=== PATIENT | male | born 1965 | race African-American/Black ===

== ENCOUNTER 2016-04-19 18:23 | Emergency (ER) | payer OTHER ==
[2016-04-19 18:28] VITALS: BP 173/88
--- NOTE | 2016-04-19 18:34 | PROVIDER DOCUMENTATION ---
HPI-Male Problem - General Chief Complaint: UTI Symptoms Stated Complaint: BACK PAIN, PAINFUL URINATION Time Seen by Provider: 04/19/16 18:32 Source: patient Allergies/Adverse Reactions: Patient Allergies Allergy/AdvReac Type Severity Reaction Status Date / Time aspirin AdvReac NAUSEA/VOMI Verified 04/19/16 18:31 TING Home Medications: Home Medication List Medication Instructions Recorded Confirmed Last Taken Type Citalopram [Celexa] 40 mg PO QHS 10/25/15 04/19/16 04/18/16 History Fexofenadine HCl 180 mg PO QAM 10/25/15 04/19/16 04/19/16 09:00 History Multivitamin [Multivitamins] 1 each PO DAILY 11/08/15 04/19/16 04/19/16 09:00 History Carbidopa/Levodopa [Carbidopa-Levo 1 tab PO BID 02/29/16 04/19/16 04/19/16 09: 00 History ER 25-100 Tab] Metoprolol Succinate E.r. [Toprol 50 mg PO BID #0 tablet 03/03/16 04/19/1604/19 09:00 Rx Xl] Bupropion S.r. [Wellbutrin Sr] 150 mg PO QAM 04/19/16 04/19/16 04/19/16 09:00 History Cyclobenzaprine [Flexeril] 10 mg PO TID #20 tablet 04/19/16 Unknown Rx Gabapentin 100 mg PO TID 04/19/16 04/19/16 04/19/16 09:00 History Ibuprofen [Motrin] 800 mg PO Q8H PRN PRN #20 tablet 04/19/16 Unknown Rx Insulin Aspart Prot/Insuln Asp 55 unit SQ BID 04/19/16 04/19/16 04/19/16 09:00 History [Novolog Mix 70-30 Flexpen Syrn] Multivit-Min/FA/Lycopen/Lutein 1 each PO DAILY 04/19/16 04/19/16 04/19/16 09:00 History [Complete Multi 50+ Tablet] Omeprazole 40 mg PO DAILY 04/19/16 04/19/16 04/19/16 09:00 History Omeprazole [Prilosec] 20 mg PO DAILY@0700 #20 capsule 04/19/16 Unknown Rx - History of Present Illness-Male Nature of Presenting Problem: Pt is a 51 y/o M c chief complaint of R lower lumbar back pain radiating to his R buttocks x 2 hours. Pt has a h/o chronic lower lumbar back pain. Pt denies any dysuria, denies any loss of sensation to lower extremities or groin, denies any incontinence to bowel or bladder. On arrival, pt is ambulatory and in no distress. Review of Systems - Adult - REVIEW OF SYSTEMS - ADULT Constitutional: reports: no symptoms reported. denies: chills, fatique Eyes: reports: no symptoms reported. denies: blurred vision, double vision Ears, Nose, Mouth & Throat: reports: no symptoms reported. denies: ear pain, nose pain, throat pain Cardiovascular: reports: no symptoms reported. denies: chest pain, irregular heart rate Respiratory: reports: no symptoms reported. denies: cough, shortness of breath Gastrointestinal: reports: no symptoms reported. denies: abdominal pain, nausea Genitourinary: reports: no symptoms reported. denies: dysuria, frequent UTI's Musculoskeletal: reports: no symptoms reported. denies: joint pain, joint swelling Integumentary: reports: no symptoms reported. denies: hives, itching, rash Neurological: reports: no symptoms reported. denies: numbness, paresthesia Psychiatric: reports: no symptoms reported. denies: anxiety, emotional problems Endocrine: reports: no symptoms reported. denies: cold intolerance, heat intolerance Hematologic/Lymphatic: reports: no symptoms reported. denies: blood clots, low blood count Allergic/Immunologic: reports: no symptoms reported. denies: allergic reactions , food allergy All Other Systems: Reviewed and Negative Past History - Adult - PAST MEDICAL HISTORY-ADULT Review of Records: reports: Old Records Reviewed, Nursing Assessment Review, Medications Reviewed, Social history reviewed & non-contributory. Major Childhood Illnesses: reports: denies history Cardiovascular: reports: CHF, HTN Respiratory: reports: denies history Gastrointestinal: reports: denies history Obstetrical/Gynecological: reports: denies history Genitourinary: reports: denies history Musculoskeletal: reports: chronic pain (BACK) Neurological: reports: denies history Endocrine/Immune: reports: Diabetes Other Conditions: reports: other Additional History: mental deficits - PRIOR SURGERIES/PROCEDURES Surgical/Procedure History: reports: reviewed, not pertinent - PRIOR HOSPITALIZATIONS Prior Hospitalizations: reports: none - IMMUNIZATION STATUS Childhood Immunizations: See Nurse Assessment Flu Vaccine: See Nurse Assessment - FAMILY HISTORY Family History: reviewed, not pertinent - SOCIAL HISTORY Smoking: denies Substance Use: none/never Alcohol Use Frequency: never Living Situation: family Physical Exam-General - PHYSICAL EXAM-ADULT Initial Vital Signs Reviewed: Yes - CONSTITUTIONAL General Appearance: appears well, alert, no apparent distress - EYES Eyes: PERRL/EOMI, pink conjunctivae - HEAD, EARS, NOSE, MOUTH & THROAT HENMT: normocephalic/atraumatic, moist mucous membranes, normal ENT inspection - NECK Neck: non-tender - RESPIRATORY Respiratory: chest non-tender, lungs clear, normal breath sounds - CARDIOVASCULAR Cardiovascular: normal peripheral pulses, regular rate, rhythm, no edema - GASTROINTESTINAL (ABDOMEN) Abdominal Exam: normal bowel sounds, non tender, soft - MUSCULOSKELETAL Back Exam: normal inspection, no vertebral tenderness, CVA tenderness (RIGHT) Extremity: normal range of motion, non-tender, normal gait - SKIN Integumentary: normal color, normal turgor, warm/dry - NEUROLOGIC Neurologic: grossly normal, no motor/sensory deficits - PSYCHIATRIC Psych/Mental Status: normal mood/affect, normal thought content, normal thought process, oriented x 3 Progress - PLAN OF CARE/RESULTS Progress/Plan/Lab Results: Orders Category Date Time Status CHLAMYDIA AND GC BY PCR URINE [NAZARETH] Stat Lab 04/19/16 18:53 Received URINALYSIS W/POSS RFLX CULT [URINALYSIS] Stat Lab 04/19/16 18:53 Completed Laboratory Tests 04/19/16 18:53 Urine Source CLEAN CATCH Urine Color YELLOW Urine Turbidity CLEAR Urine pH 5.5 Ur Specific Marcell 1.017 Urine Protein NEGATIVE Ur Glucose (Stick) NEGATIVE Ur Ketones (Stick) NEGATIVE Urine Blood NEGATIVE Urine Nitrite NEGATIVE Urine Bilirubin NEGATIVE Urobilinogen Dipstick 2 A Urine Leukocytes NEGATIVE Urine WBC (Auto) <10 Urine RBC (Auto) <10 U Epithel Cells (Auto) <10 Urine Bacteria (Auto) NEGATIVE Vital Signs - 24 hr 04/19/16 18:26 Temperature 98.2 F Pulse Rate 79 Respiratory 18 Rate Blood Pressure 173/88 O2 Sat by Pulse 95 Oximetry - REASSESSMENT Reassessment #1 Time Reassessed: 19:30 (PT IS IN NO DISTRESS AND SLEEPING IN THE EXAM ROOM) Departure - Departure Time of Disposition Order: 19:24 DIAGNOSIS: Lumbar back pain Qualifiers: Chronicity: acute Back pain laterality: right Sciatica presence: with sciatica Sciatica laterality: sciatica of right side Qualified Code(s): M54.41 - Lumbago with sciatica, right side Disposition: HOME 01 Certified Medical Emergency: Emergent Condition: Stable Additional Instructions: ED Follow Up Instructions: You have been treated by a care provider in the Emergency Department. These instructions are being provided to you so you can have an understanding of how to care for yourself upon discharge. Upon discharge from the Emergency Department, you are responsible for making arrangements for follow-up care by a physician of your choice. Take all prescribed medications as directed. Return to the Emergency Department immediately for any new or worsening symptoms. You may call the Physician Referral phone number at [phone] to obtain a list of Physicians who are taking new patients. Prescriptions: Cyclobenzaprine [Flexeril] 10 mg PO TID #20 tablet Ibuprofen [Motrin] 800 mg PO Q8H PRN PRN #20 tablet PRN Reason: inflammation Omeprazole [Prilosec] 20 mg PO DAILY@0700 #20 capsule Referrals: Feliciano Rossi MD [Primary Care Provider] - Call for Appoint. -1 week (Call Office to Schedule follow-up visit in week(s)) Instructions: Back Pain, Adult, [id number] Attestation - Physician/ FRANCO Attestation Patient care was provided by Advanced Practice Provider:: Yes Advanced Practice Provider:: Carlos Lara Advanced Practice Provider documentation review:: The Mid-level provider documentation, treatment plan and medical decision making was reviewed by the physician who agrees with all treatment and medical decision making by the MLP.
[2016-04-19 18:56] LABS: URINE CULTURE NEEDED? NO; URINE MICRO REVIEW NEEDED? NO; URINE SOURCE CLEAN CATCH
[2016-04-19 19:09] LABS: BILIRUBIN URINE NEGATIVE (NEGATIVE); BLOOD URINE NEGATIVE (NEGATIVE); COLOR YELLOW; GLUCOSE URINE NEGATIVE (NEGATIVE); LEUKOCYTES URINE NEGATIVE (NEGATIVE); NITRITE URINE NEGATIVE (NEGATIVE); PH URINE 5.5; PROTEIN URINE NEGATIVE (NEGATIVE); SP GRAVITY URINE 1.017; TURBIDITY URINE CLEAR (CLEAR); UROBILINOGEN URINE 2 mg/dL (NORMAL)
[2016-04-19 19:11] LABS: UR EPITHELIAL CELLS <10 /HPF (<10); URINE BACTERIA NEGATIVE /HPF; URINE RBC <10 /HPF (<10); URINE WBC <10 /HPF (<10)
== END 2016-04-19 19:32 | disposition home or self-care (01) ==
LOC: ED 18:23
DX: M54.41 Lumbago with sciatica, right side (principal); M79.1 Myalgia; G89.29 Other chronic pain; I10 Essential (primary) hypertension; E11.9 Type 2 diabetes mellitus without complications; Z79.4 Long term (current) use of insulin; Z79.899 Other long term (current) drug therapy
CPT/HCPCS: 81001; 87491; 87591

== ENCOUNTER 2018-04-08 09:25 | Inpatient (IN) ==
--- NOTE | 2018-04-08 09:42 | PROVIDER DOCUMENTATION ---
HPI-General Adult - General Stated Complaint: L-KNEE SWOLLEN/FALL-HOME Time Seen by Provider: 04/08/18 09:40 Source: patient Allergies/Adverse Reactions: Patient Allergies Allergy/AdvReac Type Severity Reaction Status Date / Time aspirin AdvReac NAUSEA/VOMI Verified 01/25/17 06:29 TING Home Medications: Home Medication List Medication Instructions Recorded Confirmed Last Taken Type Citalopram [Celexa] 40 mg PO QHS 10/25/15 01/25/17 01/24/17 09:00 History Fexofenadine HCl 180 mg PO QAM 10/25/15 01/25/17 01/24/17 09:00 History Multivitamin [Multivitamins] 1 each PO DAILY 11/08/15 01/25/17 01/24/17 09:00 History Carbidopa/Levodopa [Carbidopa-Levo 1 tab PO BID 02/29/16 01/25/17 01/24/17 09: 00 History ER 25-100 Tab] Metoprolol Succinate E.r. [Toprol 50 mg PO BID #0 tablet 03/03/16 01/25/1701/24 21:00 Rx Xl] Bupropion S.r. [Wellbutrin Sr] 150 mg PO QAM 04/19/16 01/25/17 1 Week Ago History ~01/18/17 Gabapentin 100 mg PO TID 04/19/16 01/25/17 01/24/17 21:00 History Omeprazole 40 mg PO DAILY 04/19/16 01/25/17 01/24/17 09:00 History Amlodipine [Norvasc] 10 mg PO DAILY 12/08/16 01/25/17 01/24/17 09:00 History Brimonidine/Timolol Ophth Soln 1 drop BID 12/08/16 01/25/17 01/24/17 09:00 History [Combigan Ophth Soln] Furosemide 40 mg PO DAILY 12/08/16 01/25/17 01/24/17 09:00 History Insulin Humalog 75/25 [Humalog Mix 55 unit SUBQ BID 12/08/16 01/25/17 01/23/17 History 75/25] Losartan/Hydrochlorothiazide 1 each PO QHS 12/08/16 01/25/17 01/24/17 21:00 History [Losartan-Hctz 100-12.5 mg Tab] Meloxicam 15 mg PO DAILY 12/08/16 01/25/17 1 Week Ago History ~01/18/17 Olopatadine 0.2% Oph Solution 1 drop OP QHS 12/08/16 01/25/17 01/24/17 21:00 History [Pataday 0.2% Oph Solution] Polyethylene Glycol 3350 [Miralax] 17 gm PO DAILY PRN PRN 12/08/16 01/25/1712/01 21:00 History Tetrahydrozoline Oph Drops [Visine 1 - 2 drop OP 4XDAY PRN PRN 12/08/1612/13/16 08:00 History Oph Drops] Acetaminophen [Tylenol] 1,000 mg PO Q6H tablet 12/17/16 01/25/17 01/24/17 09: 00 Rx Docusate Sodium [Colace] 100 mg PO BID capsule 12/17/16 01/25/17 01/24/17 09: 00 Rx Rivaroxaban [Xarelto] 10 mg PO Q24H #14 tab 12/17/16 01/25/17 1 Week Ago Rx ~01/18/17 Olanzapine 1 each PO BID 01/25/17 01/25/17 01/24/17 21:00 History Famotidine [Pepcid] 20 mg PO DAILY tablet 01/28/17 Unknown Rx Tramadol [Ultram] 100 mg PO Q6H #120 tab 01/28/17 Unknown Rx Oxycodone I.r. [Oxy Ir] 5 - 10 mg PO Q3H PRN PRN #60 tab 02/16/17 Unknown Rx - History of Present Illness -Gen Adult Nature of Presenting Problems: 53 yo male pt who presents to the ED with complaint of left knee pain, swelling , and possible infection. Hx of total knee replacement with infection in the past. He reports that he fell approximately 1 weeks ago causing the pain and swelling. Denies taking any pain medication [employer]. Review of Systems - Adult - REVIEW OF SYSTEMS - ADULT Constitutional: reports: see geo MORAN Eyes: reports: no symptoms reported Ears, Nose, Mouth & Throat: reports: no symptoms reported Cardiovascular: reports: no symptoms reported Respiratory: reports: no symptoms reported Gastrointestinal: reports: no symptoms reported Genitourinary: reports: no symptoms reported Musculoskeletal: reports: see HPI, joint pain, joint swelling Integumentary: reports: see HPI, skin sores/ulcer Neurological: reports: no symptoms reported Psychiatric: reports: no symptoms reported Endocrine: reports: no symptoms reported Hematologic/Lymphatic: reports: no symptoms reported Allergic/Immunologic: reports: no symptoms reported Past History - Adult - PAST MEDICAL HISTORY-ADULT Review of Records: reports: Old Records Reviewed, Nursing Assessment Review, Medications Reviewed, Social history reviewed & non-contributory. Major Childhood Illnesses: reports: denies history Cardiovascular: reports: HTN Respiratory: reports: denies history Gastrointestinal: reports: denies history Obstetrical/Gynecological: reports: denies history Genitourinary: reports: incontinence Musculoskeletal: reports: arthritis, chronic pain (BACK) Neurological: reports: Seizures/Epilepsy, other (MR) Psychiatric: reports: anxiety, depression Endocrine/Immune: reports: Diabetes Other Conditions: reports: denies history Additional History: mental deficits - PRIOR SURGERIES/PROCEDURES Surgical/Procedure History: reports: joint replacement (left knee), other ( hemorrhoids) - PRIOR HOSPITALIZATIONS Prior Hospitalizations: reports: none - IMMUNIZATION STATUS Childhood Immunizations: See Nurse Assessment Flu Vaccine: See Nurse Assessment - FAMILY HISTORY Family History: reviewed, not pertinent - SOCIAL HISTORY Smoking: denies Physical Exam-General - PHYSICAL EXAM-ADULT Initial Vital Signs Reviewed: Yes - CONSTITUTIONAL General Appearance: alert, no apparent distress - EYES Eyes: PERRL/EOMI, pink conjunctivae - HEAD, EARS, NOSE, MOUTH & THROAT HENMT: normocephalic/atraumatic, moist mucous membranes, normal ENT inspection - NECK Neck: non-tender, full range of motion, supple, normal inspection - RESPIRATORY Respiratory: chest non-tender, lungs clear, normal breath sounds, no pleuratic chest pain, no respiratory distress, no accessory muscle use - CARDIOVASCULAR Cardiovascular: normal peripheral pulses, regular rate, rhythm, no edema, no gallop, no JVD, no murmur - GASTROINTESTINAL (ABDOMEN) Abdominal Exam: normal bowel sounds, non tender, soft - MUSCULOSKELETAL Back Exam: normal inspection, no CVA tenderness, no vertebral tenderness Extremity: normal range of motion, other (left knee with significant swelling, redness, and draining ulcerations) Peripheral Pulses: radial (R): 2+, radial (L): 2+, dorsalis-pedis (R): 2+, dorsalis-pedis (L): 2+ - SKIN Integumentary: normal color, normal turgor, warm/dry, other (with exception to the left knee which has moderate swelling, and redness) - NEUROLOGIC Neurologic: grossly normal, no motor/sensory deficits - PSYCHIATRIC Psych/Mental Status: oriented x 3, depressed affect, other (flat affect) Progress - PLAN OF CARE/RESULTS Progress/Plan/Lab Results: Vital Signs - 8 hr 04/08/18 09:35 Temperature 97.8 F Pulse Rate 115 H Respiratory Rate 18 Blood Pressure 150/79 O2 Sat by Pulse Oximetry 99 Orders Category Date Time Status KNEE 3 VIEWS LEFT [RAD] Stat Exams 04/08/18 09:[address] Rossi was contacted, and he came to the ED and saw and admitted the pt. Result Diagrams: 04/08/18 10:25 04/08/18 10:25 Departure - Departure Date of Disposition Decision: 04/08/18 Time of Disposition Decision: 15:06 DIAGNOSIS: DKA (diabetic ketoacidoses), Septic joint of left knee joint Disposition: ADMITTED INPATIENT 09 Certified Medical Emergency: Emergent Condition: Serious - Critical Care Note This patient required my direct & personal management of CC.: Yes Total Time (mins): 35 Critical Care Statement: This patient required my direct personal management to treat or rule out processes, the absence of which, could potentiallly result in sudden, clinically significant life or limb threatening deterioration. Attestation - Physician/ FRANCO Attestation Patient care was provided by Advanced Practice Provider:: Yes Advanced Practice Provider:: Pedro Sanford Advanced Practice Provider documentation review:: The Mid-level provider documentation, treatment plan and medical decision making was reviewed by the physician who agrees with all treatment and medical decision making by the P. The physician spent face to face time with patient:: No Advanced Practice Provider documentation review:: Supervising physician onsite and consulted in the evaluation and care of this patient. The physician did not have a face to face encounter with the patient.
[2018-04-08] MEDS ORDERED: NS 2,600 ML IV ONE (09:47)
--- NOTE | 2018-04-08 10:03 | Diag Imaging Result Doc PS360 ---
EXAM: KNEE 3 VIEWS LEFT HISTORY: trauma, with swelling TECHNIQUE: Left knee, three views COMPARISON: None. FINDINGS: There has been prior orthopedic replacement about the knee. There is a large amount of soft tissue swelling anteriorly and laterally about the knee. There is air within the soft tissues. No foreign body identified. No fracture. No dislocation. IMPRESSION: There is a large amount of anterior and lateral soft tissue swelling at the knee, but no acute fracture. Electronically signed by Hugo Juares 04/08/2018 10:00 AM
--- NOTE | 2018-04-08 10:10 | Diag Imaging Result Doc PS360 ---
EXAM: CHEST-1 VIEW HISTORY: tachycardia TECHNIQUE: Chest single view COMPARISON: 02/11/2017 FINDINGS: The lungs are well expanded. The heart is not enlarged. The vessels are not distended. There are no infiltrates. There may be a tiny left pleural effusion. Mild scoliosis IMPRESSION: Questionable tiny left pleural effusion. Electronically signed by Hugo Juares 04/08/2018 10:08 AM
[2018-04-08 10:59] LABS: BASO# 0.03 X1000 (0.0-0.2); BASO% 0.2 % (0.0-0.8); EOS# 0.01 X1000 (0.0-0.7); EOS% 0.1 % (0.0-10.0); HEMATOCRIT 41.9 % (42.0-52.0); HEMOGLOBIN 14.4 g/dL (14.0-18.0); IMM GRAN# 0.36 X1000 (0.0-0.04); LYMPH# 0.74 X1000 (1.2-3.4); LYMPH% 4.2 % (20.5-51.1); MCH 31.2 PG (27-31); MCHC 34.4 g/dL (33-37); MCV 90.9 FL (81-99); MONO# 1.19 X1000 (0.11-0.59); MONO% 6.7 % (1.7-9.3); MPV 10.7 FL (7.4-10.4); NEUT# 15.42 X1000 (1.4-6.5); NEUT% 86.8 % (42.2-75.2); PLT 778 X1000 (130-400); RBC 4.61 XMIL (4.7-6.1); WBC 17.75 X1000 (4.8-10.8)
[2018-04-08 11:15] LABS: INR 1.1
[2018-04-08] MEDS ORDERED: VANCOMYCIN 1 GM/NS 1 GM/250 ML IVPB IV ONE (11:22)
[2018-04-08] MEDS ORDERED: ZOFRAN IV ONE (11:22)
[2018-04-08] MEDS ORDERED: HUMULIN R IV ONE ×3 (11:22→16:29)
[2018-04-08 11:27] LABS: ALB/GLOB RATIO 0.8; CALCIUM 9.9 mg/dL (8.8-10.2); CREATININE 1.7 mg/dL (0.7-1.2); POTASSIUM 5.5 mmol/L (3.5-5.1); TOTAL BILIRUBIN 0.4 mg/dL (0.20-1.00); TOTAL PROTEIN 8.9 g/dL (6.3-8.3)
[2018-04-08 11:45] LABS: BANDS 14 % (0-1); CK INDEX 4.1 (0.0-2.5); CK-MB 22.56 ng/mL (0.0-5.0); LYMPHS 4 % (21-51); MONO 2 % (1-9); SEGS 74 % (42-75)
[2018-04-08 12:42] LABS: URINE SOURCE CLEAN CATCH
[2018-04-08 13:13] LABS: BILIRUBIN URINE NEGATIVE (NEGATIVE); BLOOD URINE MODERATE (NEGATIVE); COLOR YELLOW; GLUCOSE URINE >1000 mg/dL (NEGATIVE); KETONE URINE >150 mg/dL (NEGATIVE); LEUKOCYTES URINE MODERATE (NEGATIVE); NITRITE URINE NEGATIVE (NEGATIVE); PROTEIN URINE 30 mg/dL (NEGATIVE); SP GRAVITY URINE 1.021; TURBIDITY URINE CLEAR (CLEAR); UROBILINOGEN URINE NORMAL (NORMAL)
[2018-04-08 13:25] LABS: UR EPITHELIAL CELLS <10 /HPF (<10); URINE BACTERIA 2+ /HPF; URINE YEAST PRESENT
[2018-04-08] MEDS ORDERED: HUMULIN R 100 UNIT in NS 100 ML IV SCH (14:00)
[2018-04-08] MEDS ORDERED: NS 1,000 ML IV ONE ×2 (14:19→19:43)
[2018-04-08] MEDS ORDERED: HUMALOG SUBQ SCH (16:00)
[2018-04-08] MEDS ORDERED: HUMULIN R 100 UNIT in NS 99 ML IV SCH (16:29)
[2018-04-08] MEDS: NS 1,000 ML IV SCH ×6 (17:15→22:32)
[2018-04-08] MEDS ORDERED: POTASSIUM CHLORIDE 40 MEQ/SWI 40 MEQ/100 ML IVPB IV PRN (17:57)
[2018-04-08] MEDS ORDERED: MAGNESIUM SULFATE 2 GM/S.W.I. 2 GM/50 ML IVPB IV PRN (17:57)
[2018-04-08] MEDS ORDERED: SODIUM PHOSPHATE 30 MMOL in D5W 250 ML IV PRN (17:57)
[2018-04-08] MEDS ORDERED: LEVAQUIN 250 MG/D5W 250 MG/50 ML IVPB IV SCH (19:43)
[2018-04-08] MEDS ORDERED: TYLENOL PO PRN (19:43)
[2018-04-08] MEDS ORDERED: SODIUM CHLORIDE 0.9% INJ PRN (19:43)
[2018-04-08] MEDS ORDERED: PHENERGAN IV PRN (19:43)
[2018-04-08 19:44] LABS: AGAP 23; BUN 24 mg/dL (8-22); CHLORIDE 98 mmol/L (98-107); COSMO 283; CREATININE 1.4 mg/dL (0.7-1.2); ESTIMATED GFR > 60; GLUCOSE 326 mg/dL (70-104); PHOSPHORUS 1.1 mg/dL (2.7-4.5); POTASSIUM 4.2 mmol/L (3.5-5.1); SODIUM 133 mmol/L (136-145); TCO2 12 mmol/L (25-35)
[2018-04-08 19:57] LABS: URINE SOURCE CATH
[2018-04-08 19:59] LABS: BILIRUBIN URINE NEGATIVE (NEGATIVE); BLOOD URINE SMALL (NEGATIVE); COLOR STRAW; GLUCOSE URINE >1000 mg/dL (NEGATIVE); KETONE URINE >150 mg/dL (NEGATIVE); LEUKOCYTES URINE NEGATIVE (NEGATIVE); NITRITE URINE NEGATIVE (NEGATIVE); PROTEIN URINE TRACE mg/dL (NEGATIVE); SP GRAVITY URINE 1.021; TURBIDITY URINE HAZY (CLEAR); UROBILINOGEN URINE NORMAL (NORMAL)
[2018-04-08 20:00] LABS: UR EPITHELIAL CELLS <10 /HPF (<10); URINE BACTERIA NEGATIVE /HPF; URINE RBC <10 /HPF (<10); URINE WBC <10 /HPF (<10)
--- NOTE | 2018-04-08 20:06 | HISTORY AND PHYSICAL ---
HISTORY OF PRESENT ILLNESS: Mr. Galen Vega is a 53-year-old gentleman who is well known to me. He has a history of multiple medical problems including essential hypertension, gastroesophageal reflux disease, mixed hyperlipidemia, type 2 insulin-dependent diabetes mellitus complicated by polyneuropathy, and major depression. He has had a previous left knee periprosthetic patella fracture, status post left knee patellectomy in 01/2017. He presented to the ER today, complaining of a 3-day history of increasing swelling, pain and decreased range of motion in the left knee. In the ER they tapped the fluid in the left knee and noted that they were able to withdraw gross pus. The x-ray of the left knee demonstrated a large amount of anterior and lateral soft tissue swelling of the knee. No acute fracture was noted. His family reported that over the past several days he has been more confused, lethargic and difficult to arouse. He kept telling me over and over that it happened 2-3 days ago when I asked him to identify himself or whether or not he could tell me where he was located. As stated earlier, he does have a longstanding history of type 2 insulin-dependent diabetes mellitus complicated by polyneuropathy. Apparently he has not been taking his insulin regularly. He has had polyuria and polydipsia. His blood sugar was 672 on arrival. He has had polyuria and polydipsia. PAST MEDICAL HISTORY: Essential hypertension, type 2 insulin-dependent diabetes mellitus complicated by polyneuropathy, major depression, gastroesophageal reflux disease. PAST SURGICAL HISTORY: Hemorrhoidectomy, left total knee, left patellectomy. ALLERGIES: LOWELL inhibitors. FAMILY HISTORY: His father had known ischemic heart disease, status post [place], hypertension and rheumatoid arthritis. His mother has hypertension, COPD and insulin-dependent diabetes. One brother has hypertension and diabetes. One brother has gastroesophageal reflux disease. SOCIAL HISTORY: He denies the use of tobacco, alcohol or illicit drugs. MEDICATIONS: 1. Amlodipine 10 mg daily. 2. Combigan ophthalmic drops 1 drop to each eye b.i.d. 3. Wellbutrin SR 150 mg daily. 4. Sinemet 25/100 b.i.d. 5. Celexa 40 mg daily. 6. Colace 100 mg b.i.d. 7. Pepcid 20 mg daily. 8. Fexofenadine 180 mg daily. 9. Gabapentin 100 mg t.i.d. 10. Humalog 75/25, 55 units subcutaneously b.i.d. 11. Losartan/hydrochlorothiazide 100/12.5 mg daily. 12. Mobic 15 mg daily. 13. Metoprolol 50 mg b.i.d. 14. Zyprexa 2.5 mg b.i.d. REVIEW OF SYSTEMS: He denies any recent weight gain or weight loss. HEENT: No loss of visual or auditory acuity. CV: No chest pain, palpitations, or anginal equivalents. Pulmonary: No shortness of breath, PND or orthopnea. GI: No reflux, dysphagia, melena, hematochezia, change in bowel habits or rectal bleeding. Endocrine: He has polyuria and polydipsia. Skin: No easy bruisability. : No leakage of urine with coughing or laughing. Neurologic: No migraines or seizures. Psychiatric: He has a history of depression. PHYSICAL EXAMINATION: GENERAL: This is an acutely ill-appearing 53-year-old gentleman in no apparent distress. He is drowsy, sedated and does not answer questions appropriately. VITAL SIGNS: Temperature 97.8 degrees, pulse 115, respirations 18, BP 150/79. HEENT: Fundi with arteriolar wall thickening. Pupils equal, round, reactive to light. Extraocular eye movements intact. TMs without bullae. NECK: Supple. No masses, JVD or bruits. CARDIOVASCULAR: Regular rate and rhythm. LUNGS: Clear. ABDOMEN: Soft, nontender, with active bowel sounds. EXTREMITIES: He has significant soft tissue swelling and erythema of the left knee. GENITOURINARY/RECTAL: Exam is deferred. NEUROLOGIC: He moves all extremities grossly. He is sleepy and drowsy. He is oriented to name only. Cranial nerves 2-12 intact grossly. He has decreased light touch in the distal extremities bilaterally. LABORATORY DATA: Various laboratory studies were obtained. A CBC demonstrated a white count of 17.7, hemoglobin 14.4, hematocrit 41.9, platelet count 778,000. Electrolytes demonstrate the following: Sodium 122, potassium 5.5, chloride 79, BUN 30, creatinine 1.7, glucose 672. Urine demonstrated greater than 1000 mg of protein. He had a large acetone level. ASSESSMENT AND PLAN: 1. Metabolic encephalopathy. I suspect that he has a septic left knee associated with severe sepsis. He has a leukocytosis, greater than 12,000. Percent of bands is greater than 10%. He is tachycardic, tachypneic. We will begin broad-spectrum antibiotics including vancomycin, Zosyn and Levaquin pending blood and wound cultures. I have spoken to Dr. Ervin Yan about him. Once his sugars have been stabilized, I believe that he will need surgical incision, drainage and irrigation of the aforementioned knee. 2. Diabetic ketoacidosis. I am going to aggressively rehydrate him with normal saline. We gave him Humulin R 15 units in the emergency room. We will initiate the diabetic ketoacidosis protocol. Once his sugars are consistently below 200 and he is able to eat, we will transition him back to his regular home dosage of Novolin 75/25, 55 units subcutaneously b.i.d. 3. Hypertension. His blood pressure is stable. We will continue his current regimen of medications. cc: Capri Rossi MD
[2018-04-08] MEDS: LOVENOX SUBQ SCH (20:38)
[2018-04-08] MEDS ORDERED: CELEXA PO SCH (21:00)
[2018-04-08] MEDS ORDERED: HYZAAR 100/12.5 MG TAB PO SCH (21:00)
[2018-04-08] MEDS: D5 NS 1,000 ML IV SCH (21:53)
[2018-04-08] MEDS: POTASSIUM CHLORIDE 20 MEQ/SWI 20 MEQ/100 ML IVPB IV PRN (21:53)
[2018-04-08] MEDS: SINEMET CR 25/100 PO SCH (22:30)
[2018-04-08] MEDS: COLACE PO SCH (22:30)
[2018-04-08] MEDS: COMBIGAN OPHTH SOLN BOTH EYES SCH (22:31)
[2018-04-08] MEDS: ZYPREXA PO SCH (22:33)
[2018-04-08] MEDS: ZOSYN 2.25 GM in NS 50 ML IV SCH (22:33)
[2018-04-08] MEDS: NEURONTIN PO SCH (22:33)
[2018-04-08] MEDS: PATADAY 0.2% OPH SOLUTION BOTH EYES SCH (22:34)
--- NOTE | 2018-04-09 01:04 | CONSULTATION ---
DATE OF CONSULTATION: 04/08/2018 CHIEF COMPLAINT: Left knee swelling. HISTORY OF PRESENT ILLNESS: Galen Vega is a 53-year-old male who has uncontrolled diabetes as well as history of a left knee infection and poor compliance with medical care, partially due to his impaired cognitive function. He presented to the ER in diabetic ketoacidosis and Dr. Rossi asked me to see me in orthopedic consultation for his infected knee after they aspirated his knee. His index surgery was performed in November 2016. He fell thereafter , had a patellar fracture that was irreparable, had a patellectomy. Ultimately developed an infection in his knee and had an irrigation and debridement of his knee and has been on long-term antibiotics since that time. Past medical history, past surgical history, medicines, allergies, see admission history and physical. ROS: Unable to be obtained due to patient's mental status while in DKA. PHYSICAL EXAMINATION: Reveals he is cooperative with exam. His leg is markedly swollen. His knee is markedly swollen as well. His foot is otherwise neurovascularly intact. LABS: His white count is almost 18,000. His blood sugar is now down to 276 from initially about 491. He had cloudy fluid aspirated from his knee. ASSESSMENT: Infected left total knee arthroplasty. PLAN: We will plan due to his noncompliance to remove his total knee, performing irrigation and debridement of his knee, place an antibiotic spacer, and place a spanning Ex- Fix. Once the infection is cleared, we will likely do a fusion nail. cc: MD Capri Sarmiento MD [facility] HOSPITALAbdirashid
[2018-04-09] MEDS: D5 NS 1,000 ML IV SCH ×2 (03:39→06:11)
[2018-04-09 03:55] LABS: AGAP 11; BUN 16 mg/dL (8-22); CALCIUM 9.2 mg/dL (8.8-10.2); CHLORIDE 102 mmol/L (98-107); COSMO 277; ESTIMATED GFR > 60; GLUCOSE 203 mg/dL (70-104); MAGNESIUM 1.9 mg/dL (1.5-2.7); PHOSPHORUS 1.2 mg/dL (2.7-4.5); POTASSIUM 3.3 mmol/L (3.5-5.1); SODIUM 135 mmol/L (136-145); TCO2 22 mmol/L (25-35)
[2018-04-09] MEDS: POTASSIUM CHLORIDE 20 MEQ/SWI 20 MEQ/100 ML IVPB IV PRN ×2 (04:20→16:51)
[2018-04-09] MEDS: ZOSYN 2.25 GM in NS 50 ML IV SCH ×2 (04:20→10:15)
[2018-04-09] MEDS: POTASSIUM CHLORIDE 20 MEQ/SWI 20 MEQ/100 ML IVPB IV SCH ×3 (05:28→16:43)
[2018-04-09] MEDS ORDERED: PRILOSEC PO SCH (07:00)
[2018-04-09] MEDS ORDERED: THERA M PLUS PO SCH (09:00)
[2018-04-09] MEDS ORDERED: WELLBUTRIN SR PO SCH (09:00)
[2018-04-09] MEDS ORDERED: PEPCID PO SCH (09:00)
[2018-04-09] MEDS ORDERED: ALLEGRA PO SCH (09:00)
[2018-04-09] MEDS ORDERED: NORVASC PO SCH (09:00)
[2018-04-09] MEDS ORDERED: LR 1,000 ML IV SCH (10:00)
[2018-04-09] MEDS ORDERED: VANCOMYCIN ONE (10:12)
[2018-04-09] MEDS ORDERED: DIPRIVAN 1% ONE (10:13)
[2018-04-09] MEDS ORDERED: XYLOCAINE-MPF 2% ONE (10:13)
[2018-04-09] MEDS ORDERED: TOBRAMYCIN IV PER PHARMACY MISC SCH (10:15)
[2018-04-09] MEDS ORDERED: VANCOMYCIN IV PER PHARMACY MISC SCH (10:15)
[2018-04-09 10:27] LABS: URINE SOURCE CATH
[2018-04-09] MEDS ORDERED: TOBRAMYCIN POWDER MISC ONE (10:30)
[2018-04-09 10:31] LABS: BILIRUBIN URINE SMALL (NEGATIVE); BLOOD URINE MODERATE (NEGATIVE); CLARITY SLIGHTLY CLOUDY (CLEAR); COLOR YELLOW; GLUCOSE URINE 250 mg/dL (NEGATIVE); KETONE URINE TRACE mg/dL (NEGATIVE); LEUKOCYTES URINE NEGATIVE (NEGATIVE); NITRITE URINE NEGATIVE (NEGATIVE); PROTEIN URINE 30 mg/dL (NEGATIVE); UROBILINOGEN URINE 0.2 EU/dL (0.2-1.0)
[2018-04-09] MEDS ORDERED: VANCOMYCIN 2,500 MG in NS 500 ML IV ONE ×2 (11:00→14:30)
[2018-04-09] MEDS ORDERED: FENTANYL ONE (11:18)
[2018-04-09] MEDS ORDERED: SODIUM CHLORIDE 0.9% 10 ML ONE (11:45)
[2018-04-09] MEDS ORDERED: NEO-SYNEPHRINE ONE (11:49)
[2018-04-09] MEDS ORDERED: DILAUDID ONE (11:52)
[2018-04-09] MEDS ORDERED: ZOFRAN ONE (12:09)
[2018-04-09] MEDS ORDERED: NEOSPORIN G.U. IRRIGANT ONE (13:20)
[2018-04-09] MEDS ORDERED: QUELICIN (DOSE) ONE (14:50)
[2018-04-09] MEDS ORDERED: NARCAN ONE (15:00)
[2018-04-09 15:17] LABS: ALLEN TEST YES; BE -4.3 mmoll (-3.0-3.0); BLOOD TYPE ARTERIAL; HCO3-(ACT) 21.2 mmoll (20.0-26.0); METHB 1.3 % (0.0-1.5); O2(CT) 14.2 mL/dL (15.0-23.0); SAMPLE BLOOD; SAO2 87.1 % (95.0-100.0); THB 12.2 g/dL (11.5-17.4); pH(98.6) 7.24 (7.35-7.45)
[2018-04-09 15:19] LABS: MODALITY COOL AEROSOL; O2HB 82.7 % (95.0-99.0); PCO2(98.6) 55 mmHg (35-45); PO2(98.6) 45 mmHg (60-100)
[2018-04-09 15:47] LABS: BASO# 0.06 X1000 (0.0-0.2); BASO% 0.3 % (0.0-0.8); EOS# 0.01 X1000 (0.0-0.7); HEMOGLOBIN 12.5 g/dL (14.0-18.0); IMM GRAN# 0.36 X1000 (0.0-0.04); IMM GRAN% 1.5 % (0.0-0.5); LYMPH# 1.21 X1000 (1.2-3.4); LYMPH% 5.2 % (20.5-51.1); MCH 32.1 PG (27-31); MCHC 35.7 g/dL (33-37); MONO# 2.32 X1000 (0.11-0.59); MONO% 9.9 % (1.7-9.3); MPV 9.9 FL (7.4-10.4); NEUT# 19.43 X1000 (1.4-6.5); NEUT% 83.1 % (42.2-75.2); PLT 756 X1000 (130-400); RBC 3.89 XMIL (4.7-6.1); RDW 12.8 % (11.5-14.5); WBC 23.39 X1000 (4.8-10.8)
[2018-04-09 16:07] LABS: BANDS 6 % (0-1); LYMPHS 10 % (21-51); MONO 3 % (1-9); SEGS 79 % (42-75)
--- NOTE | 2018-04-09 16:07 | Diag Imaging Result Doc PS360 ---
EXAM: CHEST-1 VIEW HISTORY: O2 sat drop TECHNIQUE: Chest single view COMPARISON: 04/08/2018 FINDINGS: The right hemidiaphragm is elevated. The heart is not enlarged. There are central vascular prominence. Questionable trace left pleural fluid. No consolidation. IMPRESSION: Mild central vascular prominence. Electronically signed by Hugo Juares 04/09/2018 4:05 PM
[2018-04-09 16:09] LABS: LARGE PLATELETS OCCASIONAL
[2018-04-09 16:18] LABS: AGAP 12; ALB/GLOB RATIO 0.7; ALBUMIN 2.5 g/dL (3.5-5.0); ALKALINE PHOSPHATASE 132 U/L (32-122); BUN 15 mg/dL (8-22); CALCIUM 8.5 mg/dL (8.8-10.2); CHLORIDE 107 mmol/L (98-107); COSMO 283; CREATININE 1.2 mg/dL (0.7-1.2); ESTIMATED GFR > 60; GLUCOSE 146 mg/dL (70-104); GOT 29 U/L (10-34); GPT 16 U/L (10-44); MAGNESIUM 1.8 mg/dL (1.5-2.7); PHOSPHORUS 2.9 mg/dL (2.7-4.5); SODIUM 140 mmol/L (136-145); TCO2 21 mmol/L (25-35); TOTAL PROTEIN 6.2 g/dL (6.3-8.3)
[2018-04-09 16:19] LABS: BODY FLUID SOURCE MISCELLANEOUS; WBC BF 52 /cumm
[2018-04-09] MEDS: NEURONTIN PO SCH ×3 (16:29→17:14)
[2018-04-09] MEDS: COLACE PO SCH (16:29)
[2018-04-09] MEDS: ZYPREXA PO SCH (16:30)
[2018-04-09] MEDS: SINEMET CR 25/100 PO SCH (16:30)
[2018-04-09] MEDS: COMBIGAN OPHTH SOLN BOTH EYES SCH ×2 (16:43→22:00)
[2018-04-09 16:53] LABS: POLYS 6 %
[2018-04-09 16:54] LABS: MONOS 94 %
[2018-04-09 17:52] LABS: ALLEN TEST YES; BE -5.9 mmoll (-3.0-3.0); BLOOD TYPE ARTERIAL; HCO3-(ACT) 20.3 mmoll (20.0-26.0); METHB 1.5 % (0.0-1.5); O2(CT) 16.4 mL/dL (15.0-23.0); O2HB 95.6 % (95.0-99.0); PO2(98.6) 183 mmHg (60-100); SAMPLE BLOOD; SAO2 100.2 % (95.0-100.0); THB 11.9 g/dL (11.5-17.4)
[2018-04-09 17:56] LABS: MODALITY BI PAP; PCO2(98.6) 71 mmHg (35-45); pH(98.6) 7.14 (7.35-7.45)
[2018-04-09] MEDS: D5 LR 1,000 ML IV SCH (18:08)
--- NOTE | 2018-04-09 18:13 | Diag Imaging Result Doc PS360 ---
EXAM: CHEST-PORTABLE HISTORY: apnea, labored breathing TECHNIQUE: Verbal chest single view COMPARISON: 3:39 PM FINDINGS: Worsening pulmonary edema since the prior exam. Atelectasis versus infiltrates have developed in the right lung base. No other interval change. Electronically signed by Hugo Juares 04/09/2018 6:10 PM
[2018-04-09] MEDS ORDERED: DOPAMINE 800 MG/D5W 800 MG/500 ML IV.SOLN IV SCH ×2 (18:15→20:00)
[2018-04-09] MEDS ORDERED: VERSED IV ONE (18:35)
[2018-04-09] MEDS ORDERED: VERSED ONE (18:38)
[2018-04-09] MEDS ORDERED: AMIDATE ONE (18:38)
[2018-04-09] MEDS ORDERED: NORCURON ONE (18:38)
[2018-04-09] MEDS ORDERED: QUELICIN ONE (18:38)
[2018-04-09] MEDS ORDERED: QUELICIN IV ONE (18:40)
--- NOTE | 2018-04-09 19:25 | Diag Imaging Result Doc PS360 ---
EXAM: CHEST-PORTABLE HISTORY: intubation confirmation TECHNIQUE: Chest single view COMPARISON: 6:01 PM FINDINGS: An endotracheal tube has been placed. The tip is located approximately 3 to 4 cm above the jorge a and is in good position. There is a wire coiled over the thoracic inlet. This may be on the skin surface. However if a nasogastric tube has been placed, it is an an incorrect position and does not pass through the distal esophagus and into the stomach. Electronically signed by Hugo Juares 04/09/2018 7:22 PM
--- NOTE | 2018-04-09 20:11 | OPERATIVE NOTE ---
PROCEDURE DATE: 04/09/2018 PREOPERATIVE DIAGNOSIS: Left infected total knee arthroplasty. POSTOPERATIVE DIAGNOSIS: Left infected total knee arthroplasty. PROCEDURE: Removal of left total knee arthroplasty, irrigation, debridement of left knee, antibiotic bead placement, and spanning compressing external fixator. ANESTHESIA: General. SURGEON: Jasson Yan MD. TURNTABLE ENGINEER: EUGENE Gordillo. COMPLICATIONS: None. BLOOD LOSS: 300 mL. DRAINS: Hemovac x1. DESCRIPTION OF PROCEDURE: Patient brought to the operative suite and placed in supine position. After successful administration of general anesthesia, the left lower extremity was prepped and draped in usual sterile fashion. A sterile tourniquet was placed. The leg was exsanguinated. Tourniquet insufflated to 350 torr. A longitudinal incision was made using the previous incision. Cultures were obtained. It was copiously irrigated. The knee was then entered and cultures were again obtained. Necrotic tissue and the capsule of the infection both superficial and deep was excised including the synovium. The capsule was elevated medially and laterally using an oscillating saw. The femur and tibia were loosened and then osteotomes were used to completely remove the implants. Excess cement was removed with the osteotome and rongeurs. The necrotic tissue was removed as well. The knee was copiously irrigated with normal saline containing irrigant and then Bactisure, then normal saline containing irrigant and Vashe. Antibiotic beads with Tobramycin and vancomycin were placed in the tibial canal around the femur and around the anterior femur as well. The wound was then closed with Prolene sutures and a sterile dressing was applied after placing a drain that exited superior laterally, the next 2 pins were placed in the tibia and 2 Schanz pins were placed in the femur and then an external fixator was constructed. An x-ray showed excellent alignment of the tibia and the femur. We compressed it as well and re- tightened. Excellent compression and excellent alignment of the femur was obtained. The pin sites were covered sterilely and then 2 Alexi wraps were placed around it as well. A cooling blanket was applied. The patient tolerated the procedure without complication. At the end of the procedure, all counts were correct. The patient was transferred to the recovery room in stable condition. cc: MD Capri Sarmiento MD
[2018-04-09] MEDS: LOVENOX SUBQ SCH (20:25)
[2018-04-09] MEDS: PROTONIX IV SCH (20:26)
[2018-04-09 20:38] LABS: ALLEN TEST YES; BE -5.1 mmoll (-3.0-3.0); BLOOD TYPE ARTERIAL; HCO3-(ACT) 20.8 mmoll (20.0-26.0); MODALITY VENTILATOR; O2HB 91.9 % (95.0-99.0); PCO2(98.6) 40 mmHg (35-45); PO2(98.6) 64 mmHg (60-100); SAMPLE BLOOD; SAO2 96.8 % (95.0-100.0); SRATE 18 BPM; THB 11.6 g/dL (11.5-17.4); TVOL 550 mL; pH(98.6) 7.32 (7.35-7.45)
[2018-04-09] MEDS ORDERED: TOPROL XL PO SCH (21:00)
[2018-04-09 21:04] LABS: MAGNESIUM 1.8 mg/dL (1.5-2.7); PHOSPHORUS 4.4 mg/dL (2.7-4.5)
[2018-04-09] MEDS: PATADAY 0.2% OPH SOLUTION BOTH EYES SCH (22:00)
[2018-04-09] MEDS: MYCOSTATIN CREAM TOP SCH (22:00)
[2018-04-09] MEDS ORDERED: DIPRIVAN 1% 1,000 MG/100 ML BOTTLE IV SCH (22:00)
[2018-04-09] MEDS: MORPHINE IV PRN (22:20)
[2018-04-09] MEDS: DUONEB (A & A) INH SCH (23:44)
[2018-04-10 00:08] LABS: AGAP 15; BUN 20 mg/dL (8-22); CALCIUM 8.3 mg/dL (8.8-10.2); CHLORIDE 104 mmol/L (98-107); COSMO 283; CREATININE 1.3 mg/dL (0.7-1.2); ESTIMATED GFR > 60; GLUCOSE 220 mg/dL (70-104); POTASSIUM 4.7 mmol/L (3.5-5.1); SODIUM 137 mmol/L (136-145); TCO2 18 mmol/L (25-35)
[2018-04-10] MEDS: DUONEB (A & A) INH SCH ×6 (03:29→23:26)
[2018-04-10 04:05] LABS: CALCIUM 7.6 mg/dL (8.8-10.2); POTASSIUM 4.5 mmol/L (3.5-5.1)
[2018-04-10] MEDS: D5 LR 1,000 ML IV SCH ×3 (04:33→17:32)
[2018-04-10 04:52] LABS: ALLEN TEST YES; BLOOD TYPE ARTERIAL; HCO3-(ACT) 22.4 mmoll (20.0-26.0); METHB 1.6 % (0.0-1.5); MODALITY VENTILATOR; O2(CT) 21.1 mL/dL (15.0-23.0); O2HB 93.2 % (95.0-99.0); PCO2(98.6) 35 mmHg (35-45); PO2(98.6) 72 mmHg (60-100); SAMPLE BLOOD; SAO2 97.3 % (95.0-100.0); SRATE 18 BPM; THB 16.1 g/dL (11.5-17.4); TVOL 550 mL; pH(98.6) 7.39 (7.35-7.45)
[2018-04-10] MEDS ORDERED: POTASSIUM CHLORIDE 20 MEQ/SWI 20 MEQ/100 ML IVPB IV ONE (05:14)
[2018-04-10 06:18] LABS: HEMATOCRIT 27.5 % (42.0-52.0); HEMOGLOBIN 9.8 g/dL (14.0-18.0); MCH 32.3 PG (27-31); MCHC 35.6 g/dL (33-37); MCV 90.8 FL (81-99); MPV 10.4 FL (7.4-10.4); RBC 3.03 XMIL (4.7-6.1); WBC 38.84 X1000 (4.8-10.8)
[2018-04-10 06:27] LABS: MAGNESIUM 1.7 mg/dL (1.5-2.7); PHOSPHORUS 1.9 mg/dL (2.7-4.5)
[2018-04-10] MEDS ORDERED: MAGNESIUM SULFATE 2 GM/S.W.I. 2 GM/50 ML IVPB IV PRN ×2 (06:36→06:54)
[2018-04-10 06:49] LABS: ALB/GLOB RATIO 0.6; ALBUMIN 2.2 g/dL (3.5-5.0); TOTAL BILIRUBIN 0.67 mg/dL (0.20-1.00); TOTAL PROTEIN 5.6 g/dL (6.3-8.3)
[2018-04-10] MEDS ORDERED: NS 500 ML IV ONE ×2 (07:22→16:55)
[2018-04-10] MEDS: ATIVAN IV PRN (08:30)
[2018-04-10] MEDS: MORPHINE IV PRN (08:30)
[2018-04-10] MEDS: COMBIGAN OPHTH SOLN BOTH EYES SCH ×2 (08:49→20:28)
--- NOTE | 2018-04-10 08:49 | Diag Imaging Result Doc PS360 ---
EXAM: CHEST-PORTABLE - 04/10/2018 HISTORY: respiratory failure TECHNIQUE: Portable chest COMPARISON: 04/09/2018 FINDINGS: There is an endotracheal tube is tip approximately 6.5 cm above the jorge a. There is a nasogastric tube which can be followed to the mid stomach. Heart size appears within normal limits. There is subsegmental atelectasis at the bilateral lung bases. There is possibly mild perihilar edema on the right. There is no other consolidation, substantial pleural effusion, or pneumothorax identified. IMPRESSION: Bibasilar subsegmental atelectasis. Possible mild perihilar edema on the right. Electronically signed by Richard Gregg 04/10/2018 8:47 AM
[2018-04-10] MEDS: MYCOSTATIN CREAM TOP SCH ×2 (08:51→20:28)
[2018-04-10] MEDS ORDERED: VANCOMYCIN 1,700 MG in NS 250 ML IV SCH (09:00)
--- NOTE | 2018-04-10 11:18 | PULMONOLOGY CONSULTATION ---
DATE: 04/10/2018 REQUESTING PHYSICIAN: Dr. Conrad. REASON FOR CONSULTATION: Respiratory failure. HISTORY OF PRESENT ILLNESS: Mr. Vega is a 53-year-old, black male with insulin-requiring diabetes mellitus who underwent a left total knee arthroplasty on 12/14/2016. Unfortunately, in January of 2017, he fractured his leg and required a patellectomy. He subsequently required irrigation and debridement of his left total knee arthroplasty and MRSA was identified. He received 6 weeks of antibiotics under the direction of Dr. Dale De Leon. Then, according to the plan, he was to be placed on a chronic suppressive antibiotic (doxycycline or Bactrim). The patient presented to the emergency room on 04/08/2018 with increased pain, increased swelling in his left knee, along with DKA. The patient was taken to the operating room. His left knee joint was removed and antibiotic beads were placed into the resulting space. An external fixator was applied. The patient was successfully extubated but did require BiPAP after surgery. The patient's respiratory status became more labored last evening. He required intubation and initiation of mechanical ventilation. PAST MEDICAL HISTORY/PROBLEM LIST: 1. Diabetes mellitus, as per above. 2. Hypertension. 3. Neuropathy. 4. Gastroesophageal reflux disease. 5. Arthritis. SOCIAL HISTORY: No alcohol or tobacco use noted on his intake H and P. REVIEW OF SYSTEMS: Cannot be obtained. PHYSICAL EXAMINATION: General: Reveals an acutely ill-appearing male who appears older than his stated age, on mechanical ventilation. Vital Signs: Blood pressure 112/67, heart rate 107, respiratory rate 18, oxygen saturation 98%. HEENT: Pupils are equal and reactive. Oropharynx appears clear. Neck: Supple. Chest: Reveals good air entry bilaterally with coarse rhonchi. Cardiac Examination: S1, S2. Abdomen: Soft, with diminished bowel sounds. Extremities: Reveal an external fixator in place on the left at the site of the removal of the left total knee arthroplasty. LABORATORY DATA: Two blood cultures from the are growing methicillin- resistant Staphylococcus aureus. Sputum culture is pending. Knee cultures are pending. White blood count 38.8, hemoglobin 9.8, platelet count 545,000. Arterial blood gas prior to intubation, pH 7.14, pCO2 of 71, PO2 of 183. Arterial blood gas this morning, pH of 7.39, pCO2 of 35 , PO2 of 72. White blood count 38.8 thousand, hemoglobin 9.8, platelet count 545,000. Chest x-ray reveals bibasilar infiltrates. IMPRESSION: A 53-year-old with diabetes mellitus, who presents with an infected left knee joint, bacteremia, acute hypoxemic respiratory failure, acute hypercapnic respiratory failure, leukocytosis, diabetic ketoacidosis which has resolved, possible pneumonia. RECOMMENDATIONS: 1. Continue ventilatory support. We will evaluate for weaning tomorrow, pending results of chest x-ray and overall clinical status. 2. Await sputum culture report. 3. We will add gram-negative coverage in the event that his pulmonary infiltrates are not Staphylococcus aureus. 4. Routine bronchodilator management. 5. Routine gastric acid suppression. 6. Consider nutrition support if he is not extubated in the short term. Time spent in critical care management: 1 hour cc: MD Capri Schmidt MD MTDAbdirashid
[2018-04-10] MEDS: ZOSYN 3.375 GM in NS 50 ML IV SCH ×3 (11:30→23:00)
[2018-04-10] MEDS: HUMULIN R SUBQ SCH ×3 (12:20→20:46)
--- NOTE | 2018-04-10 15:38 | PROGRESS NOTE ---
DATE: 04/10/2018 SUBJECTIVE: Galen Vega is a 53-year-old male who is postoperative day 1 from a removal of prosthesis, irrigation, debridement and ex fix placement. He is on the ventilator and appears comfortable. His leg appears to be neurovascular intact with palpable pulses. He grimaces when moving his leg. The ex fix is in good position, there has been minimal drainage and no soiling of the dressing. ASSESSMENT: Stable left knee. PLAN: Will continue his current management. We will likely remove his drain and possibly change dressing tomorrow and remove his ice cooler. If he continues to have swelling and impinges on the cross part of the external fixator we may have to revise his position of his external fixator. cc: MD Capri Sarmiento MD
[2018-04-10 19:24] LABS: CALCIUM 7.5 mg/dL (8.8-10.2); CREATININE 3.2 mg/dL (0.7-1.2)
[2018-04-10] MEDS: LOVENOX SUBQ SCH (20:27)
[2018-04-10] MEDS: PROTONIX IV SCH (20:28)
[2018-04-10] MEDS: PATADAY 0.2% OPH SOLUTION BOTH EYES SCH (20:28)
[2018-04-11] MEDS: D5 LR 1,000 ML IV SCH ×2 (00:47→09:54)
[2018-04-11] MEDS: DUONEB (A & A) INH SCH ×6 (03:18→22:59)
[2018-04-11] MEDS: ZOSYN 3.375 GM in NS 50 ML IV SCH ×2 (03:20→08:01)
[2018-04-11] MEDS: HUMULIN R SUBQ SCH ×5 (03:23→20:57)
[2018-04-11 04:46] LABS: ALLEN TEST YES; BLOOD TYPE ARTERIAL; HCO3-(ACT) 21.8 mmoll (20.0-26.0); METHB 2.2 % (0.0-1.5); O2(CT) 11.3 mL/dL (15.0-23.0); O2HB 94.8 % (95.0-99.0); PCO2(98.6) 35 mmHg (35-45); PO2(98.6) 107 mmHg (60-100); SAMPLE BLOOD; SAO2 99.9 % (95.0-100.0); SRATE 15 BPM; THB 8.3 g/dL (11.5-17.4); TVOL 550 mL; pH(98.6) 7.38 (7.35-7.45)
[2018-04-11 04:47] LABS: MODALITY VENTILATOR
[2018-04-11 06:30] LABS: MAGNESIUM 1.6 mg/dL (1.5-2.7); PHOSPHORUS 1.4 mg/dL (2.7-4.5)
[2018-04-11 06:36] LABS: ALB/GLOB RATIO 0.6; CREATININE 3.9 mg/dL (0.7-1.2); POTASSIUM 3.8 mmol/L (3.5-5.1); TOTAL BILIRUBIN 0.95 mg/dL (0.20-1.00); TOTAL PROTEIN 5.5 g/dL (6.3-8.3)
--- NOTE | 2018-04-11 07:04 | Diag Imaging Result Doc PS360 ---
EXAM: CHEST-PORTABLE 04/11/2018 HISTORY: respiratory failure TECHNIQUE: AP portable at 0508 COMMENT: There is an endotracheal tube with its tip of the thoracic inlet and an NG tube with its tip below the diaphragm. There is patchy perihilar and basilar opacity bilaterally consistent with pneumonia. This is not changed appreciably since 04/10/2018. IMPRESSION: Bronchopneumonia plus minus pulmonary edema. Electronically signed by Jorge A Nunez 04/11/2018 7:02 AM
[2018-04-11] MEDS: COMBIGAN OPHTH SOLN BOTH EYES SCH ×2 (08:00→21:02)
[2018-04-11 08:43] LABS: HEMATOCRIT 21.6 % (42.0-52.0); HEMOGLOBIN 7.4 g/dL (14.0-18.0); MCH 31.8 PG (27-31); MCHC 34.3 g/dL (33-37); MCV 92.7 FL (81-99); MPV 10.3 FL (7.4-10.4); RBC 2.33 XMIL (4.7-6.1); RDW 13.2 % (11.5-14.5); WBC 23.58 X1000 (4.8-10.8)
[2018-04-11] MEDS: NS 1,000 ML IV SCH ×2 (09:00→20:54)
--- NOTE | 2018-04-11 09:06 | PROGRESS NOTE ---
DATE: 04/11/2018 SUBJECTIVE: Mr. Vega was admitted to [facility] on 04/08/2018 with metabolic encephalopathy secondary to a septic left knee with severe sepsis. He was started on broad- spectrum antibiotics including Levaquin, Zosyn, and vancomycin pending cultures. Dr. Yan performed removal of the left total knee arthroplasty, irrigation, debridement of the left knee with antibiotic bead placement and spanning compressing external fixator. Postoperatively he developed acute respiratory failure with hypercapnia requiring intubation. Mr. Vgea remains intubated. His chest x-ray this morning shows an endotracheal tube with its tip in the thoracic inlet and an NG tube with its tip below the diaphragm. There are patchy perihilar and basilar opacities consistent with pneumonia. Arterial blood gases this morning demonstrated a pH of 7.38, pCO2 35, PO2 107, and O2 sats 99%. Wound cultures are growing out MRSA. Renal function is deteriorating. Creatinine has increased from 1.2 on admission to 3.9. Urine output is low. OBJECTIVE: Vital Signs: Temperature 98.2 degrees, pulse 90, respirations 15, blood pressure 104/59. CV: Tachycardic, regular, S1, S2. Lungs: Crackles in the right base bilaterally. Abdomen: Soft, nontender with active bowel sounds. Extremities: There is 1+ edema in the low right lower extremity. LABS: Various laboratory studies were obtained. A CBC demonstrated a white count of 38.8, hemoglobin 9.8, hematocrit 27.5, and a platelet count of 545,000. Electrolytes demonstrate the following: Sodium 140, potassium 3.8, chloride 108, BUN 43, creatinine 3.9, glucose 369. ASSESSMENT AND PLAN: 1. Metabolic encephalopathy secondary to infected left total knee with severe sepsis. 2. Acute respiratory failure with suspected aspiration pneumonia requiring mechanical ventilation. 3. Diabetic ketoacidosis. Mr. Vega is quite ill. He is now off the insulin drip. His sugars are ranging from 331 to 422. I will begin NPH insulin 10 units subcutaneously b.i.d. and continue pattern sugars and a Humulin R sliding scale. We will titrate the insulin to get sugars consistently below 200. He has an infected left knee status post surgical debridement in association with severe sepsis and renal failure. His creatinine continues to deteriorate. We will dose the Zosyn for renal dysfunction. I will give him normal saline at 75 mL/h for 1 L. We will recheck a BMP in the morning. At this point, there does not appear to be evidence of hyperkalemia or significant acidosis or volume overload which would necessitate the need for dialysis. We will continue ventilatory support for his underlying respiratory failure and broad-spectrum antibiotics including vancomycin and Zosyn for the underlying pneumonia. cc: Capri Rossi MD
[2018-04-11] MEDS: MYCOSTATIN CREAM TOP SCH ×2 (10:00→21:04)
[2018-04-11] MEDS: HUMULIN N SUBQ SCH ×2 (10:25→20:59)
[2018-04-11 10:55] LABS: ALLEN TEST YES; BE -4.1 mmoll (-3.0-3.0); BLOOD TYPE ARTERIAL; HCO3-(ACT) 21.7 mmoll (20.0-26.0); METHB 2.1 % (0.0-1.5); O2(CT) 10.6 mL/dL (15.0-23.0); O2HB 94.4 % (95.0-99.0); PCO2(98.6) 37 mmHg (35-45); PO2(98.6) 101 mmHg (60-100); SAMPLE BLOOD; SAO2 99.8 % (95.0-100.0); THB 7.8 g/dL (11.5-17.4); pH(98.6) 7.36 (7.35-7.45)
[2018-04-11 10:56] LABS: MODALITY VENTILATOR
--- NOTE | 2018-04-11 14:32 | PULMONOLOGY PROGRESS NOTE ---
DATE: 04/11/2018 SUBJECTIVE: The patient is arousable. He will follow simple commands. His response to commands is slightly delayed. OBJECTIVE: Vital Signs: The patient has been afebrile for the last 24 hours. BP 119/72, heart rate 89, respiratory rate 15, oxygen saturation 100% on 40% FiO2. HEENT: Pupils are equal and reactive. Oropharynx appears clear. Neck: Supple. Chest: Reveals rhonchi bilaterally. Cardiac Examination: S1, S2. Abdomen: Soft, with diminished bowel sounds. Extremities: Reveal surgical dressings and an external fixation device on the left lower extremity. Laboratories: Chest x-ray reveals bilateral infiltrates. White blood count 23.6 thousand, hemoglobin 7.4, platelet count 477,000. Sodium 140, potassium 3.8, chloride 108 , bicarbonate 20, BUN 43, creatinine 3.9, glucose 369, phosphorus 1.4, magnesium 1.6. Arterial blood gas, pH 7.38, pCO2 of 35, PO2 of 107. IMPRESSION: 1. A 53-year-old with methicillin-resistant Staphylococcus aureus bacteremia and transient hypotension. 2. Acute-hypoxemic respiratory failure. 3. Pneumonia. 4. Diabetic ketoacidosis, which is resolved. 5. Hyperglycemia. 6. Acute renal failure. RECOMMENDATIONS: 1. Increase sliding scale insulin to q.4 hours in an attempt to achieve better glucose control. 2. Adjust Zosyn dosing given progression in renal failure. We will consider discontinuing this medication if sputum cultures remain negative. 3. Continue current IV fluid resuscitation. 4. Spontaneous breathing trial now to evaluate for extubation. Time spent in critical care management: 30+ minutes cc: MD Capri Schmidt MD MTDD
[2018-04-11] MEDS: ZOSYN 2.25 GM in NS 50 ML IV SCH ×2 (15:13→20:53)
[2018-04-11] MEDS: MORPHINE IV PRN ×2 (18:25→21:06)
--- NOTE | 2018-04-11 18:43 | PROGRESS NOTE ---
DATE: 04/11/2018 SUBJECTIVE: Mr. Vega is a 53-year-old male who is postoperative day 2 from a removal of his left total knee arthroplasty, irrigation, debridement and Ex-Fix placement. He is currently intubated and sedated and appears comfortable. OBJECTIVE: He is a well-developed, well-nourished male who is intubated and sedated. His left leg dressing is clean, dry, and intact. He has good capillary refill of his left lower extremity. ASSESSMENT: Postoperative day 2 from a left knee removal of total knee arthroplasty, irrigation, debridement and Ex-Fix placement. PLAN: We will continue with current management at this time. We will change his dressing tomorrow. Dictated by REESE Mason for Jasson Yan MD cc: REESE Mason MD M. Neel Roberts, MD
[2018-04-11] MEDS: PROTONIX IV SCH (20:54)
[2018-04-11] MEDS: LOVENOX SUBQ SCH (20:59)
[2018-04-11] MEDS: PATADAY 0.2% OPH SOLUTION BOTH EYES SCH (21:02)
[2018-04-11] MEDS ORDERED: VANCOMYCIN 1,600 MG in NS 250 ML IV SCH (22:00)
[2018-04-12] MEDS: HUMULIN R SUBQ SCH ×6 (01:28→20:11)
[2018-04-12] MEDS: DUONEB (A & A) INH SCH ×6 (02:49→23:44)
[2018-04-12] MEDS: ZOSYN 2.25 GM in NS 50 ML IV SCH ×4 (03:02→20:20)
[2018-04-12] MEDS: ATIVAN IV PRN ×2 (03:02→08:45)
[2018-04-12 04:39] LABS: ALLEN TEST YES; BE -4.4 mmoll (-3.0-3.0); BLOOD TYPE ARTERIAL; HCO3-(ACT) 21.5 mmoll (20.0-26.0); METHB 2.2 % (0.0-1.5); O2(CT) 12.3 mL/dL (15.0-23.0); O2HB 93.7 % (95.0-99.0); PCO2(98.6) 46 mmHg (35-45); PO2(98.6) 102 mmHg (60-100); SAMPLE BLOOD; SAO2 100.2 % (95.0-100.0); THB 9.2 g/dL (11.5-17.4); pH(98.6) 7.29 (7.35-7.45)
[2018-04-12 04:41] LABS: MODALITY VENTILATOR
[2018-04-12 05:37] LABS: BASO# 0.03 X1000 (0.0-0.2); BASO% 0.1 % (0.0-0.8); EOS# 0.14 X1000 (0.0-0.7); EOS% 0.5 % (0.0-10.0); HEMATOCRIT 20.6 % (42.0-52.0); HEMOGLOBIN 6.9 g/dL (14.0-18.0); IMM GRAN# 0.68 X1000 (0.0-0.04); IMM GRAN% 2.3 % (0.0-0.5); LYMPH# 1.54 X1000 (1.2-3.4); LYMPH% 5.2 % (20.5-51.1); MCH 31.7 PG (27-31); MCHC 33.5 g/dL (33-37); MCV 94.5 FL (81-99); MONO# 2.57 X1000 (0.11-0.59); MONO% 8.6 % (1.7-9.3); MPV 10.5 FL (7.4-10.4); NEUT# 24.88 X1000 (1.4-6.5); NEUT% 83.3 % (42.2-75.2); PLT 495 X1000 (130-400); RBC 2.18 XMIL (4.7-6.1); RDW 13.8 % (11.5-14.5); WBC 29.84 X1000 (4.8-10.8)
[2018-04-12] MEDS: MORPHINE IV PRN ×3 (05:47→22:51)
[2018-04-12 06:03] LABS: LYMPHS 6 % (21-51); MONO 7 % (1-9); NRBC 1 % (0-0); SEGS 87 % (42-75)
[2018-04-12 06:04] LABS: ALB/GLOB RATIO 0.6; ALBUMIN 2.3 g/dL (3.5-5.0); CALCIUM 7.4 mg/dL (8.8-10.2); CREATININE 5.6 mg/dL (0.7-1.2); POTASSIUM 3.7 mmol/L (3.5-5.1); TOTAL BILIRUBIN 1.18 mg/dL (0.20-1.00); TOTAL PROTEIN 5.9 g/dL (6.3-8.3)
--- NOTE | 2018-04-12 07:47 | Diag Imaging Result Doc PS360 ---
CHEST-PORTABLE - 04/12/2018 INDICATION: respiratory failure COMPARISON: 04/11/2018 FINDINGS: Support tubes are stable. Stable consolidation/collapse of the left lower lobe. Stable significant infiltrate at the right hilum and right lung base. No new infiltrates. Heart size remains top normal. IMPRESSION: No change from prior. Electronically signed by Neel Ramírez 04/12/2018 7:45 AM
[2018-04-12] MEDS: HUMULIN N SUBQ SCH ×2 (08:30→21:27)
[2018-04-12] MEDS: COMBIGAN OPHTH SOLN BOTH EYES SCH ×2 (08:50→20:16)
[2018-04-12] MEDS: MYCOSTATIN CREAM TOP SCH ×2 (09:00→20:15)
[2018-04-12 11:52] LABS: ALLEN TEST YES; BE -4.4 mmoll (-3.0-3.0); BLOOD TYPE ARTERIAL; HCO3-(ACT) 21.4 mmoll (20.0-26.0); METHB 2.7 % (0.0-1.5); O2(CT) 13.7 mL/dL (15.0-23.0); O2HB 93.5 % (95.0-99.0); PCO2(98.6) 43 mmHg (35-45); PO2(98.6) 135 mmHg (60-100); SAMPLE BLOOD; SAO2 100.2 % (95.0-100.0); THB 10.2 g/dL (11.5-17.4); pH(98.6) 7.31 (7.35-7.45)
[2018-04-12 11:54] LABS: MODALITY VENTILATOR
[2018-04-12] MEDS: NS 1,000 ML IV SCH (12:11)
--- NOTE | 2018-04-12 13:12 | PROGRESS NOTE ---
DATE: 04/11/2018 SUBJECTIVE: Galen Vega is a 53-year-old male who is postoperative day 3 from irrigation and debridement of his left knee with placement of external fixator. He is still on the ventilator but appears to be a responding somewhat. OBJECTIVE: His wound is clean, dry and intact without sign of infection. His blood sugar is improved. His white count is increasing, is now up to 28. His creatinine level is also increasing. IMPRESSION: Left knee septic joint status post irrigation and debridement and removal of his implant and sepsis with acute renal insufficiency. PLAN: We might consider changing him from vancomycin to daptomycin to somewhat protect his kidneys, but he certainly needs to be on something with his white count continuing to increase. As far as his knee is concerned, the wound is clean and intact. There is no sign of any drainage at all, and his pin sites are clean as well. ASSESSMENT: Stable left knee after irrigation with sepsis and acute renal failure. PLAN: We will continue dressing changes for now and monitor him. cc: MD Capri Sarmiento MD
--- NOTE | 2018-04-12 13:20 | PROGRESS NOTE ---
DATE: 04/12/2018 SUBJECTIVE: Mr. Vega has a history of type 2 insulin-dependent diabetes mellitus and was admitted to [facility] with diabetic ketoacidosis. He is now off an insulin drip and his sugars are ranging from 165 to 272 on NPH insulin 10 units subcutaneously b.i.d., plus sliding scale. He was also admitted to [facility] with a metabolic encephalopathy secondary to infected left knee with severe sepsis he seemed a little bit more alert this morning. He squeezed my fingers. He was nonverbal. He did open his eyes to verbal stimuli. He moves extremities grossly. Wound cultures grew out MRSA. Chest x-ray appears to show a dense infiltrate in the left lower lobe as well as the right hilum and right lung base sputum cultures are negative to this point. Wound cultures are growing out MRSA. He is still requiring mechanical ventilation. Arterial blood gases demonstrate a pH of 7.31, pCO2 43, PO2 135 and O2 saturation of 96% on FiO2 of 40%, PEEP of 5, pressure support of 5. Renal function continues to deteriorate. OBJECTIVE: Vitals: Temperature 99.6 degrees, pulse 89, respirations 13, blood pressure 120/67. Cardiovascular: Regular rate and rhythm. Lungs: Diminished breath sounds in the bases bilaterally. Abdomen: Soft, nontender, with active bowel sounds. Extremities: He has trace edema. LABORATORY: A CBC demonstrated a white count of 29,000, hemoglobin 6.9, hematocrit 20.6, and a platelet count of 495,000. Electrolytes demonstrated the following: Sodium 144, potassium 3.7, chloride 110, BUN 58, creatinine 5.6, and glucose 138. ASSESSMENT AND PLAN: 1. Type 2 insulin-dependent diabetes mellitus. He was admitted with diabetic ketoacidosis. We will continue normal saline at 75 mL per hour. We will continue pattern sugars, Humulin R sliding scale and long-acting inpatient NPH insulin. 2. Acute respiratory failure with hypoxia secondary to presumptive pneumonia. We will continue ventilatory support, DuoNeb nebulizer treatments, and broad-spectrum antibiotics. Hopefully, he will continue to improve to the point where we can try a weaning trial. 3. Metabolic encephalopathy secondary to septic left knee with severe sepsis complicated by acute renal failure. We will continue broad-spectrum antibiotics, including Zosyn and vancomycin dosed for renal dysfunction and fluids and continued support in ICU. His blood pressure is stable at this point in time, and I do not think he needs pressors at this time. Given the worsening renal function, we will ask Dr. Cruz's to see him. He is not having any signs of volume overload or hyperkalemia where he would need to be dialyzed at this point in time. 4. Acute blood loss anemia. His blood counts have dropped precipitously. His hemoglobin and hematocrit dropped from 14.4 and 41.9 to 6.9 and 20.6. I will type, cross match and transfuse 2 units of packed red blood cells. We will continue IV pantoprazole. We will check stools for occult blood. Overall, his prognosis is guarded. cc: Capri Rossi MD
[2018-04-12] MEDS ORDERED: AMIDATE ONE (15:42)
[2018-04-12] MEDS ORDERED: QUELICIN ONE (15:43)
[2018-04-12] MEDS ORDERED: QUELICIN IV ONE (15:48)
[2018-04-12] MEDS ORDERED: AMIDATE IV ONE (15:52)
--- NOTE | 2018-04-12 16:05 | Diag Imaging Result Doc PS360 ---
EXAM: CHEST-PORTABLE HISTORY: ETT placement TECHNIQUE: Portable chest single view Findings: There is an endotracheal tube with its tip located approximately 4 cm above the jorge a. This is in good position. A nasogastric tube overlies the esophagus and stomach. There are infiltrates in the left lung base. IMPRESSION: Endotracheal tube in good position. Electronically signed by Hugo Juares 04/12/2018 4:03 PM
--- NOTE | 2018-04-12 16:18 | Diag Imaging Result Doc PS360 ---
EXAM: CT HEAD W/O CONTRAST INDICATION: AMS TECHNIQUE: This exam was performed using automated exposure control, adjustment of mA or kV according to patient size, and/or use of iterative reconstruction technique. COMPARISON: 07/26/2014 FINDINGS: There is no definite acute infarct given the limited sensitivity of CT versus MRI. There is no discrete intracranial mass, mass effect, or intracranial hemorrhage. An NG tube is in place. There are small mucus retention cyst at the floors of the maxillary sinuses. Surrounding soft tissues and bony structures are essentially unremarkable, otherwise. IMPRESSION: No evidence of acute intracranial pathology. Electronically signed by Carlos Bray 04/12/2018 4:16 PM
[2018-04-12 16:21] LABS: BE -5.9 mmoll (-3.0-3.0); BLOOD TYPE ARTERIAL; HCO3-(ACT) 20.3 mmoll (20.0-26.0); O2(CT) 9.6 mL/dL (15.0-23.0); O2HB 90.9 % (95.0-99.0); PCO2(98.6) 48 mmHg (35-45); PO2(98.6) 69 mmHg (60-100); SAMPLE BLOOD; SAO2 99.3 % (95.0-100.0); THB 7.4 g/dL (11.5-17.4); pH(98.6) 7.25 (7.35-7.45)
--- NOTE | 2018-04-12 16:21 | NEPHROLOGY CONSULTATION ---
DATE: 04/12/2018 REASON FOR CONSULTATION: Acute kidney injury. HISTORY OF PRESENT ILLNESS: Mr. Vega is a 53-year-old man with history of diabetes, hypertension, hyperlipidemia, COPD, heart disease, etc. He has been on chronic suppressive antibiotics for an infected left knee prosthesis. He underwent removal of hardware on the and has an external fixator now in place. He developed acute kidney injury on the , and it has been progressively worsening since that time. Urine output has been acceptable. We are asked to see him and assist with his care. He has been receiving Zosyn. He has also been receiving vancomycin. His last vancomycin level was yesterday at 38.4. PAST MEDICAL HISTORY: As above. CURRENT MEDICATIONS: Include Zosyn, vancomycin, albuterol, ipratropium, Combigan, enoxaparin, insulin, lorazepam, magnesium, morphine, sodium chloride, pantoprazole, potassium, propofol. ALLERGIES: Aspirin. SOCIAL HISTORY: Not obtainable, except as listed in the chart. No alcohol or tobacco. FAMILY HISTORY: Not obtainable, except as listed in the chart. REVIEW OF SYSTEMS: Not obtainable, except as listed in the chart. PHYSICAL EXAMINATION: Vital Signs: Blood pressure 120/67, heart rate 79, respirations 13, afebrile. General: A middle-aged man, in no acute distress. Skin: Warm and dry. Eyes: Conjunctivae are pink. Neck: Neck veins are not distended. Heart: Regular. No gallops. Lungs: Equal. No crackles. Abdomen: Soft, nontender. Bowel sounds present. Extremities: No edema, clubbing, or cyanosis. IMPRESSION: Acute kidney injury. Good urine output. Electrolytes and acid-base are in target. No changes are required at this time. His vancomycin is being dosed based on levels by Pharmacy. Zosyn dose as appropriate. He has a high risk for requiring hemodialysis in the next 48 hours. cc: MD Capri Stoner MD
[2018-04-12 16:24] LABS: ALLEN TEST YES
[2018-04-12 16:25] LABS: METHB 3.4 % (0.0-1.5)
[2018-04-12 16:27] LABS: MODALITY COOL AEROSOL
--- NOTE | 2018-04-12 17:07 | Diag Imaging Result Doc PS360 ---
EXAM: US RENAL 2 (RETROPER) COMPLETE INDICATION: decreased renal function TECHNIQUE: COMPARISON: None. FINDINGS: The renal echotexture is increased bilaterally, which is a nonspecific indicator of medical renal disease. No discrete renal mass or hydronephrosis is identified. The right kidney measures 11.5 cm and left kidney measures 11.6 cm in the greatest longitudinal axes. The right renal cortex measures 1.2 cm and the left renal cortex measures 1.3 cm in thickness. There is a Stoner catheter in urinary bladder and the bladder is nondistended. IMPRESSION: Increased renal cortical echotexture, which is a nonspecific indicator of medical renal disease. Electronically signed by Carlos Bray 04/12/2018 5:04 PM
[2018-04-12 17:43] LABS: ALLEN TEST YES; BE -6.9 mmoll (-3.0-3.0); BLOOD TYPE ARTERIAL; HCO3-(ACT) 19.5 mmoll (20.0-26.0); METHB 2.8 % (0.0-1.5); O2(CT) 10.7 mL/dL (15.0-23.0); PCO2(98.6) 41 mmHg (35-45); PO2(98.6) 79 mmHg (60-100); SAMPLE BLOOD; SAO2 99.5 % (95.0-100.0); SRATE 15 BPM; THB 8.1 g/dL (11.5-17.4); TVOL 550 mL; pH(98.6) 7.28 (7.35-7.45)
[2018-04-12 17:44] LABS: MODALITY VENTILATOR
[2018-04-12 17:56] LABS: URINE SOURCE CATH
[2018-04-12 18:09] LABS: UR PROT RANDOM 49.2 mg/dL
[2018-04-12 18:22] LABS: BILIRUBIN URINE NEGATIVE (NEGATIVE); BLOOD URINE MODERATE (NEGATIVE); COLOR YELLOW; GLUCOSE URINE NEGATIVE (NEGATIVE); KETONE URINE NEGATIVE (NEGATIVE); LEUKOCYTES URINE LARGE (NEGATIVE); NITRITE URINE NEGATIVE (NEGATIVE); PH URINE 5.5; PROTEIN URINE 30 mg/dL (NEGATIVE); SP GRAVITY URINE 1.003; TURBIDITY URINE HAZY (CLEAR); UROBILINOGEN URINE NORMAL (NORMAL)
[2018-04-12 18:23] LABS: UR EPITHELIAL CELLS <10 /HPF (<10); URINE BACTERIA NEGATIVE /HPF; URINE RBC 20-40 /HPF (<10); URINE WBC TNTC /HPF (<10)
[2018-04-12 18:27] LABS: URINE YEAST PRESENT
[2018-04-12] MEDS: LOVENOX SUBQ SCH (20:11)
[2018-04-12] MEDS: PATADAY 0.2% OPH SOLUTION BOTH EYES SCH (20:16)
[2018-04-12] MEDS: PROTONIX IV SCH (20:19)
--- NOTE | 2018-04-13 00:01 | PULMONOLOGY PROGRESS NOTE ---
DATE: 04/12/2018 INTERIM HISTORY: Patient was evaluated earlier this morning. The patient had been on minimal ventilatory support for 24 hours. He would respond to commands but with some delay. The patient was extubated around lunchtime. The patient developed increased work of breathing and was not controlling his airway. The patient was reintubated and sent for a CT scan of the head. OBJECTIVE: The patient has been afebrile for the last 24 hours. BP 135/71, heart rate 93, respiratory rate 15, oxygen saturation 100%. His urine output has slightly improved over the last 24 hours.HEENT: Pupils appear reactive. Oropharynx appears clear. Neck: Is supple. Chest: Reveals rhonchi bilaterally. Cardiac: S1, S2 . Abdomen: Soft . Extremities: Reveal left leg with external fixator device in place. LABORATORIES: Renal ultrasound consistent with medical renal disease. CT scan of the head reveals no evidence of acute intracranial pathology. Chest x-ray following reintubation reveals infiltrate at the left base. No new microbiology data. White blood count 29, 000, hemoglobin 6.9, platelet count 495,000. IMPRESSION: 1. Acute hypoxemic respiratory failure. 2. Pneumonia. 3. Methicillin-resistant Staph aureus bacteremia with 4. Acute renal failure. 5. Diabetes with admission to the hospital with ketoacidosis. 6. Hyperglycemia. 7. Altered mental status due to diabetes or sepsis. 8. Negative CT scan of the head. RECOMMENDATIONS: 1. Agree with blood transfusion as ordered. 2. Continue ventilatory support until mental status and physical status improves. 3. Fluid management as outlined by Nephrology for acute renal failure. 4. Consider tube feeds tomorrow if he does have significant improvement. TIME SPENT IN CRITICAL CARE MANAGEMENT: 1-1/2 hours. cc: MD Capri Schmidt MD MTDAbdirashid
[2018-04-13] MEDS: HUMULIN R SUBQ SCH ×6 (00:04→21:10)
[2018-04-13] MEDS: NS 1,000 ML IV SCH ×2 (01:04→15:40)
[2018-04-13] MEDS: DUONEB (A & A) INH SCH ×6 (02:57→23:22)
[2018-04-13] MEDS: ZOSYN 2.25 GM in NS 50 ML IV SCH ×3 (03:54→15:50)
[2018-04-13 04:42] LABS: ALLEN TEST YES; BE -6.8 mmoll (-3.0-3.0); BLOOD TYPE ARTERIAL; HCO3-(ACT) 19.6 mmoll (20.0-26.0); METHB 1.6 % (0.0-1.5); O2HB 95.4 % (95.0-99.0); PCO2(98.6) 34 mmHg (35-45); PO2(98.6) 128 mmHg (60-100); SAMPLE BLOOD; SAO2 99.9 % (95.0-100.0); SRATE 15 BPM; TVOL 550 mL; pH(98.6) 7.34 (7.35-7.45)
[2018-04-13 04:44] LABS: MODALITY VENTILATOR
[2018-04-13 05:34] LABS: HEMATOCRIT 23.2 % (42.0-52.0); HEMOGLOBIN 7.6 g/dL (14.0-18.0); MCHC 32.8 g/dL (33-37); MCV 91.7 FL (81-99); MPV 10.3 FL (7.4-10.4); RBC 2.53 XMIL (4.7-6.1); RDW 15.9 % (11.5-14.5); WBC 31.17 X1000 (4.8-10.8)
[2018-04-13 06:03] LABS: ALB/GLOB RATIO 0.6; ALBUMIN 2.3 g/dL (3.5-5.0); CALCIUM 8.7 mg/dL (8.8-10.2); CREATININE 6.6 mg/dL (0.7-1.2); PHOSPHORUS 2.6 mg/dL (2.7-4.5); POTASSIUM 3.7 mmol/L (3.5-5.1); TOTAL BILIRUBIN 1.31 mg/dL (0.20-1.00); TOTAL PROTEIN 6.1 g/dL (6.3-8.3)
--- NOTE | 2018-04-13 07:38 | Diag Imaging Result Doc PS360 ---
EXAM: CHEST-PORTABLE HISTORY: respiratory failure TECHNIQUE: Portable chest single view COMPARISON: 04/12/2018 FINDINGS: No change in the endotracheal tube or nasogastric tube. There are infiltrates and atelectasis in the left lung base with a small effusion. Findings are slightly more prominent than on the prior study. Right infiltrates are unchanged. Mild scoliosis. IMPRESSION: Mild interval worsening in the left base. Electronically signed by Hugo Juares 04/13/2018 7:36 AM
[2018-04-13] MEDS: HUMULIN N SUBQ SCH ×2 (08:30→21:10)
[2018-04-13] MEDS: MYCOSTATIN CREAM TOP SCH ×2 (08:31→21:09)
[2018-04-13] MEDS: COMBIGAN OPHTH SOLN BOTH EYES SCH ×2 (08:31→21:09)
--- NOTE | 2018-04-13 13:09 | NEPHROLOGY PROGRESS NOTE ---
DATE: 04/13/2018 SUBJECTIVE: He was reintubated last night. He is currently sedated but arousable. OBJECTIVE: Vital signs: Blood pressure 126/70, heart rate 79, respiration 15, afebrile. Intake and output: Intake 2.7 L. Output 1.2 L. PHYSICAL EXAMINATION: General: Sedated as above. No acute distress. Skin: Warm and dry. HEENT: Conjunctivae are pink. Neck: Neck veins are not distended. Cardiovascular: Heart is regular with S4. Respiratory: Lungs are equal. No crackles. Abdomen: Soft, nontender. Bowel sounds present. Extremities: No edema, clubbing, or cyanosis. IMPRESSION: Acute kidney injury. Creatinine and BUN continued to rise. He has a moderate metabolic acidosis. BUN is 73. He does not have any acute indications for renal replacement therapy so we will continue to observe expectantly. Medications are reviewed. I will change his Zosyn dose to every 8 hours. No other changes are required today. cc: MD Capri Stoner MD
[2018-04-13] MEDS: MORPHINE IV PRN ×3 (13:25→21:08)
--- NOTE | 2018-04-13 13:37 | PROGRESS NOTE ---
DATE: 04/13/2018 SUBJECTIVE: Mr. Vega is a 53-year-old male who is postoperative day 4 from a removal of his left total knee arthroplasty, irrigation and debridement and ex-fix placement. He has had some bloody drainage from his left knee after changing his dressing yesterday. He continues to be intubated and sedated and appears comfortable. OBJECTIVE: He is a well developed, well nourished male. He is intubated and sedated. His left knee incision is intact. There is no erythema. There is bloody drainage at the medial aspect of the incision. ASSESSMENT: Postoperative day 4 from a left knee removal total knee arthroplasty, irrigation debridement and external fixator placement. PLAN: We will continue his dressing changes daily and continue his current management at this time. We will continue to monitor the drainage from his knee and if it continues to drain, we can consider taking him back to the operating room later this week and washing it out. Dictated by REESE Mason for Jasson Yan MD cc: REESE Mason MD M. Neel Roberts, MD
[2018-04-13] MEDS: PATADAY 0.2% OPH SOLUTION BOTH EYES SCH (21:09)
[2018-04-13] MEDS: PROTONIX IV SCH (21:09)
[2018-04-13] MEDS: LOVENOX SUBQ SCH (21:10)
--- NOTE | 2018-04-13 22:28 | PULMONOLOGY PROGRESS NOTE ---
DATE: 04/13/2018 SUBJECTIVE: The patient is arousable. He is slow to follow any commands. OBJECTIVE: Vital Signs: The patient has been afebrile over the last 24 hours and has had borderline hypothermia. Blood pressure 123/67, heart rate 87, respiratory rate 12, oxygen saturation 97%. HEENT: Pupils are equal and reactive. Oropharynx is clear but evaluation is limited with endotracheal tube in place. Neck: Supple. Chest: Reveals rhonchi bilaterally with decreased breath sounds at the left base. Abdomen: Soft with positive bowel sounds. Extremities: Left lower extremity with external fixator is unchanged. LABORATORIES: White blood count 31.2, hemoglobin 7.6, platelet count 433,000. Arterial blood gas reveals a pH 7.34, pCO2 of 34, PO2 of 128. IMAGING: Chest x-ray reveals continued infiltrate with slight worsening at the left base with minor infiltrates at the right base. IMPRESSION: The patient is a 53-year-old with 1. Acute hypoxemic respiratory failure requiring reintubation following his surgery and reintubation following a period on mechanical ventilation. 2. Pneumonia. 3. Methicillin-resistant Staphylococcus aureus infection of his left knee with bacteremia. 4. Acute renal failure. 5. Altered mental status. 6. Generalized weakness. 7. Diabetic ketoacidosis on admission with resolution. 8. Anemia, likely related to blood loss and his chronic disease. He remains weak and marginal for extubation. RECOMMENDATION: 1. Add Mucomyst as a mucolytic for thick secretions. 2. Continue current bronchial hygiene regimen. 3. Continue full ventilatory support with daily evaluations for extubation. 4. Continue antibiotics per Dr. Rossi. TIME SPENT: Critical care, 30+ minutes. cc: MD Capri Schmidt MD
[2018-04-14] MEDS: HUMULIN R SUBQ SCH ×6 (00:23→20:07)
[2018-04-14] MEDS: ZOSYN 2.25 GM in NS 50 ML IV SCH ×3 (00:24→15:56)
[2018-04-14] MEDS: DUONEB (A & A) INH SCH ×6 (03:04→22:52)
[2018-04-14] MEDS: MUCOMYST 20% INH SCH ×3 (03:05→19:22)
[2018-04-14] MEDS: NS 1,000 ML IV SCH (03:50)
[2018-04-14] MEDS: MORPHINE IV PRN ×4 (03:50→17:19)
[2018-04-14 05:22] LABS: ALLEN TEST YES; BLOOD TYPE ARTERIAL; HCO3-(ACT) 17.9 mmoll (20.0-26.0); METHB 1.4 % (0.0-1.5); O2(CT) 9.9 mL/dL (15.0-23.0); O2HB 94.4 % (95.0-99.0); PCO2(98.6) 40 mmHg (35-45); PO2(98.6) 93 mmHg (60-100); SAMPLE BLOOD; SAO2 99.2 % (95.0-100.0); SRATE 10 BPM; THB 7.3 g/dL (11.5-17.4); TVOL 550 mL; pH(98.6) 7.25 (7.35-7.45)
[2018-04-14 05:23] LABS: MODALITY VENTILATOR
[2018-04-14 05:41] LABS: HEMATOCRIT 20.7 % (42.0-52.0); HEMOGLOBIN 6.7 g/dL (14.0-18.0); MCH 30.3 PG (27-31); MCHC 32.4 g/dL (33-37); MCV 93.7 FL (81-99); RBC 2.21 XMIL (4.7-6.1); RDW 17.1 % (11.5-14.5); WBC 30.46 X1000 (4.8-10.8)
[2018-04-14 05:43] LABS: ALB/GLOB RATIO 0.6; ALBUMIN 2.2 g/dL (3.5-5.0); CREATININE 7.4 mg/dL (0.7-1.2); TOTAL BILIRUBIN 0.96 mg/dL (0.20-1.00); TOTAL PROTEIN 6.2 g/dL (6.3-8.3)
--- NOTE | 2018-04-14 07:19 | Diag Imaging Result Doc PS360 ---
EXAM: CHEST-PORTABLE 04/14/2018 HISTORY: respiratory failure TECHNIQUE: AP portable at 0501 COMMENT: There is an NG tube with its tip in the distal esophagus. There is an endotracheal tube with its tip at thoracic inlet. Compared to 04/13/2018 there has been some improvement in the opacification of the lung bases. IMPRESSION: Improved bibasilar atelectasis and/or pneumonia. Electronically signed by Jorge A Nunez 04/14/2018 7:16 AM
--- NOTE | 2018-04-14 08:16 | PROGRESS NOTE ---
DATE: 04/14/2018 SUBJECTIVE: Galen Vega is a 53-year-old male with a left septic knee, status post irrigation and debridement, and external fixator placement. OBJECTIVE: He is intubated. He continues to have increasing sepsis with a white count of 30,000 now. He continues to have decreasing kidney function with a creatinine of 7.4. His knee wound has some mild sanguinous drainage, but no sign of infection. His external fixator is in good position. ASSESSMENT: Sepsis with acute renal failure secondary to infected total knee arthroplasty. PLAN: He will continue his current medical care. We have really nothing else to offer at this time orthopedically. I will be available as needed. cc: MD Capri Sarmiento MD
[2018-04-14] MEDS: COMBIGAN OPHTH SOLN BOTH EYES SCH ×2 (08:50→20:08)
[2018-04-14] MEDS: MYCOSTATIN CREAM TOP SCH ×2 (08:50→20:07)
[2018-04-14] MEDS: HUMULIN N SUBQ SCH ×2 (08:56→20:06)
--- NOTE | 2018-04-14 08:57 | NEPHROLOGY PROGRESS NOTE ---
DATE: 04/14/2018 TIME SEEN: 0605. SUBJECTIVE: Mr. Vega is resting quietly in bed. He is ventilator dependent. OBJECTIVE: Vital Signs: His most recent vital signs, the patient's previous temperature 97.2 degrees, blood pressure 127/65, heart rate 86, respirations are 14. He is on 30 % FiO2. His last recorded saturation is 97%. The patient has had 1950 in and 1025 out. He remains 10 L positive. Labs: Sodium 147, potassium 4, chloride is 115, CO2 18, BUN 77, creatinine 7.4 , glucose 107, anion gap of 14, calcium 9, phosphorus 4, albumin is 2.2. White count 30.46, hemoglobin 6.7, hematocrit 20.7, platelet count 455,000. ABGs, pH 7.25, CO2 40, PO2 93, bicarb 17.9, lactate 0.9 with ventilatory support. Physical Examination: General: This is a 53-year-old male resting quietly in bed. He appears chronically ill. No acute distress. Ventilator dependent. HEENT: Normocephalic, atraumatic. Conjunctivae are pale. He has SANDRA. Mucous membranes are dry. Neck: Supple. Trachea midline. No evidence of JVD. Cardiovascular: Regular rate and rhythm. S4 is present. Lungs: Clear to auscultation anteriorly. Equal excursion. Remains on ventilatory support. Abdomen: Soft, nontender. Positive bowel sounds. NG tube remains intact. Genitourinary: Stoner catheter is in place. Adequate urine has been documented. Continues with NG tube to low intermittent suction. Extremities: Have no edema. No clubbing or cyanosis. Neurological: As mentioned above. ASSESSMENT AND PLAN: 1. Acute kidney injury. Patient's BUN and creatinine continue to elevate. His creatinine is at 7.4 today from 6.6. BUN is 77 from 73. The patient has continued with adequate urine output but due to these rising numbers, we will contact the family in regards with initiation of hemodialysis. If in agreement, we will contact the surgeon today with plan to start dialysis in the morning. 2. Electrolytes and acid-base balance. Electrolytes are stable. The patient has stable CO2. CO2 on his arterial blood gases is 40 today. 3. Anemia. The patient has already received 2 units of packed red blood cells during his hospitalization. His hemoglobin is back down to 6.7 after receiving 2 units of packed red blood cells on the . We will defer to the primary care team for transfusion. 4. Leukocytosis. The patient remains septic. This is followed by his surgeon, Dr. Yan. The patient remains on Zosyn and intravenous fluids. This is renally dosed. 5. Respiratory failure. Followed by the primary care and pulmonology. I would like to thank you for allowing us to follow with this patient. Dictated by EUGENE Agee for Donell Cruz MD Face to face encounter, data reviewed, discussed with Diamond Mcgovern on 04/14/18. I agree with the above assessment and plan of care. cc: EUGENE Agee MD M. Neel Roberts, MD MTDD
[2018-04-14] MEDS ORDERED: LASIX IV SCH (09:00)
--- NOTE | 2018-04-14 09:21 | PROGRESS NOTE ---
DATE: 04/14/2018 SUBJECTIVE: Mr. Vega does not seem as awake and appears more sedated this morning. He opens his eyes to verbal stimuli but does not squeeze my finger as he has the past 2 days. He is still requiring mechanical ventilation. OBJECTIVE: ABGs this morning demonstrated a pH of 7.25, pCO2 40, PO2 93 and an O2 saturation of 99.2%. He is on assist control with a rate of 10, FiO2 of 30%, tidal volume 550 and pressure support of 10. His chest x-ray this morning demonstrated an NG tube with its tip in the distal esophagus. There has been some improvement in the infiltrates in the bases. His renal function is continuing to deteriorate. His BUN and creatinine were 77 and 7.4 this morning. He was admitted with diabetic ketoacidosis. He is on NPH insulin with sliding scale. Blood sugars are ranging from 129 to 158. PHYSICAL EXAMINATION: Vital signs: Temperature 98.3 degrees, pulse 90, respiratory rate 12, blood pressure 132/66. Cardiovascular: Regular rate and rhythm. Lungs: Diminished breath sounds in the bases with scattered rhonchi. Abdomen: Soft, nontender, with active bowel sounds. LABORATORY DATA: Various laboratory studies were obtained. Electrolytes demonstrate the following. Sodium 147, potassium 4.0, chloride 115, CO2 18, BUN 77, creatinine 7.4, glucose 107. CBC demonstrated a white count of 30.4, hemoglobin 6.7, hematocrit 20.7 and a platelet count of 455,000. A sputum culture demonstrated yeast. Cultures from the wound demonstrated methicillin- resistant Staph aureus sensitive to vancomycin, tetracycline and sulfa. ASSESSMENT AND PLAN: 1. Type 2 insulin-dependent diabetes mellitus. The patient was admitted with diabetic ketoacidosis. The diabetic ketoacidosis has resolved. We will continue Humulin N 10 units subcutaneously b.i.d. with a Humulin R sliding scale. 2. Metabolic encephalopathy secondary to acute respiratory failure with aspiration pneumonia and septic left knee with severe sepsis complicated by acute renal failure. He does not seem as alert this morning. He is currently on vancomycin for the Staph sepsis and Zosyn for the apparent aspiration pneumonia. Chest x-ray has improved. He still seems too sedated to attempt a weaning trial. We will continue Zosyn nebulizer treatments, and appreciate Dr. Bashir's management of the ventilator. It is concerning that his white count continues to trend upward. He is on broad-spectrum antibiotics including Zosyn and vancomycin. Renal function continues to deteriorate. Given the acidosis, I am afraid that he is at very high risk for requiring hemodialysis. 3. Mild protein calorie malnutrition. He has had little oral intake. His albumin is quite low. We will consult Dietary for recommendations for tube feedings. 4. Acute blood loss anemia. I suspect that he may have anemia due to blood loss as well as to acute renal failure. I am going to type, cross match and transfuse 2 units of packed red blood cells and give him Lasix between units. 5. Condition is guarded. cc: Capri Rossi MD
--- NOTE | 2018-04-14 12:22 | Diag Imaging Result Doc PS360 ---
CHEST-PORTABLE - 04/14/2018 11:48 AM INDICATION: NGT placement check COMPARISON: 5:01 AM FINDINGS: There has been advancement of the nasogastric tube. The nasogastric tube tip is in the distal gastric antrum. Stable endotracheal tube in good position. IMPRESSION: Nasogastric tube advanced and the tip is now in the distal stomach antrum. Electronically signed by Neel Ramírez 04/14/2018 12:19 PM
[2018-04-14] MEDS: SODIUM BICARBONATE 8.4% 50 MEQ in D5W 1,000 ML IV SCH (14:32)
--- NOTE | 2018-04-14 15:14 | PULMONOLOGY PROGRESS NOTE ---
DATE: 04/14/2018 SUBJECTIVE: The patient opens his eyes to voice. He does not follow commands. OBJECTIVE: Vital Signs: The patient has been afebrile over the last 24 hours. Blood pressure 147/74, heart rate 97, respiratory rate 15, oxygen saturation 100%. HEENT: Pupils are equal and reactive. Oropharynx appears clear. Neck: Supple. Chest: Reveals coarse rhonchi bilaterally. Cardiac: S1, S2. Abdomen: Soft with positive bowel sounds. Extremities: Reveal no change in fixer device on the left lower extremity. LABORATORIES: Chest x-ray reveals some re-expansion with decreased atelectasis/infiltrate at the left lower lobe. White blood count remains elevated at 30,000, hemoglobin 6.7, platelet count 455,000. Arterial blood gas reveals a pH 7.27, pCO2 of 40, PO2 of 93. Sodium 147, potassium 4.0, chloride 115, bicarbonate 18, BUN 100, creatinine 7.4. IMPRESSIONS: This is a 53-year-old with: 1. Long-standing history of diabetes mellitus. 2. Acute hypoxemic respiratory failure requiring intubation following surgery and re-intubation following extubation in the ICU. 3. Pneumonia. 4. Methicillin-resistant Staph aureus infection of the left knee with bacteremia. 5. Acute renal failure. 6. Altered mental status. 7. Generalized weakness. 8. Anemia. He is requiring a 2nd unit of blood today. 9. Ketoacidosis with resolution. RECOMMENDATIONS: 1. Continue ventilatory support pending improvement of mental status. The patient did not control his airway after his last extubation. 2. Continue bronchial hygiene. 3. Adjust IV fluids for hypernatremia and his hyperchloremic metabolic acidosis. 4. Continue antibiotics. 5. Agree with initiation of tube feeds. CRITICAL CARE TIME: Time spent in critical care, 30+ minutes. cc: MD Capri Schmidt MD
[2018-04-14] MEDS: LOVENOX SUBQ SCH (20:06)
[2018-04-14] MEDS: PROTONIX IV SCH (20:06)
[2018-04-14] MEDS: PATADAY 0.2% OPH SOLUTION BOTH EYES SCH (20:09)
[2018-04-15] MEDS: ZOSYN 2.25 GM in NS 50 ML IV SCH ×3 (00:33→17:58)
[2018-04-15] MEDS: HUMULIN R SUBQ SCH ×7 (00:33→19:48)
[2018-04-15] MEDS: SODIUM BICARBONATE 8.4% 50 MEQ in D5W 1,000 ML IV SCH (01:15)
[2018-04-15] MEDS: DUONEB (A & A) INH SCH ×6 (03:00→23:30)
[2018-04-15 04:54] LABS: ALLEN TEST YES; BLOOD TYPE ARTERIAL; HCO3-(ACT) 18.6 mmoll (20.0-26.0); METHB 1.6 % (0.0-1.5); O2(CT) 14.1 mL/dL (15.0-23.0); O2HB 94.4 % (95.0-99.0); PCO2(98.6) 46 mmHg (35-45); PO2(98.6) 89 mmHg (60-100); SAMPLE BLOOD; SAO2 98.4 % (95.0-100.0); SRATE 10 BPM; THB 10.5 g/dL (11.5-17.4); TVOL 550 mL; pH(98.6) 7.23 (7.35-7.45)
[2018-04-15 04:55] LABS: MODALITY VENTILATOR
[2018-04-15 05:47] LABS: HEMATOCRIT 24.6 % (42.0-52.0); HEMOGLOBIN 7.9 g/dL (14.0-18.0); MCH 29.4 PG (27-31); MCHC 32.1 g/dL (33-37); MCV 91.4 FL (81-99); MPV 10.7 FL (7.4-10.4); RBC 2.69 XMIL (4.7-6.1); RDW 17.7 % (11.5-14.5); WBC 27.26 X1000 (4.8-10.8)
[2018-04-15 06:31] LABS: ALB/GLOB RATIO 0.5; ALBUMIN 2.2 g/dL (3.5-5.0); CALCIUM 9.3 mg/dL (8.8-10.2); CREATININE 8.4 mg/dL (0.7-1.2); PHOSPHORUS 4.3 mg/dL (2.7-4.5); POTASSIUM 4.5 mmol/L (3.5-5.1); TOTAL BILIRUBIN 0.71 mg/dL (0.20-1.00)
--- NOTE | 2018-04-15 07:24 | Diag Imaging Result Doc PS360 ---
CHEST-PORTABLE - 04/15/2018 INDICATION: respiratory failure COMPARISON: 04/14/2018 FINDINGS: Support tubes are stable. Stable hazy bibasilar infiltrates. No new infiltrates. No pneumothorax or large pleural effusion. Heart size remains normal. IMPRESSION: No change from prior. Electronically signed by Neel Ramírez 04/15/2018 7:22 AM
[2018-04-15] MEDS: MUCOMYST 20% INH SCH ×2 (08:18→19:48)
[2018-04-15] MEDS: HUMULIN N SUBQ SCH ×3 (08:35→20:46)
[2018-04-15] MEDS: COMBIGAN OPHTH SOLN BOTH EYES SCH ×3 (08:43→20:31)
[2018-04-15] MEDS: MYCOSTATIN CREAM TOP SCH ×3 (08:43→20:47)
--- NOTE | 2018-04-15 08:50 | PROGRESS NOTE ---
DATE: 04/15/2018 SUBJECTIVE: Mr. Vega is a 53-year-old male, who is postoperative day 6 from a removal of his left total knee arthroplasty, irrigation, debridement and Ex Fix placement. He continues to be intubated and sedated and appears to be resting comfortably. OBJECTIVE: General: He is a well-developed male, who is intubated and sedated. Appears comfortable. Extremities: His left knee incision is intact. There continues to be some bloody drainage at the medial aspect of the incision. He has 2+ pedal pulse on the left lower extremity. ASSESSMENT: Stable postoperative day 6 from a left knee removal, total knee arthroplasty, irrigation, debridement and ex Fix placement. PLAN: We will continue current management and continue his dressing changes daily. It appears that drainage from his wound has improved and is slowing down, but will continue to monitor his left knee. Dictated by REESE Mason for Jasson Yan MD cc: REESE Mason MD M. Neel Roberts, MD
[2018-04-15] MEDS ORDERED: HEPARIN IV PRN (08:58)
[2018-04-15] MEDS ORDERED: NS 2,000 ML MISC PRN (08:58)
[2018-04-15] MEDS ORDERED: TIGHT: 0.2 ML/HR FOR DIALYSIS MISC PRN (08:58)
[2018-04-15] MEDS ORDERED: VANCOMYCIN 1 GM/NS 1 GM/250 ML IVPB IV SCH (09:45)
[2018-04-15] MEDS: MIRALAX PO SCH ×2 (13:34→17:44)
--- NOTE | 2018-04-15 13:50 | PROGRESS NOTE ---
DATE: 04/15/2018 SUBJECTIVE: Mr. Galen Vega was admitted to [facility] with a metabolic encephalopathy. He seems more alert this morning. He opens his eyes to verbal stimuli and follows some simple commands. He squeezed my fingers, and pushed his right foot against my hand. He is continuing to require mechanical ventilation. Arterial blood gases this morning demonstrated a pH of 7.23, pCO2 46, PO2 89, and an O2 saturation of 98%. He is on assist control with a spontaneous rate of 10, FiO2 30%, tidal volume 550, and PEEP of 5. His chest x-ray this morning demonstrated stable bibasilar infiltrates. No pneumothorax or effusion were noted. Because of the underlying acidosis, he is on D5 W. Blood sugars are trending upward. Blood sugars are ranging from 252 to 355. He is tolerating tube feedings at 40 mL per hour with minimal if any residuals. OBJECTIVE: Temperature 98.6 degrees, pulse 79, respiratory rate 12, and BP 132/66. CV: Regular rate and rhythm. Lungs: Crackles in the bases bilaterally. Abdomen: Soft, nontender with active bowel sounds. No hepatosplenomegaly. No abdominal bruits. Extremities: Trace ankle edema. LABORATORY: Various laboratory studies were obtained[place] [address], hemoglobin 7.9, hematocrit 24.6, and a platelet count of 397,000. Electrolytes demonstrate the following sodium 143, potassium 4.5, chloride 110, BUN 96, creatinine 8.4 and glucose 281. ASSESSMENT AND PLAN: 1. Metabolic encephalopathy secondary to a septic left knee associated with severe sepsis (cultures grew out MRSA). 2. Acute respiratory failure with hypoxia requiring intubation following surgery and reintubation following extubation in ICU secondary to aspiration pneumonia. 3. Acute renal failure. 4. Diabetic ketoacidosis resolved. 5. Poorly controlled type 2 insulin-dependent diabetes mellitus. 6. Mr. Vega seems more alert this morning. He responded to verbal stimuli and follows some simple commands. He is still not alert enough to safely try a weaning trial at this point in time. We will continue gentle ventilatory support and as well as DuoNeb nebulizer treatments, and IV Zosyn for the underlying pneumonia. Chest x-ray shows no worsening of the infiltrates. His white count has dropped from 31,000 to 27,000. We will continue broad-spectrum antibiotics including Zosyn and vancomycin. Renal function continues to deteriorate. I spoke to Dr. Cruz this morning. I have spoken to his brother Carlos Vega and his mother Mrs. Benny Vega who understand the need for acute dialysis. They have given permission to place vascular access and to proceed with dialysis. I will consult Dr. No to obtain vascular access. He did have acute blood loss anemia, and I gave him 2 units of blood yesterday. Blood counts look better this morning. We will continue to follow blood counts and transfuse as indicated. I will increase the NPH insulin to 15 units subcutaneously b.i.d. and continue Humulin R sliding scale. We will continue tube feedings for generalized nutritional support. cc: Capri Rossi MD
[2018-04-15] MEDS ORDERED: MIRALAX PO SCH (15:00)
--- NOTE | 2018-04-15 15:33 | OPERATIVE NOTE ---
PROCEDURE DATE: 04/15/2018 PREOPERATIVE DIAGNOSIS: Acute renal failure requiring hemodialysis. POSTOPERATIVE DIAGNOSIS: Acute renal failure requiring hemodialysis. PROCEDURE: Ultrasound-guided right common femoral vein Vas-Cath placement. SURGEON: David No MD. MOVE COORDINATOR: None. ANESTHESIA: Local administered by the surgeon. INTRAOPERATIVE FINDINGS: Ultrasound showed good caliber right common femoral vein. BRIEF HISTORY: A 53-year-old gentleman who initially came in on 04/08/2018 with metabolic encephalopathy and presumed septic left knee. He subsequently had a decline in his kidney function and needed dialysis. Consent was obtained from the family. DESCRIPTION OF PROCEDURE: After informed consent was obtained, patient remained in his ICU bed. The right groin was prepped and draped in sterile fashion. After a formal time-out, we used ultrasound to identify the right common femoral vein. We used a local anesthetic to anesthetize the skin. I directed a needle to the area that would cannulate the common femoral vein pass the wire. I then serially dilated up the tract using the Seldinger technique to place the catheter in the common femoral vein. All ports aspirated and flushed easily. We secured it in the standard fashion, and placed a sterile dressing. The patient tolerated the procedure well and remained in the ICU. cc: MD Capri Velasquez MD
[2018-04-15] MEDS ORDERED: VANCOMYCIN 1 GM/NS 1 GM/250 ML IVPB IV ONE (17:00)
--- NOTE | 2018-04-15 18:12 | NEPHROLOGY PROGRESS NOTE ---
DATE: 04/15/2018 SUBJECTIVE: Sedated on the ventilator. OBJECTIVE: Blood pressure 132/66, heart rate 79, respirations 12, afebrile. Generally unresponsive, sedated, intubated. Skin is warm and dry. Conjunctivae are pink. Oropharynx is dry. Neck veins are distended. Heart is regular, with a gallop. Lungs are equal, with crackles. Abdomen soft, nontender. Bowel sounds present. Extremities with 1+ edema. No clubbing or cyanosis. IMPRESSION AND PLAN: Acute kidney injury. His urine output is acceptable at 1100 mL, but BUN and creatinine continue to rise, 96 and 8.4, respectively. I spoke with Dr. No, who placed a Vas- Cath today and he will have his first dialysis treatment, 3.5 hours using a 2 potassium bath and a goal of 2 L to 3 L ultrafiltration. cc: MD Capri Stoner MD
[2018-04-15] MEDS: PROTONIX IV SCH ×2 (19:47→20:47)
[2018-04-15] MEDS: LOVENOX SUBQ SCH ×2 (19:47→20:46)
[2018-04-15] MEDS: PATADAY 0.2% OPH SOLUTION BOTH EYES SCH (20:32)
[2018-04-16] MEDS: HUMULIN R SUBQ SCH ×7 (00:07→23:29)
[2018-04-16] MEDS: ZOSYN 2.25 GM in NS 50 ML IV SCH ×3 (00:07→15:52)
[2018-04-16] MEDS: DUONEB (A & A) INH SCH ×6 (03:29→23:02)
[2018-04-16 04:32] LABS: ALLEN TEST YES; BE 1.9 mmoll (-3.0-3.0); BLOOD TYPE ARTERIAL; HCO3-(ACT) 26.4 mmoll (20.0-26.0); O2(CT) 10.8 mL/dL (15.0-23.0); O2HB 94.2 % (95.0-99.0); PCO2(98.6) 41 mmHg (35-45); PO2(98.6) 69 mmHg (60-100); SAMPLE BLOOD; SAO2 98.2 % (95.0-100.0); SRATE 10 BPM; THB 8.1 g/dL (11.5-17.4); TVOL 550 mL; pH(98.6) 7.42 (7.35-7.45)
[2018-04-16 04:34] LABS: MODALITY VENTILATOR
[2018-04-16 06:28] LABS: BASO# 0.07 X1000 (0.0-0.2); BASO% 0.3 % (0.0-0.8); EOS# 0.12 X1000 (0.0-0.7); EOS% 0.5 % (0.0-10.0); HEMATOCRIT 24.1 % (42.0-52.0); HEMOGLOBIN 7.7 g/dL (14.0-18.0); IMM GRAN# 1.13 X1000 (0.0-0.04); IMM GRAN% 5.1 % (0.0-0.5); LYMPH# 1.57 X1000 (1.2-3.4); LYMPH% 7.1 % (20.5-51.1); MCH 28.3 PG (27-31); MCV 88.6 FL (81-99); MONO# 3.86 X1000 (0.11-0.59); MONO% 17.3 % (1.7-9.3); MPV 10.3 FL (7.4-10.4); NEUT% 69.7 % (42.2-75.2); PLT 388 X1000 (130-400); RBC 2.72 XMIL (4.7-6.1); RDW 17.2 % (11.5-14.5); WBC 22.25 X1000 (4.8-10.8)
[2018-04-16] MEDS ORDERED: NS 2,000 ML MISC PRN (06:50)
[2018-04-16 06:58] LABS: BANDS 4 % (0-1); LYMPHS 8 % (21-51); MONO 4 % (1-9); NRBC 1 % (0-0); SEGS 82 % (42-75)
[2018-04-16] MEDS: MUCOMYST 20% INH SCH ×2 (07:49→19:30)
[2018-04-16 07:59] LABS: ALB/GLOB RATIO 0.6; ALBUMIN 2.5 g/dL (3.5-5.0); CREATININE 5.5 mg/dL (0.7-1.2); PHOSPHORUS 3.1 mg/dL (2.7-4.5); POTASSIUM 3.6 mmol/L (3.5-5.1); TOTAL BILIRUBIN 0.57 mg/dL (0.20-1.00); TOTAL PROTEIN 6.6 g/dL (6.3-8.3)
--- NOTE | 2018-04-16 08:11 | Diag Imaging Result Doc PS360 ---
EXAM: CHEST-PORTABLE INDICATION: respiratory failure TECHNIQUE: One view COMPARISON: 04/15/2018 FINDINGS: Support tubes and lines are in stable positions. Mild bibasilar infiltrates most compatible with pulmonary edema are essentially stable. There is suggestion of pulmonary venous congestion that is stable. No new consolidation is identified. Cardiac silhouette is stable. IMPRESSION: Stable chest. Electronically signed by Carlos Bray 04/16/2018 8:09 AM
[2018-04-16] MEDS: MYCOSTATIN CREAM TOP SCH ×2 (08:26→20:05)
[2018-04-16] MEDS: HUMULIN N SUBQ SCH ×2 (08:26→20:04)
[2018-04-16] MEDS: COMBIGAN OPHTH SOLN BOTH EYES SCH ×2 (08:26→20:04)
[2018-04-16] MEDS: MIRALAX PO SCH ×3 (08:29→16:00)
--- NOTE | 2018-04-16 08:47 | PROGRESS NOTE ---
DATE: 04/16/2018 Mr. Vega seems more alert this morning. He opens his eyes to verbal stimuli. He follows simple commands. He is still requiring ventilatory support. ABGs demonstrated a pH of 7.42, PCO2 41, PO2 69 and O2 sat of 98%. His chest x-ray this morning demonstrated persistent mild basilar infiltrates, but largely unchanged. He is receiving his second dialysis treatment this morning. His creatinine was 5.5 this morning. Blood sugars are still fluctuating but are trending down. Blood sugars are ranging from 172 to 254. PHYSICAL EXAMINATION: VITAL SIGNS: Temperature 98.2 degrees, pulse 88, respirations 19. CV: Regular rate and rhythm. LUNGS: Faint crackles in the bases bilaterally. ABDOMEN: Soft, nontender with active bowel sounds. A CBC demonstrated a white count of 22.2, hemoglobin 7.7, hematocrit 24.1 and a platelet count of 388,000. Electrolytes demonstrated the following: Sodium 143, potassium 3.6, BUN 54, creatinine 5.5, glucose 291. ASSESSMENT AND PLAN: 1. Metabolic encephalopathy secondary to septic left knee with severe sepsis. 2. Acute renal failure on dialysis. 3. Acute respiratory failure with hypoxia secondary to aspiration pneumonia. 4. Poorly controlled type 2 insulin-dependent diabetes mellitus. DKA has resolved. He seems more awake. White count is trending down. We will continue Zosyn and vancomycin. Renal function is improving with dialysis. I am hopeful that he will not need long-term dialysis and his renal function will recover. Chest x-ray is improving. We will continue Zosyn, DuoNeb nebulizer treatments and I am hoping that Dr. Bashir will be able to continue to wean him down off ventilatory support as he becomes more and more alert. Blood sugars are still too high. I will increase NPH insulin to 20 units subcu b.i.d. He is tolerating Nepro tube feedings without significant residuals. cc: Capri Rossi MD
[2018-04-16 09:28] LABS: CALCIUM 9.3 mg/dL (8.8-10.2); POTASSIUM 3.9 mmol/L (3.5-5.1)
[2018-04-16 13:11] LABS: HEPATITIS PROFILE ACUTE SEE COMMENTS
--- NOTE | 2018-04-16 17:24 | NEPHROLOGY PROGRESS NOTE ---
DATE: 04/16/2018 SUBJECTIVE: He is intubated. Eyes are open and does respond. OBJECTIVE: Blood pressure 105/80, heart rate 97, respiration 19, afebrile. Intake 2.5 L. Output 3.4 L.General: No acute distress. Skin: Warm and dry. Neck: Neck veins are not appreciated. Cardiovascular: Heart is regular. Lungs: Equal. Abdomen: Soft. Bowel sounds present. Extremities: 1+ edema. No clubbing or cyanosis. IMPRESSION: Acute kidney injury. SLED today, goal of 6 L ultrafiltration. Four potassium bath. Twenty-seven bicarbonate. cc: MD Capri Stoner MD
[2018-04-16] MEDS: PROTONIX IV SCH (20:03)
[2018-04-16] MEDS: LOVENOX SUBQ SCH (20:03)
[2018-04-16] MEDS: MORPHINE IV PRN (20:03)
[2018-04-16] MEDS: PATADAY 0.2% OPH SOLUTION BOTH EYES SCH (20:05)
[2018-04-17] MEDS: ZOSYN 2.25 GM in NS 50 ML IV SCH ×3 (00:41→16:35)
[2018-04-17] MEDS: MORPHINE IV PRN (00:41)
[2018-04-17] MEDS: DUONEB (A & A) INH SCH ×6 (03:17→23:32)
[2018-04-17] MEDS: HUMULIN R SUBQ SCH ×6 (03:59→23:24)
[2018-04-17 04:28] LABS: ALLEN TEST YES; BE -2.5 mmoll (-3.0-3.0); BLOOD TYPE ARTERIAL; HCO3-(ACT) 22.9 mmoll (20.0-26.0); METHB 1.2 % (0.0-1.5); O2HB 94.2 % (95.0-99.0); PCO2(98.6) 43 mmHg (35-45); PO2(98.6) 78 mmHg (60-100); SAMPLE BLOOD; SRATE 10 BPM; TVOL 550 mL; pH(98.6) 7.34 (7.35-7.45)
[2018-04-17 04:29] LABS: MODALITY VENTILATOR
[2018-04-17 06:07] LABS: HEMATOCRIT 26.4 % (42.0-52.0); HEMOGLOBIN 8.5 g/dL (14.0-18.0); MCH 28.6 PG (27-31); MCHC 32.2 g/dL (33-37); MCV 88.9 FL (81-99); MPV 10.2 FL (7.4-10.4); RBC 2.97 XMIL (4.7-6.1); RDW 17.5 % (11.5-14.5); WBC 25.57 X1000 (4.8-10.8)
[2018-04-17 06:27] LABS: ALB/GLOB RATIO 0.6; ALBUMIN 2.8 g/dL (3.5-5.0); CALCIUM 9.6 mg/dL (8.8-10.2); CREATININE 3.6 mg/dL (0.7-1.2); PHOSPHORUS 3.8 mg/dL (2.7-4.5); TOTAL BILIRUBIN 0.56 mg/dL (0.20-1.00); TOTAL PROTEIN 7.5 g/dL (6.3-8.3)
--- NOTE | 2018-04-17 07:42 | Diag Imaging Result Doc PS360 ---
EXAM: CHEST-PORTABLE INDICATION: respiratory failure TECHNIQUE: One view COMPARISON: 04/16/2018 FINDINGS: The NG tube is in stable position. The ET tube is stable. Mild pulmonary edema and pulmonary venous congestion is essentially stable. No new consolidation is identified. Cardiac silhouette is stable. IMPRESSION: Stable chest. Electronically signed by Carlos Bray 04/17/2018 7:40 AM
[2018-04-17] MEDS: MUCOMYST 20% INH SCH ×2 (08:01→19:04)
[2018-04-17] MEDS: HUMULIN N SUBQ SCH ×2 (08:26→21:44)
[2018-04-17] MEDS: MIRALAX PO SCH ×3 (08:28→16:48)
[2018-04-17] MEDS: COMBIGAN OPHTH SOLN BOTH EYES SCH ×2 (08:28→21:53)
[2018-04-17] MEDS: MYCOSTATIN CREAM TOP SCH ×2 (08:28→21:52)
--- NOTE | 2018-04-17 09:38 | PROGRESS NOTE ---
DATE: 04/17/2018 SUBJECTIVE: Mr. Vega is lying in bed this morning. He is on the ventilator. OBJECTIVE: Left lower extremity exam: Dressing is clean, dry, and intact. The last time it was changed was 04/15/2018. External fixator is in good position. General: When I spoke to Mr. Vega, he did open his eyes and look at me, and actually did follow commands to squeeze my hand, and he squeezed it immediately too. ASSESSMENT: Status post left knee irrigation, debridement, and external fixation across the knee. PLAN: The ICU team will change the dressing today for Mr. Vega. He is still receiving a lot of medical management. He does seem to be getting a little better as far as waking up. He is off all sedation at this point, and does appear to be more alert than he has been. From an orthopedic standpoint, we will continue to follow, and he will still need dressing changes. Dania will be back probably tomorrow to evaluate the wound. cc: MD Capri Kim MD
--- NOTE | 2018-04-17 10:20 | PROGRESS NOTE ---
DATE: 04/17/2018 SUBJECTIVE: Mr. Vega has a history of type 2 insulin-dependent diabetes mellitus. His blood sugars are still fluctuating. His sugars are ranging from 200 to 312. He is tolerating tube feedings with no residuals. He seems more awake this morning. He followed simple commands and opened his eyes to verbal stimuli. He is maintaining O2 saturations of 98% to 100%. He is still requiring ventilator support with a spontaneous rate of 10, FiO2 of 30%, tidal volume 500, and PEEP of 5. Chest x-rays continue to improve. Renal function is improving with dialysis. OUTPUT: He had urine output of approximately 600 mL yesterday. OBJECTIVE: Vital signs: He is afebrile pulse 91, respirations 16, BP 131/76. Cardiovascular: Regular rate and rhythm. Lungs: Faint crackles in the bases bilaterally. Abdomen: Soft, nontender, with active bowel sounds. ASSESSMENT AND PLAN: 1. Acute respiratory failure with hypoxia secondary to aspiration pneumonia. Clinically, he continues to improve slowly. We will continue ventilatory support, DuoNeb nebulizer treatments, and broad-spectrum antibiotics. I am hoping that he will continue to become more and more alert where we can try a weaning trial. 2. Metabolic encephalopathy secondary to septic left knee with severe sepsis, complicated by acute renal failure. Wound cultures grew out MRSA. We will continue vancomycin dosed with dialysis. We will continue fluid resuscitation. We will continue dialysis. Renal function has improved to a creatinine of 3.6. 3. Type 2 insulin-dependent diabetes mellitus. Blood sugars are too high. I would like to see his sugars consistently less than 200. I am going to increase the NPH to 25 units b.i.d. cc: Capri Rossi MD
[2018-04-17] MEDS: LOVENOX SUBQ SCH (21:46)
[2018-04-17] MEDS: PROTONIX IV SCH (21:47)
[2018-04-17] MEDS: PATADAY 0.2% OPH SOLUTION BOTH EYES SCH (21:54)
[2018-04-17 22:55] LABS: ALLEN TEST YES; BE -4.2 mmoll (-3.0-3.0); BLOOD TYPE ARTERIAL; HCO3-(ACT) 21.6 mmoll (20.0-26.0); METHB 1.9 % (0.0-1.5); MODALITY BI PAP; O2(CT) 11.6 mL/dL (15.0-23.0); O2HB 94.7 % (95.0-99.0); PCO2(98.6) 42 mmHg (35-45); PO2(98.6) 90 mmHg (60-100); SAMPLE BLOOD; SAO2 98.7 % (95.0-100.0); THB 8.6 g/dL (11.5-17.4); pH(98.6) 7.32 (7.35-7.45)
[2018-04-18] MEDS: HUMULIN R SUBQ SCH ×6 (02:09→22:39)
[2018-04-18] MEDS: ZOSYN 2.25 GM in NS 50 ML IV SCH ×3 (02:10→16:37)
[2018-04-18] MEDS: DUONEB (A & A) INH SCH ×6 (03:44→23:03)
[2018-04-18 04:50] LABS: ALLEN TEST YES; BE -5.5 mmoll (-3.0-3.0); BLOOD TYPE ARTERIAL; HCO3-(ACT) 20.6 mmoll (20.0-26.0); METHB 1.3 % (0.0-1.5); O2(CT) 12.3 mL/dL (15.0-23.0); O2HB 96.5 % (95.0-99.0); PCO2(98.6) 33 mmHg (35-45); PO2(98.6) 185 mmHg (60-100); SAMPLE BLOOD; SAO2 100.3 % (95.0-100.0); THB 8.7 g/dL (11.5-17.4); pH(98.6) 7.37 (7.35-7.45)
[2018-04-18 04:53] LABS: MODALITY BI PAP
[2018-04-18] MEDS ORDERED: NS 2,000 ML MISC PRN (05:48)
[2018-04-18 06:19] LABS: MCH 28.6 PG (27-31); MCV 89.3 FL (81-99); MPV 10.7 FL (7.4-10.4); RBC 2.8 XMIL (4.7-6.1); RDW 17.9 % (11.5-14.5); WBC 22.13 X1000 (4.8-10.8)
--- NOTE | 2018-04-18 07:07 | Diag Imaging Result Doc PS360 ---
EXAM: CHEST-PORTABLE 04/18/2018 HISTORY: respiratory failure TECHNIQUE: AP portable at 0529 COMMENT: Compared to 04/17/2018 the endotracheal tube is been removed. The NG tube remains in place. There is some improvement in atelectasis in the left lower lobe. No new abnormalities are present. IMPRESSION: Improved left lower lobe atelectasis versus pneumonia. Electronically signed by Jorge A Nunez 04/18/2018 7:05 AM
[2018-04-18 07:23] LABS: ALB/GLOB RATIO 0.6; ALBUMIN 2.7 g/dL (3.5-5.0); CALCIUM 9.7 mg/dL (8.8-10.2); CREATININE 5.9 mg/dL (0.7-1.2); POTASSIUM 4.5 mmol/L (3.5-5.1); TOTAL BILIRUBIN 0.47 mg/dL (0.20-1.00); TOTAL PROTEIN 7.3 g/dL (6.3-8.3)
[2018-04-18] MEDS: MUCOMYST 20% INH SCH ×2 (07:38→19:58)
[2018-04-18] MEDS ORDERED: [UNRECOGNIZED DRUG - OTHER] MISC ONE (08:45)
--- NOTE | 2018-04-18 09:15 | NEPHROLOGY PROGRESS NOTE ---
DATE: 04/18/2018 SUBJECTIVE: He self-extubated. He is awake, alert, but he did not interact with me. OBJECTIVE: Vital Signs: Blood pressure 176/87, heart rate 97, respirations 15, afebrile. General: No acute distress. Skin: Warm and dry. Eyes: Conjunctivae are pink. Neck: Neck veins are not distended. Trachea is midline. Heart: Regular. No gallops. Lungs: Equal. No crackles or wheezes. Abdomen: Soft, nontender. Bowel sounds present. Extremities: With 1+ edema. No clubbing or cyanosis. INPUT AND OUTPUT: Intake 1.3 L. Output 350 mL. IMPRESSION: Acute kidney injury. His urine output remains low at 350 mL. Labs are pending from this morning. We will plan for SLED today with a goal of 6 L ultrafiltration using a 4K bath. After today, he can likely transition to intermittent hemodialysis until he recovers renal function. cc: MD Capri Stoner MD
[2018-04-18] MEDS: MIRALAX PO SCH ×3 (09:59→16:37)
[2018-04-18] MEDS: COMBIGAN OPHTH SOLN BOTH EYES SCH ×2 (09:59→22:39)
[2018-04-18] MEDS: MYCOSTATIN CREAM TOP SCH ×2 (10:00→22:39)
[2018-04-18] MEDS: HUMULIN N SUBQ SCH ×2 (10:00→22:38)
[2018-04-18] MEDS ORDERED: HEPARIN IV PRN (10:32)
[2018-04-18] MEDS ORDERED: VASELINE TOP PRN ×2 (11:59→14:15)
--- NOTE | 2018-04-18 14:49 | PROGRESS NOTE ---
DATE: 04/18/2018 SUBJECTIVE: Mr. Vega is a 53-year-old male who is postoperative from a left knee irrigation debridement and ex fix placement. He was extubated last night and he is currently doing well. He is currently undergoing dialysis. OBJECTIVE: He is a well developed, well nourished male. He is alert and in no acute distress. His left knee incision is clean, dry, and intact. He has a 1+ distal pedal pulse on the left side. His left leg is grossly neurovascularly intact. ASSESSMENT: Stable postoperative left knee. PLAN: Medically, he appears to be doing much better. We will continue his current management at this time with daily dressing changes on his left knee. We will continue to monitor him. Dictated by REESE Mason for Jasson Yan MD cc: REESE Mason MD M. Neel Roberts, MD
[2018-04-18] MEDS: ATIVAN IV PRN (15:53)
--- NOTE | 2018-04-18 17:17 | PROGRESS NOTE ---
DATE: 04/18/2018 SUBJECTIVE: Mr. Vega was much more awake and easily arousable. He answered questions appropriately. He follows simple commands. He was extubated last night. He is maintaining O2 saturations of 97% to 100% on supplemental O2. His chest x-ray demonstrated improved left lower lobe pneumonia. He underwent dialysis today. His BUN and creatinine have dropped to 56 and 5.9. Sugars are still in the mid 200s on Nupro. OBJECTIVE: Vital signs: He is afebrile, pulse 106, respiratory rate 16, BP 107/69. Cardiovascular: Tachycardic, regular S1, S2. Lungs: Crackles in the bases bilaterally. Abdomen: Soft, nontender, with active bowel sounds. ASSESSMENT AND PLAN: 1. Acute respiratory failure with hypoxia, resolved, secondary to aspiration pneumonia. We will continue supplemental O2, DuoNeb nebulizer treatments, and IV Zosyn and vancomycin. 2. Metabolic encephalopathy secondary to septic left knee with severe sepsis. Wound cultures grew out MRSA. We will continue vancomycin dosed with dialysis. Renal function is improving. White count is down to 22,000. He is more awake and alert. If his level of alertness continues to improve, we will try to feed him and wean him off of tube feedings. cc: Capri Rossi MD
[2018-04-18] MEDS ORDERED: VANCOMYCIN 1 GM/NS 1 GM/250 ML IVPB IV ONE (18:00)
--- NOTE | 2018-04-18 19:13 | PULMONOLOGY PROGRESS NOTE ---
DATE: 04/18/2018 INTERIM HISTORY: The patient had an unplanned extubation last evening. He could not be easily reintubated and was placed on BiPAP. He currently opens his eyes to voice. He has no increased work of breathing. OBJECTIVE: Vital Signs: The patient has been afebrile for the last 24 hours. Blood pressure 129/84, respiratory rate 15, heart rate 96. Oxygen saturation 100%. HEENT: Pupils are equal and reactive. Oropharynx appears clear. Neck: Supple. Chest: Reveals shallow breath sounds bilaterally. Cardiac exam: S1, S2. Abdomen: Soft with positive bowel sounds. Extremities: Without edema. Surgical dressings are in place on the left leg. LABORATORIES: Chest x-ray reveals decreased atelectasis at the left base. White blood count 22,000, hemoglobin 8.0, platelet count 371,000. Sodium 138, potassium 4.5, chloride 102, bicarbonate 17, BUN 56, creatinine 5.9, glucose 244. Arterial blood gas on BiPAP, pH 7.37, pCO2 of 33, pO2 of 185. IMPRESSION: A 53-year-old with: 1. Acute hypoxemic respiratory failure. 2. Pneumonia. 3. Methicillin-resistant Staph aureus infection of the knee with bacteremia. 4. Acute renal failure. 5. Altered mental status. DISCUSSION: The patient's mental status remains an issue, but he is more arousable today. He has undergone an unplanned extubation, but is doing well on BiPAP. He currently is on hemodialysis. RECOMMENDATION: 1. Attempt to cycle the patient between BiPAP and supplemental oxygen as tolerated. 2. Continue hemodialysis for acute renal failure. 3. Continue antibiotics for MRSA infection of the left knee and bacteremia. cc: MD Capri Schmidt MD
[2018-04-18] MEDS: PROTONIX IV SCH (22:37)
[2018-04-18] MEDS: LOVENOX SUBQ SCH (22:37)
[2018-04-18] MEDS: PATADAY 0.2% OPH SOLUTION BOTH EYES SCH (22:40)
[2018-04-19] MEDS ORDERED: HUMULIN R SUBQ ONE (00:55)
[2018-04-19] MEDS: ZOSYN 2.25 GM in NS 50 ML IV SCH ×2 (01:11→08:09)
[2018-04-19] MEDS: HUMULIN R SUBQ SCH ×6 (01:11→19:40)
[2018-04-19] MEDS: DUONEB (A & A) INH SCH ×6 (03:02→23:00)
[2018-04-19 03:16] LABS: HEMATOCRIT 27.9 % (42.0-52.0); MCH 29.2 PG (27-31); MCHC 32.3 g/dL (33-37); MCV 90.6 FL (81-99); MPV 10.1 FL (7.4-10.4); RBC 3.08 XMIL (4.7-6.1); RDW 18.6 % (11.5-14.5); WBC 25.23 X1000 (4.8-10.8)
[2018-04-19 03:31] LABS: ALB/GLOB RATIO 0.5; ALBUMIN 3.1 g/dL (3.5-5.0); CALCIUM 9.4 mg/dL (8.8-10.2); CREATININE 4.7 mg/dL (0.7-1.2); POTASSIUM 5.1 mmol/L (3.5-5.1); TOTAL BILIRUBIN 0.41 mg/dL (0.20-1.00); TOTAL PROTEIN 8.9 g/dL (6.3-8.3)
[2018-04-19 04:51] LABS: ALLEN TEST YES; BE -8.1 mmoll (-3.0-3.0); BLOOD TYPE ARTERIAL; HCO3-(ACT) 18.6 mmoll (20.0-26.0); METHB 0.8 % (0.0-1.5); O2(CT) 10.8 mL/dL (15.0-23.0); PCO2(98.6) 41 mmHg (35-45); PO2(98.6) 94 mmHg (60-100); SAMPLE BLOOD; SAO2 99.4 % (95.0-100.0); THB 7.9 g/dL (11.5-17.4); pH(98.6) 7.26 (7.35-7.45)
[2018-04-19 04:52] LABS: MODALITY CANNULA
[2018-04-19] MEDS ORDERED: HUMULIN R IV ONE (06:30)
--- NOTE | 2018-04-19 07:23 | Diag Imaging Result Doc PS360 ---
EXAM: CHEST-PORTABLE INDICATION: respiratory failure TECHNIQUE: One view COMPARISON: 04/18/2018 FINDINGS: The NG tube is in stable position. Lung volumes are slightly lower than the previous study. Consolidation at the left lung base has largely resolved. No new consolidation is identified. Cardiac silhouette is stable. IMPRESSION: Lower lung volumes and near resolution of the consolidation at the left lung base. Electronically signed by Carlos Bray 04/19/2018 7:21 AM
[2018-04-19] MEDS: MUCOMYST 20% INH SCH (07:28)
[2018-04-19] MEDS: MIRALAX PO SCH ×3 (08:09→17:04)
[2018-04-19] MEDS: HUMULIN N SUBQ SCH ×2 (08:09→20:17)
[2018-04-19] MEDS: COMBIGAN OPHTH SOLN BOTH EYES SCH ×2 (08:10→19:59)
[2018-04-19] MEDS: MYCOSTATIN CREAM TOP SCH ×2 (08:10→19:59)
[2018-04-19] MEDS ORDERED: SALINE LOCK IV FLUID XX ONE (08:30)
--- NOTE | 2018-04-19 08:34 | PROGRESS NOTE ---
DATE: 04/19/2018 SUBJECTIVE: Galen Vega is a 53-year-old male who has had a septic left knee and had acute DKA with sepsis as well. He has now been extubated and is appropriate and responsive. LABORATORY: His white count is still 25,000. OBJECTIVE: Left knee: He has had minimal drainage from his knee. His wound shows some mild purulent material, but no starla pus is draining. ASSESSMENT: Stable left knee. PLAN: We will continue with dressing changes for now. We may need to re-debride his knee once he is stabilized more. cc: MD Capri Sarmiento MD
--- NOTE | 2018-04-19 08:51 | NEPHROLOGY PROGRESS NOTE ---
DATE: 04/19/2018 TIME SEEN: 0610. SUBJECTIVE: Mr. Vega is resting quietly in bed. He is more awake and arousable. He remains nonverbal. OBJECTIVE: Vitals: His most recent vital signs, his last temperature 97.8 degrees, blood pressure 135/84, heart rate 102, respirations are 16, he is currently on 4 L nasal cannula. Last recorded saturation is 99%. General: This is a 53-year-old black male, currently resting quietly in bed. He appears chronically ill, though no acute distress. Skin: Warm and dry. HEENT: Normocephalic, atraumatic. Conjunctiva is pale. He has SANDRA. Mucous membranes are dry. Neck: Supple, trachea midline. No JVD. Cardiovascular: Regular rate and rhythm. S4 present. Tachycardic on the monitor. Lungs: Clear to auscultation bilaterally. Equal excursion with diminished inspiratory effort. Remains on O2 support. Abdomen: Soft, nontender, positive bowel sounds. Genitourinary: Not inspected. Patient has Stoner catheter in place. Minimal urine out with dialysis assist. Extremities: Have no edema, no clubbing or cyanosis. Surgical dressing in place on the left leg. INPUT AND OUTPUT: He has had 1645 in, 4.4 L removed off dialysis yesterday. He has had 100 mL out to his Stoner. LABORATORY DATA: Sodium 134, potassium 5.1, chloride 98, CO2 17, BUN 50, creatinine 4.7, glucose 382. Anion gap of 19, calcium 9.4, albumin 3.1. White count 25.23, hemoglobin 9, hematocrit 27.9, platelet count 353,000. Arterial blood gases: PH 7.26, CO2 41, PO2 94, bicarb 18.6 on 4 L. ASSESSMENT AND PLAN: 1. Acute kidney injury. Patient is without recovery. Urine output was better yesterday, though he had not had dialysis over the weekend, 100 mL out today with 4.4 L removed on dialysis. We will let the patient rest today. We will plan for dialysis in the morning. 2. Electrolytes and acid-base balance, again with correction on dialysis. 3. Anemia. This is low, but acceptable. 4. Acute respiratory failure with metabolic encephalopathy. Patient does have sepsis with wound to the left knee. It did grow MRSA. This continues to be followed by primary care, Dr. Rivas and Dr. Bashir. I would like to thank you for allowing us to follow with this patient. Dictated by EUGENE Agee for Donell Cruz MD Face to face encounter, data reviewed, discussed with Diamond Mcgovern on 04/19/18. I agree with the above assessment and plan of care. cc: EUGENE Agee MD M. Neel Roberts, MD [facility]PITALAbdirashid
--- NOTE | 2018-04-19 13:51 | PROGRESS NOTE ---
DATE: 04/19/2018 Mr. Vega is now extubated. He is breathing comfortably. O2 saturations are ranging from 95 to 98% on 3 L of O2. The left lower lobe infiltrate has nearly resolved. Renal function continues to improve, with dialysis this morning his BUN and creatinine were 50 and 4.7, blood sugars continue to fluctuate. He is afebrile. Pulse 100, respiratory rate 21, BP 143/85.CV: Regular rate and rhythm. Lungs: Crackles in the left base. Abdomen: Soft, nontender, with active bowel sounds. ASSESSMENT AND PLAN: 1. Acute respiratory failure with hypoxia secondary to aspiration pneumonia. Clinically he continues to improve. We will continue to try to wean him off O2 completely. We will continue vancomycin and Zosyn. Hopefully, we will be able to transition him off the Zosyn fairly quickly. 2. Metabolic encephalopathy secondary to septic left knee with severe sepsis leading to acute renal failure requiring dialysis. Fluid cultures grew out methicillin-resistant Staphylococcus aureus . I have spoken to Dr. Burnett. He will probably need at least 8 weeks of IV antibiotics prior to placement of a bharat in his late for stabilization if it does not fuse spontaneously on its own. He will most likely need a PICC line. We will continue IV vancomycin. 3. Type 2 insulin-dependent diabetes mellitus. His blood sugars are too high. I am going to stop the D5. We will continue NPH insulin 25 units subcutaneously b.i.d. and pattern sugars and Humulin R sliding scale. cc: Capri Rossi MD
[2018-04-19] MEDS: SODIUM CHLORIDE 0.9% INJ SCH (19:59)
[2018-04-19] MEDS: LOVENOX SUBQ SCH (19:59)
[2018-04-19] MEDS: PROTONIX IV SCH (19:59)
[2018-04-19] MEDS: PATADAY 0.2% OPH SOLUTION BOTH EYES SCH (20:00)
--- NOTE | 2018-04-19 20:42 | PULMONOLOGY PROGRESS NOTE ---
DATE: 04/19/2018 SUBJECTIVE: The patient is arousable and alert. He continues to require BiPAP intermittently. OBJECTIVE: HEENT: Pupils are equal and reactive. Oropharynx reveals some swelling of the lips, upper significantly more than the lower. Tongue slightly enlarged, but no overt macroglossia. Neck is supple. No wheezing appreciated. Chest reveals good air entry bilaterally. Cardiac exam: S1, S2. Abdomen is soft and without hepatosplenomegaly. LABORATORY DATA: White blood count 25,000, hemoglobin 9.0, platelet count 353,000. Sodium 134, potassium 5.1, chloride 98, bicarbonate 17, BUN 50, creatinine 4.7, glucose 309. Arterial blood gas pH 7.26, pCO2 of 41, pO2 of 96 on nasal cannula. BiPAP appeared to be off at that time. DIAGNOSTIC DATA: Chest x-ray reveals clear lung arenas bilaterally with a generous cardiac silhouette. IMPRESSION: A 53-year-old with: 1. Acute hypoxemic respiratory failure. 2. Pneumonia which appears to be resolving. 3. Edema of the upper lip, more prominent than the lower lip. It is not clear if this represents trauma from attempted intubation or represents some type of angioedema. 4. Acute renal failure. 5. Altered mental status, with marginal improvement. RECOMMENDATIONS: 1. Continue to cycle BiPAP and supplemental oxygen as tolerated. 2. Continue vancomycin for methicillin-resistant Staphylococcus aureus knee infection with bacteremia. 3. Discontinue Zosyn. It is possible that he is having some reaction to the Zosyn, given the increased size of his lip. 4. Discontinue Mucomyst. Mucomyst can cause stomatitis. 5. Continue antibiotics for MRSA infection. cc: MD Capri Schmidt MD
[2018-04-19] MEDS: ATIVAN IV PRN (21:49)
[2018-04-20] MEDS: HUMULIN R SUBQ SCH ×7 (00:10→23:56)
[2018-04-20] MEDS: DUONEB (A & A) INH SCH ×6 (03:05→23:34)
[2018-04-20 04:33] LABS: ALLEN TEST YES; BE -9.1 mmoll (-3.0-3.0); BLOOD TYPE ARTERIAL; HCO3-(ACT) 17.8 mmoll (20.0-26.0); METHB 0.3 % (0.0-1.5); O2(CT) 13.9 mL/dL (15.0-23.0); O2HB 96.3 % (95.0-99.0); PO2(98.6) 107 mmHg (60-100); SAMPLE BLOOD; SAO2 99.2 % (95.0-100.0); THB 10.1 g/dL (11.5-17.4)
[2018-04-20 04:34] LABS: MODALITY BI PAP
[2018-04-20 04:35] LABS: PCO2(98.6) 53 mmHg (35-45); pH(98.6) 7.17 (7.35-7.45)
[2018-04-20] MEDS ORDERED: TIGHT: 0.2 ML/HR FOR DIALYSIS MISC PRN (06:03)
[2018-04-20] MEDS ORDERED: HEPARIN IV PRN (06:03)
[2018-04-20] MEDS ORDERED: NS 2,000 ML MISC PRN (06:03)
[2018-04-20 06:10] LABS: HEMATOCRIT 23.7 % (42.0-52.0); HEMOGLOBIN 7.6 g/dL (14.0-18.0); MCH 29.1 PG (27-31); MCHC 32.1 g/dL (33-37); MCV 90.8 FL (81-99); MPV 11.1 FL (7.4-10.4); RBC 2.61 XMIL (4.7-6.1); RDW 18.6 % (11.5-14.5)
[2018-04-20 06:14] LABS: ALB/GLOB RATIO 0.8; ALBUMIN 3.3 g/dL (3.5-5.0); CALCIUM 9.7 mg/dL (8.8-10.2); CREATININE 7.2 mg/dL (0.7-1.2); POTASSIUM 4.7 mmol/L (3.5-5.1); TOTAL BILIRUBIN 0.24 mg/dL (0.20-1.00); TOTAL PROTEIN 7.6 g/dL (6.3-8.3)
[2018-04-20] MEDS ORDERED: NS 1,000 ML ONE (06:23)
[2018-04-20] MEDS: DIPRIVAN 1% 1,000 MG/100 ML BOTTLE IV SCH ×7 (06:50→23:55)
[2018-04-20] MEDS ORDERED: QUELICIN (DOSE) ONE (06:53)
[2018-04-20] MEDS: ATIVAN IV PRN (06:54)
[2018-04-20] MEDS ORDERED: DIPRIVAN 1% ONE (06:54)
--- NOTE | 2018-04-20 07:20 | Diag Imaging Result Doc PS360 ---
EXAM: CHEST-PORTABLE 04/20/2018 HISTORY: respiratory failure TECHNIQUE: AP portable at 0640 COMMENT: There is an endotracheal tube with its tip at thoracic inlet and an NG tube with its tip below the diaphragm. There is platelike opacity in the retrocardiac left lower lobe which was also present on 04/19/2018. Overall there has been no significant change. IMPRESSION: Left lower lobe atelectasis. Electronically signed by Jorge A Nunez 04/20/2018 7:17 AM
[2018-04-20] MEDS: MIRALAX PO SCH ×3 (08:11→16:29)
[2018-04-20] MEDS: COMBIGAN OPHTH SOLN BOTH EYES SCH ×2 (08:11→20:09)
[2018-04-20] MEDS: HUMULIN N SUBQ SCH ×2 (08:11→20:09)
[2018-04-20] MEDS: MYCOSTATIN CREAM TOP SCH ×2 (08:12→20:09)
--- NOTE | 2018-04-20 08:26 | NEPHROLOGY PROGRESS NOTE ---
DATE: 04/20/2018 SUBJECTIVE: Mr. Vega is resting quietly. He is currently on BiPAP. He opens his eyes to verbal stimuli. Otherwise, unable to follow commands. Nonverbal. OBJECTIVE: His most recent vital signs- his last temperature 97.5 degrees, blood pressure 159/82, heart rate is 96, respirations are 20. He is currently on 30% BiPAP. Last recorded saturation is 100%. He has had 2220 in only 90 mL out requiring dialysis today. LABORATORY DATA: Sodium 137, potassium 4.7, chloride 99, CO2 14, BUN 83, creatinine 7.2, glucose 145. The patient's anion gap is elevated at 24. His calcium is 9.7, albumin of 3.3 white count 25, hemoglobin 7.6, hematocrit is 23.7 with a platelet count of 326,000 ABGs pH 7.17, CO2 53, PO2 107, bicarb 17.8. The patient has a lactate of 0.8 on BiPAP of 30%. PHYSICAL EXAMINATION: General: This is a 53-year-old male he is currently resting in bed. He appears chronically ill. He is in mild respiratory distress. Skin: Warm and dry. HEENT: Normocephalic, atraumatic. Conjunctivae pale. He has SANDRA. Mucous membranes are dry. Neck: Supple, trachea midline unable to determine JVD. Cardiovascular: Regular rate and rhythm. He has an S4 present. Lungs: Have coarse breath sounds bilateral, scattered rhonchi with crackles, remains on BiPAP. He is awaiting intubation per anesthesiology. Abdomen: Soft, nontender. Hypoactive bowel sounds present. His NG tube is currently clamped from tube feeding. Genitourinary: Not inspected. Minimal urine out with dialysis assist plan for today. Extremities: He has no edema. No clubbing or cyanosis. He does have a surgical dressing placed on the left leg. ASSESSMENT AND PLAN: 1. Acute kidney injury. Patient is without recovery. We will plan for dialysis today at the bedside after intubation. We will place him on a 2 K bath. He is to dialyze for 3.5 hours. We will attempt to pull 2 L of ultrafiltration as tolerated. 2. Electrolytes and acid-base balance again with correction on dialysis. 3. Anemia. This is low but acceptable. We will defer to the primary care team when needed for infusion. 4. Acute respiratory failure with metabolic encephalopathy. Patient is currently on BiPAP. He is due to be intubated this a.m. This is being followed by the primary care and Dr. Bashir. 5. Sepsis. Wound left knee. It is growing out MRSA followed by Dr. Rivas, and the primary care team. I would Like to thank you for allowing us to follow with this patient. Dictated by EUGENE Agee for Donell Cruz MD Face to face encounter, data reviewed, discussed with Diamond Mcgovern on 04/20/18. I agree with the above assessment and plan of care. cc: EUGENE Agee MD M. Neel Roberts, MD [facility]ITALAbdirashdi
[2018-04-20 10:50] LABS: ALLEN TEST YES; BE 0.4 mmoll (-3.0-3.0); BLOOD TYPE ARTERIAL; HCO3-(ACT) 25.3 mmoll (20.0-26.0); METHB 0.9 % (0.0-1.5); O2(CT) 10.6 mL/dL (15.0-23.0); O2HB 96.9 % (95.0-99.0); PCO2(98.6) 33 mmHg (35-45); PO2(98.6) 194 mmHg (60-100); SAMPLE BLOOD; SAO2 99.8 % (95.0-100.0); SRATE 16 BPM; THB 7.4 g/dL (11.5-17.4); TVOL 600 mL; pH(98.6) 7.47 (7.35-7.45)
[2018-04-20 10:53] LABS: MODALITY VENTILATOR
[2018-04-20] MEDS ORDERED: VANCOMYCIN 1 GM/NS 1 GM/250 ML IVPB IV ONE (17:00)
[2018-04-20] MEDS: PROTONIX IV SCH (20:09)
[2018-04-20] MEDS: LOVENOX SUBQ SCH (20:10)
[2018-04-20] MEDS: PATADAY 0.2% OPH SOLUTION BOTH EYES SCH (20:11)
--- NOTE | 2018-04-20 21:16 | PROGRESS NOTE ---
DATE: 04/20/2018 SUBJECTIVE: Mr. Vega apparently had increasing shortness of breath and increased work of breathing throughout the night, even on BiPAP. He required re-intubation early this morning. When I saw him yesterday, he was on 3 L of O2, and his chest x-rays demonstrate near-resolution of the pneumonia. His blood sugars are ranging from 195 to 245. He is tolerating tube feedings. Renal function was still poor. His BUN was 83, and his creatinine was 7.2. PHYSICAL EXAMINATION: Vital signs: Temperature 98.6 degrees, pulse 87, respirations 12, BP 110/57. Cardiovascular: Regular rate and rhythm. Lungs: Faint crackles in the bases bilaterally. Abdomen: Soft, nontender, with active bowel sounds. Extremities: Without edema. ASSESSMENT AND PLAN: 1. Acute respiratory failure with hypoxia. His chest x-ray shows improvement to near-resolution of the aspiration pneumonia. He is now off Zosyn. He had periods of hypoxia, even on BiPAP. It makes us wonder whether or not he has sleep apnea. This is the 2nd time that he has been re-intubated. Overall, he is very weak from the sepsis. I spoke to Dr. Bashir this morning, and he feels that placement of a tracheostomy would be indicated. I spoke to Galen's brother, Carlos Vega, and his mother, Anushka Vega, who have consented for placement of a tracheostomy tube. 1. Sepsis, secondary to septic left knee. We will continue broad-spectrum IV vancomycin and will re-dose vancomycin with dialysis. cc: Capri Rossi MD
--- NOTE | 2018-04-20 23:46 | PULMONOLOGY PROGRESS NOTE ---
DATE: 04/20/2018 INTERIM HISTORY: The patient had periods of apnea last evening. His arterial blood gas has revealed progressive acidemia and increasing CO2 over the last 48 hours. The patient was electively intubated by Anesthesia this morning due to worsening blood gas and periods of apnea. OBJECTIVE: Vital Signs: The patient has been afebrile for the last 24 hours. BP 105/64, heart rate 85, respiratory rate 16, oxygen saturation 100%. HEENT: Pupils are equal. Oropharynx appears clear. Neck: Supple. Chest: Reveals occasional rhonchi bilaterally. Cardiac exam: S1, S2. Abdomen: Soft, with good bowel sounds. Extremities: Reveal surgical dressing on the left leg. LABORATORIES: Chest x-ray reveals good endotracheal tube placement, with atelectasis at the left base without significant change. Arterial blood gas following intubation: pH 7.47, pCO2 of 33, pO2 of 194. IMPRESSION: A 53-year-old with diabetes mellitus, who presented with Staphylococcus aureus bacteremia, infected left total knee arthroplasty, septic shock, and diabetic ketoacidosis. The patient has had his left total knee arthroplasty removed but has had continued difficulty with generalized weakness and changes in mental status. He has failed 3 extubations, one immediately after surgery, one within 3 days of surgery, and the most recent one after he had an unplanned extubation. Due to the patient's continued failure to extubate, it is recommended that we proceed with tracheostomy. RECOMMENDATIONS: 1. Continue ventilatory support. 2. Continue vancomycin for MRSA resistant knee infection. 3. Continue tube feeds. 4. Tracheostomy as outlined above. This was discussed with Dr. David No and with Dr. Nilesh Rossi. cc: MD aCpri Schmidt MD
[2018-04-21] MEDS: DIPRIVAN 1% 1,000 MG/100 ML BOTTLE IV SCH ×7 (01:59→21:07)
[2018-04-21] MEDS: HUMULIN R SUBQ SCH ×5 (03:55→21:05)
[2018-04-21 06:15] LABS: MCHC 32.8 g/dL (33-37)
[2018-04-21 06:31] LABS: HEMATOCRIT 20.1 % (42.0-52.0); HEMOGLOBIN 6.6 g/dL (14.0-18.0); MCH 29.5 PG (27-31); MCV 89.7 FL (81-99); MPV 10.9 FL (7.4-10.4); RBC 2.24 XMIL (4.7-6.1); RDW 18.9 % (11.5-14.5); WBC 20.22 X1000 (4.8-10.8)
[2018-04-21] MEDS: DUONEB (A & A) INH SCH ×6 (06:36→23:06)
--- NOTE | 2018-04-21 07:32 | Diag Imaging Result Doc PS360 ---
EXAM: CHEST-PORTABLE HISTORY: respiratory failure TECHNIQUE: Portable chest single view COMPARISON: 04/20/2018 FINDINGS: No change in the endotracheal tube or nasogastric tube. No cardiomegaly. Worsening infiltrates and atelectasis in the left lung base. There may be small left pleural effusion as well. IMPRESSION: Mild interval worsening. Electronically signed by Hugo Juares 04/21/2018 7:30 AM
[2018-04-21] MEDS ORDERED: NS 2,000 ML MISC PRN (07:54)
[2018-04-21] MEDS ORDERED: TIGHT: 0.2 ML/HR FOR DIALYSIS MISC PRN (07:54)
[2018-04-21] MEDS ORDERED: HEPARIN IV PRN (07:54)
[2018-04-21] MEDS: HUMULIN N SUBQ SCH ×4 (08:01→21:06)
[2018-04-21] MEDS: COMBIGAN OPHTH SOLN BOTH EYES SCH ×2 (08:01→21:05)
[2018-04-21] MEDS: MIRALAX PO SCH ×4 (08:02→16:20)
[2018-04-21] MEDS: MYCOSTATIN CREAM TOP SCH ×2 (08:02→21:06)
[2018-04-21 08:29] LABS: ALB/GLOB RATIO 0.6; ALBUMIN 2.8 g/dL (3.5-5.0); CALCIUM 8.9 mg/dL (8.8-10.2); CREATININE 5.8 mg/dL (0.7-1.2); POTASSIUM 4.3 mmol/L (3.5-5.1); TOTAL BILIRUBIN 0.3 mg/dL (0.20-1.00); TOTAL PROTEIN 7.4 g/dL (6.3-8.3)
--- NOTE | 2018-04-21 08:42 | GENERAL SURGERY PROGRESS NOTE ---
DATE: 04/21/2018 SUBJECTIVE: Discussed with Dr. Bashir. The patient known to me because I put a Vas-Cath in him. He has had issues with multiple intubations and potentially for angioedema. There is potential that he may need a tracheostomy. I have looked at the OR schedule. I could potentially do it on Wednesday. We will discuss further with family. cc: MD Capri Velasquez MD MTDAbdirashid
--- NOTE | 2018-04-21 09:09 | PROGRESS NOTE ---
DATE: 04/21/2018 SUBJECTIVE: Mr. Vega has been reintubated on two different times during this hospitalization. His vent settings demonstrated a spontaneous rate of 16, FiO2 of 50%, tidal volume 600, and PEEP of 5. Blood gases demonstrate a pH of 7.47, pCO2 33, PO2 194, and O2 saturation 99.8%. His chest x-ray this morning demonstrated worsening infiltrates and atelectasis in the left base. Blood sugars are still fluctuating. His sugars are ranging from 247 to 252. He is tolerating tube feedings without residuals. Renal function has improved somewhat. Today, his BUN and creatinine was 6.2 and 5.8. He is scheduled for dialysis. He had urine output of approximately 100 mL. OBJECTIVE: He is afebrile, pulse 87, respirations 15, and BP 104/47.CV: Regular rate and rhythm. Lungs: Crackles in the bases bilaterally. Abdomen: Soft, nontender with active bowel sounds. Extremities: Without edema. LABORATORY: Various laboratory studies were obtained. BMP demonstrated the following. Sodium 130, potassium 4.3, chloride 92, BUN 62, creatinine 5.8 and glucose 227. A CBC demonstrated a white count of 20.2, hemoglobin 6.6, hematocrit 20.1 and a platelet count of 255,000. ASSESSMENT AND PLAN: 1. Acute respiratory failure with hypoxia secondary to aspiration pneumonia. He has required reintubation on two different occasions. We have had a long discussion with the family, and they are agreeable to placement of a tracheostomy tube for airway protection when we attempt to extubate him again. 2. Septic left knee with severe sepsis. We will continue IV vancomycin dosed after dialysis. Wound cultures grew out MRSA. 3. Acute renal failure. I suspect that he has acute tubular necrosis. I am hoping that he will be able to recover his renal function. He has dialysis today. 4. Anemia of chronic disease. I suspect that his anemia is due to the underlying sepsis as well as acute renal failure. He is scheduled for blood transfusion during dialysis today. 5. Type 2 insulin-dependent diabetes mellitus. His blood sugars are still too high. I will increase the Humulin NPH to 30 units subcutaneously b.i.d. cc: Capri Rossi MD
[2018-04-21] MEDS ORDERED: HUMULIN R ONE (09:16)
--- NOTE | 2018-04-21 12:41 | NEPHROLOGY PROGRESS NOTE ---
DATE: 04/21/2018 TIME SEEN: 06. SUBJECTIVE: Mr. Vega is resting quietly in bed. He is ventilator dependent, with sedation. OBJECTIVE: Vital Signs: His most recent vital signs, temperature 99.3 degrees, blood pressure 104/77, heart rate 86, respirations 12. He is on 40% FiO2. His last recorded saturation is 99%. He has had 2111 in. He has had 1585 out with 85 mL to Stoner catheter, the rest per dialysis yesterday. Labs: His sodium is 130, potassium is 4.3, chloride is 92, CO2 is 19, BUN is 62, creatinine is 5.8, glucose 227, the patient has an anion gap of 19, calcium is 8.9. His albumin is 2.8. The patient has stool with Clostridium difficile pending. White count is 20.22, hemoglobin 6.6, hematocrit 20.1, with a platelet count of 255,000. Physical Examination: General: This is a 53-year-old, male. He is resting quietly in bed. Appears in no acute distress. Ventilator dependent, with sedation. HEENT: Normocephalic, atraumatic. Conjunctivae are pale. He has SANDRA. Mucous membranes are dry. Oral ET tube is in place. Neck: Supple. Trachea midline. No evidence of JVD. Cardiovascular: Regular rate and rhythm. S4 is present. Lungs: Clear to auscultation anteriorly. Equal excursion. Ventilator support. Abdomen: Soft, nontender. Positive bowel sounds. The patient has NG tube with tube feedings infusing. Genitourinary: Not inspected. Stoner catheter is in place. Extremities: The patient has no edema. Surgical dressing in place to the left leg. Neurological: As above. ASSESSMENT AND PLAN: 1. Acute kidney injury. Patient is without recovery. He had dialysis yesterday but secondary to a low hemoglobin of 6.6, we will plan to dialyze today. We will place him on a 3 K bath, 3 hours. We will plan to pull 2 L of ultrafiltration and transfuse 2 units of packed red blood cells. 2. Electrolytes and acid-base balance, with correction on dialysis. 3. Anemia. Hemoglobin of 6.6, with plans for 2 units of packed red blood cell transfusion today. 4. Acute respiratory failure. Patient remains intubated. Followed by Dr. Bashir and the primary care. 5. Sepsis, left wound, knee. Followed by Dr. Rivas and primary care. Dictated by EUGENE Agee for Donell Cruz MD Face to face encounter, data reviewed, discussed with Diamond Mcgovern on 04/21/18. I agree with the above assessment and plan of care. cc: EUGENE Agee MD M. Neel Roberts, MD [facility]OSPITALAbdirashid
--- NOTE | 2018-04-21 12:58 | PROGRESS NOTE ---
DATE: 04/21/2018 SUBJECTIVE: Mr. Vega is a 53-year-old male who is postoperative day 11 from a left knee irrigation, debridement, and external fixator placement. Unfortunately, he was reintubated yesterday. He has had no interval changes regarding his left knee. OBJECTIVE: He is intubated and sedated. His left knee incision is intact with sutures. There is some bloody drainage at the medial aspect of the incision. ASSESSMENT: Postoperative from a left knee irrigation, debridement, and external fixator placement. PLAN: We will continue his current management with daily dressing changes and continue to monitor his left knee wound. Dictated by REESE Mason for Jasson Yan MD cc: REESE Mason MD M. Neel Roberts, MD
[2018-04-21 15:31] LABS: ALLEN TEST YES; BE -1.8 mmoll (-3.0-3.0); BLOOD TYPE ARTERIAL; HCO3-(ACT) 23.6 mmoll (20.0-26.0); METHB 0.7 % (0.0-1.5); O2HB 96.9 % (95.0-99.0); PCO2(98.6) 43 mmHg (35-45); PO2(98.6) 114 mmHg (60-100); SAMPLE BLOOD; SAO2 99.5 % (95.0-100.0); SRATE 12 BPM; THB 6.4 g/dL (11.5-17.4); TVOL 600 mL; pH(98.6) 7.35 (7.35-7.45)
[2018-04-21 15:35] LABS: MODALITY VENTILATOR
[2018-04-21] MEDS: ATIVAN IV PRN (15:35)
[2018-04-21] MEDS ORDERED: VANCOMYCIN 1 GM/NS 1 GM/250 ML IVPB IV ONE (17:00)
--- NOTE | 2018-04-21 17:36 | Diag Imaging Result Doc PS360 ---
EXAM: KNEE 1-2 VIEWS-LEFT INDICATION: post op left knee fusion TECHNIQUE: 2 views COMPARISON: 04/08/2018 FINDINGS: There has been recent removal of the left knee arthroplasty hardware and fusion of the left knee joint.. There are cement particles associated with the joint. There are external pins and rods better immobilizing the knee. There is soft tissue edema around the knee. No fracture is identified. IMPRESSION: Recent removal of the arthroplasty hardware and fusion of the knee joint as described. Electronically signed by Carlos Bray 04/21/2018 5:34 PM
[2018-04-21] MEDS: LOVENOX SUBQ SCH (21:06)
[2018-04-21] MEDS: PROTONIX IV SCH (21:07)
[2018-04-21] MEDS: PATADAY 0.2% OPH SOLUTION BOTH EYES SCH (21:07)
--- NOTE | 2018-04-21 21:32 | PULMONOLOGY PROGRESS NOTE ---
DATE: 04/21/2018 SUBJECTIVE: Patient appears to be comfortable on mechanical ventilation. He has been afebrile for the last 24 hours. OBJECTIVE: Vital signs: Blood pressure 102/56, heart rate 85, respiratory rate 12, oxygen saturation 97%. HEENT: Pupils are equal and reactive. Oropharynx is clear, but evaluation is limited with endotracheal tube in place. Neck: Supple. Chest: Reveals scattered rhonchi. Cardiac exam: S1, S2. Abdomen: Soft. Extremities: Without edema. LABORATORIES: The knee x-ray is reviewed. Arthroplasty hardware has been removed. Knee appears to be in good alignment. Chest x-ray reveals slight increased atelectasis at the left base. Sputum cultures are negative for growth. White blood count 22,000, hemoglobin 6.6, platelet count 255,000. Arterial blood gas reveals a pH of 7.35, pCO2 of 43, pO2 of 114. IMPRESSION: A 53-year-old with: 1. Diabetes mellitus. 2. Staphylococcus aureus bacteremia associated with an infected left knee total arthroplasty. 3. Septic shock. 4. Diabetic ketoacidosis. 5. Status post removal of hardware and fusion of left knee. 6. Status post 3 failed extubations with recurrent acute hypoxemic and hypercapnic respiratory failure. 7. Altered mental status. RECOMMENDATIONS: 1. Continue ventilatory support. 2. Continue vancomycin. 3. Continue tube feeds. 4. Anticipate tracheostomy early next week due to recurrent failed extubations and altered mental status. TIME SPENT IN CRITICAL CARE MANAGEMENT: 30+ minutes. cc: MD Capri Schmidt MD
[2018-04-21 21:34] LABS: URINE SOURCE CATH
[2018-04-21 21:38] LABS: BILIRUBIN URINE NEGATIVE (NEGATIVE); BLOOD URINE MODERATE (NEGATIVE); COLOR ORANGE; GLUCOSE URINE NEGATIVE (NEGATIVE); KETONE URINE NEGATIVE (NEGATIVE); LEUKOCYTES URINE LARGE (NEGATIVE); NITRITE URINE NEGATIVE (NEGATIVE); PROTEIN URINE 100 mg/dL (NEGATIVE); TURBIDITY URINE TURBID (CLEAR); UR EPITHELIAL CELLS >10 /HPF (<10); URINE BACTERIA NEGATIVE /HPF; URINE RBC TNTC /HPF (<10); URINE WBC TNTC /HPF (<10); UROBILINOGEN URINE NORMAL (NORMAL)
[2018-04-21 21:42] LABS: URINE CASTS NONE SEEN; URINE YEAST PRESENT
[2018-04-22] MEDS: DIPRIVAN 1% 1,000 MG/100 ML BOTTLE IV SCH ×9 (00:25→23:52)
[2018-04-22] MEDS: HUMULIN R SUBQ SCH ×7 (00:40→23:51)
[2018-04-22] MEDS: DUONEB (A & A) INH SCH ×6 (02:51→23:27)
[2018-04-22 04:19] LABS: ALB/GLOB RATIO 0.6; CALCIUM 9.6 mg/dL (8.8-10.2); CREATININE 4.5 mg/dL (0.7-1.2); POTASSIUM 3.9 mmol/L (3.5-5.1); TOTAL BILIRUBIN 0.24 mg/dL (0.20-1.00)
[2018-04-22 04:22] LABS: HEMATOCRIT 26.3 % (42.0-52.0); HEMOGLOBIN 8.5 g/dL (14.0-18.0); MCH 28.3 PG (27-31); MCHC 32.3 g/dL (33-37); MCV 87.7 FL (81-99); MPV 10.7 FL (7.4-10.4); RDW 17.6 % (11.5-14.5); WBC 17.68 X1000 (4.8-10.8)
[2018-04-22 04:48] LABS: ALLEN TEST YES; BE -0.7 mmoll (-3.0-3.0); BLOOD TYPE ARTERIAL; HCO3-(ACT) 24.4 mmoll (20.0-26.0); O2(CT) 12.7 mL/dL (15.0-23.0); PCO2(98.6) 29 mmHg (35-45); PO2(98.6) 133 mmHg (60-100); SAMPLE BLOOD; SAO2 99.7 % (95.0-100.0); SRATE 12 BPM; THB 9.1 g/dL (11.5-17.4); TVOL 600 mL; pH(98.6) 7.49 (7.35-7.45)
[2018-04-22 04:49] LABS: MODALITY VENTILATOR
--- NOTE | 2018-04-22 06:35 | GENERAL SURGERY PROGRESS NOTE ---
DATE: 04/22/2018 I have the patient tentatively scheduled for a tracheostomy on Wednesday. We will get consent. Otherwise, patient seems to be doing about the same. He is still having issues with urine output and swelling around his lips. I discussed this case with the nurse. cc: MD Capri Velasquez MD
--- NOTE | 2018-04-22 06:54 | Diag Imaging Result Doc PS360 ---
EXAM: CHEST-PORTABLE HISTORY: ventilator pt TECHNIQUE: Portable chest single view COMPARISON: 04/21/2018 FINDINGS: No change in the endotracheal tube or nasogastric tube. There are infiltrates in the left base with small effusion. The right lung has atelectasis or infiltrates in the lung bases similar to the prior exam. No cardiomegaly. IMPRESSION: No interval improvement. Electronically signed by Hugo Juares 04/22/2018 6:51 AM
--- NOTE | 2018-04-22 08:04 | PROGRESS NOTE ---
DATE: 04/22/2018 SUBJECTIVE: Galen Vega is a 53-year-old male with a left septic knee, now with a knee effusion. He is intubated currently. There is no interval change as far as his knee is concerned. OBJECTIVE: He is intubated as previously stated. His dressing is clean, dry, and intact. There appears to be minimal drainage since yesterday. LABORATORY DATA: His white count is still high, although it seems to be trending down; it is down to 17 today. ASSESSMENT: Septic left knee and sepsis with respiratory failure requiring intubation and likely a tracheostomy on Wednesday. PLAN: We will continue to monitor him. I will be out until next week; however, if there are any questions, you can call Migdalia, my PA, and she can get in touch with me. cc: MD Capri Sarmiento MD
[2018-04-22] MEDS: ATIVAN IV PRN ×2 (09:23→15:26)
--- NOTE | 2018-04-22 09:23 | PROGRESS NOTE ---
DATE: 04/22/2018 SUBJECTIVE: Mr. Vega is resting comfortably this morning. Arterial blood gases demonstrated a pH of 7.49, PO2 of 133, pCO2 29, and an O2 saturation of 99% on assist control with spontaneous rate of 12, FiO2 40%, PEEP of 5 and tidal volume of 600. His chest x-ray showed persistent infiltrates in the bases bilaterally. He is tolerating tube feedings. Blood sugars are ranging from 175 to 238. He is undergoing dialysis. Yesterday, he had minimal urine output. OBJECTIVE: He is afebrile. Pulse 91, respiratory rate 17 and BP 139/85.CV: Regular rate and rhythm. Lungs: Crackles in the bases bilaterally. Abdomen: Soft, nontender with active bowel sounds. Extremities: Without edema. ASSESSMENT AND PLAN: 1. Acute respiratory failure with hypoxia. He has been reintubated on 2 different occasions. I have spoken to the family who have given consent for placement of a tracheostomy. Dr. No plans to place the tracheostomy on Wednesday. 2. Septic left knee with severe sepsis. Cultures grew out MRSA. He is on vancomycin dosed after dialysis. His leukocytosis is improving. His white count is 17,000. We will continue supportive measures. 3. Acute renal failure secondary to acute tubular necrosis. I appreciate Dr. Cruz's help. He will dialyze as per Dr. Cruz. I am hopeful that he will regain normal renal function at some point in the future. 4. Type 2 insulin-dependent diabetes mellitus. His blood sugars are generally well controlled on NPH insulin. cc: Capri Rossi MD
[2018-04-22] MEDS: MIRALAX PO SCH (09:24)
[2018-04-22] MEDS: COMBIGAN OPHTH SOLN BOTH EYES SCH ×2 (09:24→20:52)
[2018-04-22] MEDS: HUMULIN N SUBQ SCH ×2 (09:25→20:50)
[2018-04-22] MEDS: MYCOSTATIN CREAM TOP SCH ×2 (09:32→20:51)
--- NOTE | 2018-04-22 14:36 | NEPHROLOGY PROGRESS NOTE ---
DATE: 04/22/2018 TIME SEEN: 0705. SUBJECTIVE: Mr. Vega is resting in bed. He is ventilator-dependent with sedation. OBJECTIVE: VITAL SIGNS: Temperature 98.9 degrees, blood pressure 126/77, heart rate 84, respirations are 12. He is on 40% FiO2, his last recorded saturation 98%. He has had 3056 in, 2050 out. LABORATORY DATA: Sodium 134, potassium 3.9, chloride 93, CO2 23, BUN 45, creatinine 4.5, glucose is 204, anion gap of 18, calcium 9.6, albumin 3. White count 17.68, hemoglobin 8.5, hematocrit 26.3 with a platelet count of 214,000. The patient has ABGs of 7.49 pH, CO2 29, PO2 133, bicarb 24.4 on 40% with a lactate of 2.3. Urinalysis has been sent down, positive leukocytes, proteinuria, hematuria and bacteria. PHYSICAL EXAMINATION: General: This is a 53-year-old male, resting in bed. He is ventilator-dependent with sedation. HEENT: Normocephalic, atraumatic. Conjunctivae pale. He has SANDRA. Mucous membranes dry. Neck: Supple. Trachea midline. Oral ET tube is in place. No evidence of JVD. Cardiovascular: Regular rate and rhythm. S4 is present. Lungs: Clear to auscultation bilaterally. Equal excursion. He is on ventilatory support. Abdomen: Round, soft, nontender. Positive bowel sounds. Patient is currently receiving Nepro at 45 mL an hour to NG tube, tolerating this well. Genitourinary: Not inspected. Patient has minimal out with dialysis assist. Extremities: Continues with dressing and splint in place to the left leg. No edema to the right lower. Neurological: As mentioned above. ASSESSMENT AND PLAN: 1. Acute kidney injury. Patient has had dialysis for 2 days straight. No indications for dialysis today. We will plan for dialysis again in the morning. 2. Electrolytes and acid-base balance. These remain acceptable with correction on dialysis. 3. Anemia. This is improved after 2 units of packed red blood cells infusion. 4. Sepsis to left knee. This is followed by Dr. Yan with the primary care. He is on renal dosed antibiotics. 5. Respiratory failure. This is followed by Pulmonology. I would like to thank you for allowing us to follow with this patient. Dictated by EUGENE Agee for Donell Cruz MD cc: EUGENE Agee MD M. Neel Roberts, MD
[2018-04-22] MEDS: PROTONIX IV SCH (20:49)
[2018-04-22] MEDS: LOVENOX SUBQ SCH (20:49)
[2018-04-22] MEDS: PATADAY 0.2% OPH SOLUTION BOTH EYES SCH (20:52)
[2018-04-23] MEDS: DUONEB (A & A) INH SCH ×6 (03:10→22:58)
[2018-04-23] MEDS: HUMULIN R SUBQ SCH ×6 (03:26→23:47)
[2018-04-23] MEDS: DIPRIVAN 1% 1,000 MG/100 ML BOTTLE IV SCH ×8 (03:26→22:33)
[2018-04-23 04:43] LABS: ALLEN TEST YES; BE -3.9 mmoll (-3.0-3.0); BLOOD TYPE ARTERIAL; HCO3-(ACT) 21.9 mmoll (20.0-26.0); METHB 1.3 % (0.0-1.5); O2(CT) 12.6 mL/dL (15.0-23.0); O2HB 96.2 % (95.0-99.0); PCO2(98.6) 44 mmHg (35-45); PO2(98.6) 103 mmHg (60-100); SAMPLE BLOOD; SAO2 99.1 % (95.0-100.0); SRATE 12 BPM; THB 9.2 g/dL (11.5-17.4); TVOL 600 mL; pH(98.6) 7.31 (7.35-7.45)
[2018-04-23 04:44] LABS: MODALITY VENTILATOR
[2018-04-23 05:40] LABS: HEMATOCRIT 24.8 % (42.0-52.0); HEMOGLOBIN 8.4 g/dL (14.0-18.0); MCH 29.5 PG (27-31); MCHC 33.9 g/dL (33-37); MPV 11.3 FL (7.4-10.4); RBC 2.85 XMIL (4.7-6.1); RDW 17.9 % (11.5-14.5); WBC 15.7 X1000 (4.8-10.8)
[2018-04-23 06:01] LABS: ALB/GLOB RATIO 0.7; CALCIUM 9.8 mg/dL (8.8-10.2); CREATININE 6.6 mg/dL (0.7-1.2); POTASSIUM 4.1 mmol/L (3.5-5.1); TOTAL BILIRUBIN 0.22 mg/dL (0.20-1.00); TOTAL PROTEIN 7.5 g/dL (6.3-8.3)
[2018-04-23] MEDS ORDERED: TIGHT: 0.2 ML/HR FOR DIALYSIS MISC PRN (06:40)
[2018-04-23] MEDS ORDERED: NS 2,000 ML MISC PRN (06:40)
[2018-04-23] MEDS ORDERED: HEPARIN IV PRN (06:40)
--- NOTE | 2018-04-23 06:55 | Diag Imaging Result Doc PS360 ---
EXAM: CHEST-PORTABLE 04/23/2018 HISTORY: ventilator pt TECHNIQUE: AP portable at 0502 COMMENT: There is an endotracheal tube with its tip at the thoracic inlet. There is an NG tube with its tip below the diaphragm. There is bibasilar opacity particularly in the left lower lobe which was also the case on 04/22/2018. There is also platelike atelectasis in the right upper lobe. These findings were all present previously. IMPRESSION: Bibasilar atelectasis versus pneumonia. Electronically signed by Jorge A Nunez 04/23/2018 6:52 AM
[2018-04-23] MEDS: MIRALAX PO SCH (08:48)
[2018-04-23] MEDS: HUMULIN N SUBQ SCH ×2 (08:56→20:24)
[2018-04-23] MEDS: COMBIGAN OPHTH SOLN BOTH EYES SCH ×2 (08:57→20:22)
[2018-04-23] MEDS: MYCOSTATIN CREAM TOP SCH ×2 (08:58→20:21)
--- NOTE | 2018-04-23 09:43 | PROGRESS NOTE ---
DATE: 04/23/2018 Mr. Vega is intubated. He appears sedated. He is undergoing dialysis at this time. Appears comfortable. OBJECTIVE: Vital Signs: Temp 99.1 degrees, pulse 86, respirations 14, blood pressure 123/78. HEENT: Pupils are equal and round. Lungs: Clear anterolateral. Cardiovascular: Regular rate without murmur or S3. Abdomen: Soft. Skin: Warm and dry. I should mention his chest x-ray, bibasilar atelectasis versus pneumonia. ASSESSMENT AND PLAN: 1. Acute respiratory failure, hypoxemia. He has been reintubated 2 different occasions and so I think they have agreed for placement of tracheostomy. Dr. No plans to do that on Wednesday. 2. Septic left knee. Severe sepsis. I think they removed the hardware, grew out MRSA, vancomycin dose after dialysis. Leukocytosis apparently is improving. [place] [id number]. 3. Acute renal failure, acute tubular necrosis and getting dialysis today. Dr. Cruz is following. 4. Insulin-dependent diabetes mellitus. He has had dialysis now. I think this is the third day. I do not think they dialyzed him yesterday. Electrolytes and acid base balance look good. REVIEW OF HIS ORDERS: I do not see any change. He is getting Olopatadine eyedrops 0.2% both eyes at bedtime. He is on Lovenox 30 mg subcutaneous q.24 hours. He gets Lasix 40 mg IV after he just got that after transfusion I believe and Ativan 1 mg IV q.4 hours p.r.n., Protonix 40 mg IV q.24 hours, MiraLAX 17 g daily, and then the vancomycin 1 g after dialysis. cc: MD Capri Covarrubias MD
--- NOTE | 2018-04-23 13:35 | NEPHROLOGY PROGRESS NOTE ---
DATE: 04/23/2018 SUBJECTIVE: Mr. Vega remains ventilator-dependent with sedation. OBJECTIVE: His most recent vital signs: His last temperature 99.1 degrees, blood pressure 99/54, heart rate 86, respirations 18. He is currently on 40% FiO2. His last recorded saturation 98%. He has had 2331 and 72 mL out to Stoner catheter. LABS: Sodium 131, potassium 4.1, chloride 90, CO2 19. BUN 66, creatinine 6.6, glucose 186. Anion gap of 22, calcium 9.8, albumin 3. White count 15.7, hemoglobin 8.4, hematocrit 24.8 with a platelet count of 200. ABGs: A pH of 7.31, CO2 44, PO2 103, bicarbonate 21.9. This is on 40% FiO2. PHYSICAL EXAMINATION: General: This is a 53-year-old male resting quietly in bed. He is ventilator-dependent with sedation. HEENT: Normocephalic, atraumatic. Conjunctiva is pale. He has SANDRA, although these are slightly dysconjugate. Mucous membranes are dry. Oral ET tube is in place. Neck: Supple. Trachea midline. He does have trace JVD. Cardiovascular: Regular rate and rhythm. He has an S4 that is present. Lungs: Clear to auscultation anterior with some expiratory wheezes. Ventilatory support. Abdomen: Soft, round, nontender. Positive bowel sounds. NG tube remains in place with Nepro infusing at 45 mL an hour. Genitourinary: Not Inspected. Minimal void with dialysis assist. Extremities: Continues with dressing and splint. There is some trace edema. Right lower extremity has no edema. Neurological: As mentioned above. ASSESSMENT AND PLAN: 1. Acute kidney injury. Patient has had no recovery. We will plan for dialysis today. We will place him on a 2 potassium bath. He is to dialyze for 3-1/2 hours. We will attempt to pull 2 to 3 liters of ultrafiltration as tolerated. 2. Electrolytes and acid-base balance with correction in anemia. This is low, but acceptable. 3. Sepsis with left knee. This is followed by Dr. Yan and the primary care team. He is on renal-dosed antibiotics. I would like to thank you for allowing us to follow with this patient. Dictated by EUGENE Agee for Donell Cruz MD cc: EUGENE Agee MD M. Neel Roberts, MD
[2018-04-23] MEDS ORDERED: VANCOMYCIN 1 GM/NS 1 GM/250 ML IVPB IV ONE (17:00)
--- NOTE | 2018-04-23 18:35 | GENERAL SURGERY PROGRESS NOTE ---
DATE: 04/23/2018 SUBJECTIVE: Nasal ventilator still has some perioral edema. No fevers, pulse in 90s, blood pressure 133/81. Endotracheal tube is in place. Neck with no anterior scars. Abdomen is soft. Integument warm dry. LABS: White count is 15, hematocrit 34. ABG 7.31, 44, 103, creatinine is 6.6. ASSESSMENT AND PLAN: 53-year-old gentleman who has respiratory failure. He is on dialysis. Plans for tracheostomy Dr. No on Wednesday. Will continue to monitor him closely while here. cc: MD Capri Villanueva MD
[2018-04-23] MEDS: LOVENOX SUBQ SCH (20:21)
[2018-04-23] MEDS: PROTONIX IV SCH (20:22)
[2018-04-23] MEDS: PATADAY 0.2% OPH SOLUTION BOTH EYES SCH (20:23)
[2018-04-24] MEDS: DIPRIVAN 1% 1,000 MG/100 ML BOTTLE IV SCH ×8 (01:29→23:59)
[2018-04-24] MEDS: DUONEB (A & A) INH SCH ×6 (03:11→22:52)
[2018-04-24] MEDS: HUMULIN R SUBQ SCH ×5 (04:01→22:04)
[2018-04-24 05:32] LABS: ALLEN TEST YES; BE -0.3 mmoll (-3.0-3.0); BLOOD TYPE ARTERIAL; HCO3-(ACT) 24.7 mmoll (20.0-26.0); METHB 1.5 % (0.0-1.5); O2(CT) 11.1 mL/dL (15.0-23.0); O2HB 95.9 % (95.0-99.0); PCO2(98.6) 46 mmHg (35-45); PO2(98.6) 94 mmHg (60-100); SAMPLE BLOOD; SRATE 12 BPM; THB 8.1 g/dL (11.5-17.4); TVOL 600 mL; pH(98.6) 7.35 (7.35-7.45)
[2018-04-24 05:34] LABS: MODALITY VENTILATOR
[2018-04-24 05:58] LABS: HEMATOCRIT 24.4 % (42.0-52.0); MCH 28.7 PG (27-31); MCHC 32.8 g/dL (33-37); MCV 87.5 FL (81-99); MPV 11.4 FL (7.4-10.4); RBC 2.79 XMIL (4.7-6.1); RDW 18.2 % (11.5-14.5); WBC 12.92 X1000 (4.8-10.8)
[2018-04-24 06:16] LABS: ALB/GLOB RATIO 0.6; CALCIUM 9.1 mg/dL (8.8-10.2); CREATININE 5.7 mg/dL (0.7-1.2); POTASSIUM 3.8 mmol/L (3.5-5.1); TOTAL BILIRUBIN 0.19 mg/dL (0.20-1.00); TOTAL PROTEIN 7.8 g/dL (6.3-8.3)
--- NOTE | 2018-04-24 07:08 | Diag Imaging Result Doc PS360 ---
EXAM: CHEST-PORTABLE 04/24/2018 HISTORY: ventilator pt TECHNIQUE: AP portable at 0511 COMMENT: There is an endotracheal tube with its tip at thoracic inlet. There is an NG tube which passes below the diaphragm. There is bibasilar opacity particularly in the left lower lobe which was also the case on 04/23/2018. There is platelike atelectasis in the right upper lobe. The inspiration is slightly less optimal than on the previous examination and this probably accounts for any difference in appearance. IMPRESSION: Bibasilar atelectasis versus pneumonia. Electronically signed by Jorge A Nunez 04/24/2018 7:05 AM
--- NOTE | 2018-04-24 08:27 | PROGRESS NOTE ---
DATE: 04/24/2018 SUBJECTIVE: Mr. Vega is on the ventilator sedated. OBJECTIVE: General: He was unresponsive, appears comfortable. Vitals: Temperature 99.2 degrees, pulse 85, respirations 16, blood pressure 119/67. Eyes: Pupils are equal. Neck: No distended neck veins. Lungs: Clear in anterolateral. Cardiovascular: Regular rhythm and rate without murmur or S3. Abdomen: Soft. Skin: Warm and dry. URINE OUTPUT: 7600 mL. IMAGING: His chest x-ray from this morning, bibasilar atelectasis versus pneumonia. ASSESSMENT AND PLAN: 1. The patient on the ventilator, respiratory failure. Plan is to do a tracheostomy I think Wednesday for long-term vent management. 2. Acute respiratory failure with hypoxemia. Reintubated on 2 different occasions. So, plan is tracheostomy tomorrow. 3. Septic left knee. Severe sepsis. Grew out MRSA. Continue his vancomycin after dialysis. 4. Acute tubular necrosis. Continue dialysis. Volume status, electrolytes look good. Acid-base looks good. 5. History of diabetes mellitus type 2. Continue to pattern his blood sugars. Blood sugars sequentially 176, 191, 201, 88. Review of his orders, I do not see any change. cc: MD Capri Covarrubias MD
[2018-04-24] MEDS: HUMULIN N SUBQ SCH ×2 (09:00→22:07)
[2018-04-24] MEDS: COMBIGAN OPHTH SOLN BOTH EYES SCH ×2 (09:00→22:05)
[2018-04-24] MEDS: MIRALAX PO SCH (09:01)
[2018-04-24] MEDS: MYCOSTATIN CREAM TOP SCH ×3 (09:01→22:05)
--- NOTE | 2018-04-24 10:45 | GENERAL SURGERY PROGRESS NOTE ---
DATE: 04/24/2018 SUBJECTIVE: He remains on stable ventilator settings. He is tolerating tube feeds. I reviewed his labs. I reviewed his x-ray. OBJECTIVE: On exam, he is sedated on the ventilator with endotracheal tube. Perioral edema seems to be improving some. ASSESSMENT AND PLAN: A 53-year-old gentleman with respiratory failure, end- stage renal disease. Plan for tracheostomy tomorrow. Will hold his tube feeds at midnight. I discussed with the nurse. Dr. Carmona will see him in the morning. cc: MD Capri Villanueva MD MTDD
--- NOTE | 2018-04-24 11:50 | NEPHROLOGY PROGRESS NOTE ---
DATE: 04/24/2018 TIME SEEN: 10:10. SUBJECTIVE: Mr. Vega is resting in bed. He remains ventilator dependent with sedation, requiring full ventilation. LABORATORY DATA: Sodium 132, potassium 3.8, chloride 90, CO2 of 22, BUN 54, creatinine 5.7, glucose of 188. His anion gap is 20, calcium 9.1, albumin 3. White count 12.92, hemoglobin 8, hematocrit 24.4, platelet count 190,000. Urinalysis is positive for yeast. ABGs: PH 7.35, CO2 of 46, PO2 of 94, bicarb 24.7 on 40% ventilatory support. OBJECTIVE: His most recent vital signs: His last temperature 99.2 degrees, blood pressure 105/60, heart rate 83, respirations 14, he is on 40% FiO2, last recorded saturation 95%. He has had 2059 in, 3897 out with 3.8 L on dialysis. General: This is a 53-year-old male, resting quietly in bed, ventilator dependent with sedation. HEENT: Normocephalic, atraumatic. Conjunctivae pale. SANDRA, although they are slightly dysconjugate. Mucous membranes are dry. Oral ET tube remains in place. Neck: Supple. Trachea midline. He continues with trace JVD. Cardiovascular: Regular rate and rhythm. S4 is present. Lungs: Clear to auscultation bilaterally. Equal excursion. Ventilatory support. Abdomen: Soft, nontender. Positive bowel sounds. The patient continues with tube feedings with Nepro at 45 mL an hour. It appears that this is ordered to be stopped at midnight for possible surgery in the a.m. Genitourinary: Not inspected. Minimal void with dialysis assist. Extremities: Continue with dressing and splint to the left leg. Trace edema to the right. Neurological: As mentioned above. ASSESSMENT AND PLAN: 1. Acute kidney injury. The patient has had no recovery. We will plan to dialyze the patient in the morning to get him back on a routine of Wednesday, Wednesday, Wednesday. If we need to, we can hold off in regards with his surgery for tracheostomy placement tomorrow, and plan for dialysis on Wednesday. 2. Electrolytes and acid-base balance. This is stable. 3. Anemia. This is acceptable. 4. Sepsis with left knee. Followed by Dr. Yan and the primary care team. 5. Possible tracheostomy for respiratory failure. This is being followed by Surgery and Pulmonology. I would like to thank you for allowing us to follow with this patient. Dictated by EUGENE Agee for Donell Cruz MD cc: EUGENE Agee MD M. Neel Roberts, MD
[2018-04-24] MEDS: D50W SYRINGE IV PRN (16:07)
[2018-04-24] MEDS: PROTONIX IV SCH (22:05)
[2018-04-24] MEDS: LOVENOX SUBQ SCH (22:05)
[2018-04-24] MEDS: PATADAY 0.2% OPH SOLUTION BOTH EYES SCH (22:07)
[2018-04-25] MEDS: HUMULIN R SUBQ SCH ×7 (00:49→23:45)
[2018-04-25] MEDS: DIPRIVAN 1% 1,000 MG/100 ML BOTTLE IV SCH ×7 (02:19→23:45)
[2018-04-25] MEDS: DUONEB (A & A) INH SCH ×6 (02:52→22:42)
[2018-04-25 04:56] LABS: ALLEN TEST YES; BE -3.5 mmoll (-3.0-3.0); BLOOD TYPE ARTERIAL; HCO3-(ACT) 22.2 mmoll (20.0-26.0); METHB 1.5 % (0.0-1.5); O2(CT) 12.4 mL/dL (15.0-23.0); O2HB 94.9 % (95.0-99.0); PCO2(98.6) 45 mmHg (35-45); PO2(98.6) 90 mmHg (60-100); SAMPLE BLOOD; SRATE 12 BPM; THB 9.2 g/dL (11.5-17.4); TVOL 600 mL; pH(98.6) 7.31 (7.35-7.45)
[2018-04-25 05:02] LABS: MODALITY VENTILATOR
[2018-04-25 05:57] LABS: HEMATOCRIT 24.3 % (42.0-52.0); HEMOGLOBIN 8.2 g/dL (14.0-18.0); MCH 29.5 PG (27-31); MCHC 33.7 g/dL (33-37); MCV 87.4 FL (81-99); MPV 11.2 FL (7.4-10.4); RBC 2.78 XMIL (4.7-6.1); RDW 18.1 % (11.5-14.5); WBC 10.38 X1000 (4.8-10.8)
[2018-04-25 06:26] LABS: PROTIME 14.1 Seconds (11.0-16.0)
[2018-04-25 06:27] LABS: PTT 40.6 Seconds (22.3-41.8)
[2018-04-25 06:35] LABS: ALB/GLOB RATIO 0.6; CALCIUM 10.3 mg/dL (8.8-10.2); CREATININE 7.8 mg/dL (0.7-1.2); POTASSIUM 4.3 mmol/L (3.5-5.1); TOTAL BILIRUBIN 0.19 mg/dL (0.20-1.00)
--- NOTE | 2018-04-25 07:51 | Diag Imaging Result Doc PS360 ---
EXAM: CHEST-PORTABLE INDICATION: ventilator pt TECHNIQUE: One view COMPARISON: 04/24/2018 FINDINGS: Support tubes and lines are in stable positions. Bibasilar atelectasis and/or infiltrate is again noted. There appears to have been slight improvement at the right lung base. Right upper lobe mild atelectasis is unchanged. No new consolidation is identified. Cardiac silhouette is stable. IMPRESSION: Slight improvement of atelectasis at the right lung base. Stable chest, otherwise. Electronically signed by Carlos Bray 04/25/2018 7:49 AM
[2018-04-25] MEDS: D50W SYRINGE IV PRN (08:19)
--- NOTE | 2018-04-25 08:29 | GENERAL SURGERY PROGRESS NOTE ---
DATE: 04/25/2018 SUBJECTIVE: Discussed case with nurse,no major changes. I discussed the case with Dr. Carroll. He wants a PEG tube added. We have gotten consent from the family. OBJECTIVE: Vital Signs: Patient is currently afebrile. Vital signs have been stable. General: Exam sedated on the ventilator. Cardiovascular: Regular rate and rhythm lungs referred airway noises. Abdomen: Soft, nontender, nondistended. No surgical scars in the upper abdomen appreciated. LABORATORY: White blood cell count 10, hematocrit 24, platelet count 215,000. ABG reviewed. ASSESSMENT AND PLAN: A 53-year-old gentleman with acute respiratory failure, malnutrition and acute renal failure. 1. Acute respiratory failure. At this time, patient has been having prolonged intubation, needs a tracheostomy. He has had multiple intubations and extubations and has angioedema which makes things difficult. We will plan on placement of trach. The risks, benefits, and alternatives were discussed with the family. Risks including, but not limited to bleeding, infection, risk of damage to trachea, risk of loss of airway discussed. We will plan on intervention. 2. Malnutrition. At this time patient with angioedema, oropharynx issues. Needs percutaneous endoscopic gastrostomy tube. We will attempt it during the time of tracheostomy after we do the trach. Consent was obtained from the family. 3. Acute renal failure. At this time, patient does have access in his groin. We will monitor him. cc: MD Capri Velasquez MD
[2018-04-25] MEDS ORDERED: SENSORCAINE 0.5%-EPI 1:200,000 ONE (08:32)
[2018-04-25] MEDS ORDERED: LUBRIFRESH PM OPH OINTMENT ONE (08:56)
[2018-04-25] MEDS ORDERED: NEOSPORIN OINTMENT PACKET ONE (08:59)
[2018-04-25] MEDS ORDERED: NORCURON ONE ×2 (09:08→09:30)
[2018-04-25] MEDS ORDERED: DECADRON ONE (09:09)
[2018-04-25] MEDS ORDERED: SOLU-MEDROL IV ONE (10:38)
--- NOTE | 2018-04-25 10:39 | OPERATIVE NOTE ---
PROCEDURE DATE: 04/25/2018 PREOPERATIVE DIAGNOSES: 1. Acute respiratory failure requiring prolonged intubation with angioedema. 2. Malnutrition. POSTOPERATIVE DIAGNOSES: 1. Acute respiratory failure requiring prolonged intubation with angioedema. 2. Malnutrition. 3. Duodenal polyp. PROCEDURES: 1. Tracheostomy (#8 Shiley nonfenestrated cuffed). 2. Esophagogastroduodenoscopy with biopsy of duodenal polyp. SURGEON: David No MD STAKE DRIVER: None. ANESTHESIA: General endotracheal. FINDINGS: On EGD, there was a friable duodenal polyp and a lot of angioedema. I did not think we could easily get a PEG tube through the angioedema and the throat and want to follow with a biopsy of the polyp before committing him to a PEG tube. BRIEF HISTORY: A 53-year-old gentleman with multiple intubations causing angioedema. He has had respiratory failure. He also needed a PEG tube. The risks, benefits, and alternatives were discussed with the family. Consent was obtained. DESCRIPTION OF PROCEDURE: After informed consent was obtained, the patient was brought intubated from the ICU to the operating theatre, transferred to the operative table. The patient remained intubated the entire time. He did not lose his O2 sats. The neck was prepped and draped in sterile fashion after a formal time-out confirming patient and procedure. We turned our attention to the neck. We made an incision above the sternal notch, carried down through the tissue. There was some bleeding vein that we had to suture ligate. We also encountered the isthmus of the thyroid. It was somewhat enlarged, but we were able to dissect through it to identify the trachea. We found the 2nd and 3rd tracheal rings and placed a stay stitch around either side of it, made an H-type incision and then entered the trachea. We slowly withdrew the ET tube under visualization and inserted the tracheostomy, connected it to the ventilator. We had persistent end-tidal CO2. His O2 sats did not drop during the procedure. He did well during the procedure. We secured it in place in a standard fashion. We then turned our attention to the EGD. We placed an oral bite block, I inserted the EGD scope. There was a significant amount of edema in his oropharynx, making it difficult but we were able to get through the esophagus, passed into the stomach. We then passed into the duodenum. We found a duodenal polyp that was very friable. I was concerned about the potential for this and the difficulty with getting a PEG tube flange through the edema, so I elected to do a biopsy of the duodenal polyp and hold off on the PEG tube. We did this with a forceps, took good samples. We then withdrew the scope. We did retroflex, I did not see a hiatal hernia. We withdrew the scope, brought it out. We then completed the procedure. The patient tolerated the procedure well, was transferred back to the ICU room. cc: MD Capri Velasquez MD
[2018-04-25] MEDS: MIRALAX PO SCH (10:51)
--- NOTE | 2018-04-25 10:52 | Diag Imaging Result Doc PS360 ---
EXAM: CHEST-PORTABLE - 04/25/2018 HISTORY: NGT placement TECHNIQUE: Portable exam for nasogastric tube placement COMPARISON: None. FINDINGS: The distal tip of the nasogastric tube is at the expected location of the distal stomach or duodenal bulb. IMPRESSION: Nasogastric tube tip in distal stomach or duodenal bulb. Electronically signed by Richard Gregg 04/25/2018 10:49 AM
[2018-04-25] MEDS: HUMULIN N SUBQ SCH ×2 (10:59→20:57)
[2018-04-25] MEDS: COMBIGAN OPHTH SOLN BOTH EYES SCH ×2 (11:00→20:58)
--- NOTE | 2018-04-25 13:11 | PROGRESS NOTE ---
DATE: 04/25/2018 SUBJECTIVE DATA: Mr. Vega is on a propofol drip. He just recently went for a tracheostomy placement. He is nonresponsive. OBJECTIVE DATA: He is on the ventilator and now has a tracheostomy in place. His current dressing did have quite a bit of serosanguineous drainage. I took everything down today. He does have some good beefy granulation tissue. He does also have some areas of slough that may need to be debrided at some point. Overall, not a lot of drainage. His girish have been removed. ASSESSMENT: Septic left knee. PLAN: He did have his tracheostomy placed today. It does look like the plan is for him to get a PEG tube placed at some point. Overall, the knee looks okay. There is still a little bit of drainage but it looks serosanguineous. Otherwise, he has got some good tissue. I do not see any exposure at all to the joint. He does have a little area of slough. Hopefully, the Vashe wet-to- dry dressings can take care of that. Eventually, that area may need to be debrided again to promote further wound healing. Hopefully, we might could even do that at the bedside. We will continue to follow him while he is in the hospital. He is getting vancomycin with his dialysis treatments. Dr. Yan is out this week and please get in touch with Glory or one of the on-call physician for DOC. Dictated by EUGENE Gordillo for Jasson Yan MD cc: EUGENE Gordillo MD M. Neel Roberts, MD
--- NOTE | 2018-04-25 15:28 | NEPHROLOGY PROGRESS NOTE ---
DATE: 04/25/2018 TIME SEEN: 07 SUBJECTIVE: Mr. Vega remains ventilator dependent. He is sedated. OBJECTIVE: His most recent vital signs temperature 98.2 degrees, blood pressure 93/50, heart rate 78, respirations 14, he remains on 40% FiO2. His last recorded saturation is 100%, he has had 1731 in, 72 mL out. LAB: Sodium 136, potassium 4.3, chloride 91, CO2 20, BUN 80, creatinine 7.8, glucose 75, anion gap is 25, calcium 10.3, albumin is 3, white count 10.38, hemoglobin 8.2, hematocrit 24.3 with a platelet count of 215,000. His pro time is 14.1, INR of 1, PTT 40.6. ABGs pH 7.31, CO2 45, PO2 90, bicarb 22.2 on 40% FiO2. PHYSICAL EXAM: This is a 53-year-old male resting quietly in bed ventilator dependent with sedation. He appears in no acute distress. Skin is warm and dry.HEENT: Normocephalic, atraumatic. Conjunctiva is pale pink, he has SANDRA. Mucous membranes are dry. Neck: Supple, trachea shows trace JVD. Cardiovascular: He is regular rate and rhythm. S4 is present. Lungs: Clear to auscultation bilateral, equal excursion, ventilatory support. Abdomen: Soft, nontender. Positive bowel sounds. Genitourinary: Minimal urine output with dialysis assist. Extremities: Continues with a brace and dressing to his left knee, trace edema to the right lower extremity. Neurological: As mentioned above. ASSESSMENT AND PLAN: 1. Acute kidney injury. Patient has had no recovery. Patient is due for dialysis in the a.m. We will hold today and plan for treatment per his electrolytes. 2. Electrolytes and acid-base balance. These have been acceptable with correction on dialysis. 3. Anemia. This is acceptable after transfusion last week. 4. Sepsis with left knee followed by Dr. Yan with the primary care team. 5. Respiratory failure. Patient is due for tracheostomy today. His tube feedings have been held last night. We will plan for dialysis after this has been completed for the a.m. Like to thank you for allowing us to follow with this patient. Dictated by EUGENE Agee for Donell Cruz MD cc: EUGENE Agee MD M. Neel Roberts, MD
--- NOTE | 2018-04-25 17:33 | PROGRESS NOTE ---
DATE: 04/25/2018 SUBJECTIVE: Mr. Vega remains ventilator dependent. Dr. No placed a tracheostomy, and EGD with biopsy of a duodenal polyp. ABGs demonstrated a pH of 7.31, pCO2 45, pO2 90, and O2 saturation 98%. He is on a spontaneous rate of 12, FiO2 40%, tidal volume 600, and PEEP of 5. Chest x-ray shows persistent infiltrates. Renal function continues to slow if any improvement. His BUN and creatinine were 80 and 7.8. He is undergoing dialysis per Dr. Cruz. Blood sugars are consistently below 200. OBJECTIVE: Vital Signs: Temperature 99.2 degrees, pulse 84, respirations 16, blood pressure 105/60. Cardiovascular: Regular rate and rhythm. Lungs: Faint crackles in the bases bilaterally. Abdomen: Soft, nontender, with active bowel sounds. No hepatosplenomegaly. No abdominal bruits. ASSESSMENT AND PLAN: 1. Septic left knee with severe sepsis. We will continue vancomycin. Given the infected hardware, he will in all likelihood require vancomycin for 6 to 8 weeks. He most likely has sustained an acute tubular necrosis secondary to the sepsis. He will continue to undergo dialysis as per Dr. Cruz. 2. Acute respiratory failure with aspiration pneumonia. We will continue broad-spectrum antibiotics, ventilatory support and DuoNeb nebulizer treatments. He has been reintubated twice. Hopefully we can now begin to wean down on the vent and if able, to extubate. We know that his airway is protected by the tracheostomy. 3. Type 2 insulin-dependent diabetes mellitus. We will continue NPH insulin as ordered. cc: Capri Rossi MD
[2018-04-25] MEDS ORDERED: BENADRYL PO SCH (17:45)
[2018-04-25] MEDS: BENADRYL LIQUID NG SCH ×2 (18:34→21:00)
[2018-04-25] MEDS: PROTONIX IV SCH (20:56)
[2018-04-25] MEDS: LOVENOX SUBQ SCH (20:57)
[2018-04-25] MEDS: MYCOSTATIN CREAM TOP SCH (20:58)
[2018-04-25] MEDS: PATADAY 0.2% OPH SOLUTION BOTH EYES SCH (20:59)
[2018-04-26] MEDS: BENADRYL LIQUID NG SCH ×4 (01:32→19:54)
[2018-04-26] MEDS: DUONEB (A & A) INH SCH ×6 (02:58→23:17)
[2018-04-26] MEDS: DIPRIVAN 1% 1,000 MG/100 ML BOTTLE IV SCH ×2 (03:26→06:30)
[2018-04-26] MEDS: HUMULIN R SUBQ SCH ×6 (03:35→23:09)
[2018-04-26 04:36] LABS: ALLEN TEST YES; BE -6.2 mmoll (-3.0-3.0); BLOOD TYPE ARTERIAL; HCO3-(ACT) 20.1 mmoll (20.0-26.0); METHB 0.4 % (0.0-1.5); MODALITY VENTILATOR; O2(CT) 8.2 mL/dL (15.0-23.0); O2HB 97.3 % (95.0-99.0); PCO2(98.6) 40 mmHg (35-45); PO2(98.6) 101 mmHg (60-100); SAMPLE BLOOD; SAO2 99.4 % (95.0-100.0); SRATE 12 BPM; THB 5.8 g/dL (11.5-17.4); TVOL 600 mL
[2018-04-26 06:12] LABS: HEMATOCRIT 22.9 % (42.0-52.0); HEMOGLOBIN 7.8 g/dL (14.0-18.0); MCH 29.5 PG (27-31); MCHC 34.1 g/dL (33-37); MCV 86.7 FL (81-99); MPV 11.1 FL (7.4-10.4); RBC 2.64 XMIL (4.7-6.1); RDW 18.2 % (11.5-14.5); WBC 11.26 X1000 (4.8-10.8)
[2018-04-26 06:47] LABS: ALB/GLOB RATIO 0.6; ALBUMIN 2.9 g/dL (3.5-5.0); CALCIUM 9.2 mg/dL (8.8-10.2); CREATININE 8.5 mg/dL (0.7-1.2); POTASSIUM 4.4 mmol/L (3.5-5.1); TOTAL BILIRUBIN 0.2 mg/dL (0.20-1.00); TOTAL PROTEIN 7.8 g/dL (6.3-8.3)
[2018-04-26] MEDS ORDERED: TIGHT: 0.2 ML/HR FOR DIALYSIS MISC PRN (07:05)
[2018-04-26] MEDS ORDERED: HEPARIN IV PRN (07:05)
[2018-04-26] MEDS ORDERED: NS 2,000 ML MISC PRN (07:05)
--- NOTE | 2018-04-26 07:42 | Diag Imaging Result Doc PS360 ---
CHEST-PORTABLE - 04/26/2018 INDICATION: ventilator pt COMPARISON: 04/25/2018 FINDINGS: There is a new tracheostomy tube in good position. Stable nasogastric tube. Stable bibasilar airspace opacifications most likely atelectasis. No new infiltrates. Heart size remains top normal. IMPRESSION: New tracheostomy tube. Otherwise no change from prior. Electronically signed by Neel Ramírez 04/26/2018 7:40 AM
--- NOTE | 2018-04-26 08:03 | PROGRESS NOTE ---
DATE: 04/26/2018 SUBJECTIVE: Mr. Vega is resting comfortably. He is still on a propofol drip. He is postoperative day #1 following tracheostomy placement. Blood gases demonstrate a pH of 7.3, pCO2 of 40, PO2 of 101, and an O2 saturation of 99%. His chest x-ray still shows minimal infiltrate in the right base. He is tolerating tube feedings without any significant residuals. He does have a history of type 2 insulin-dependent diabetes mellitus. The DKA has resolved. His blood sugars are ranging from 130 to 202. They were unable to place a PEG tube because of a gastric polyp. Pathology is pending. OBJECTIVE: Vital Signs: He is afebrile, pulse 86, respiratory rate 12, BP 101/53. CV: Regular rate and rhythm. Lungs: Crackles in the bases bilaterally. Abdomen: Soft, nontender, with active bowel sounds. Extremities: Without edema. LABORATORY DATA: Various laboratory studies were obtained. BMP demonstrated the following: Sodium 129, potassium 4.4, chloride 84, BUN 95, creatinine 8.5, and glucose 130. ASSESSMENT AND PLAN: 1. Acute respiratory failure with hypoxia, requiring re-intubation secondary to aspiration pneumonia, now with a tracheostomy. 2. Metabolic encephalopathy secondary to acute respiratory failure with severe sepsis, complicated by acute renal failure. 3. Acute renal failure secondary to acute tubular necrosis, requiring hemodialysis. 4. Mild protein calorie malnutrition. Mr. Vega has a tracheostomy. He is maintaining good oxygenation on the ventilator. Hopefully, we can continue to wean down on the ventilator as tolerated. He does have a septic left knee. Cultures grew out methicillin-resistant staphylococcus aureus. He is getting vancomycin after dialysis. He is still maintaining his blood pressure without pressors. He will most likely need intravenous vancomycin for 6 to 8 weeks. His angioedema has improved on Benadryl. Given the recent angioedema, he will most likely need percutaneous endoscopic gastrostomy tube placement for tube feedings. Given that he will need chronic intravenous antibiotics for 6 to 8 weeks, and may have a prolonged ventilatory course, we will consult Case Management to arrange for assessment for the long-term acute care unit. cc: Capri Rossi MD
--- NOTE | 2018-04-26 08:04 | GENERAL SURGERY PROGRESS NOTE ---
DATE: 04/26/2018 SUBJECTIVE: The patient underwent trach and did fine. His respiratory status has been good. He has had just a little bit of bleeding around the tracheostomy site, but otherwise has been doing fine. We did find a duodenal polyp on EGD. Given the fact that he had edema in his oropharynx and he had this polyp, I decided to hold off on the PEG tube. Once we get the pathology back and he gets a little bit of the swelling down, we could take him back and try to do a PEG on him at that point, but otherwise continue current treatment. cc: MD Capri Velasquez MD
[2018-04-26] MEDS: DIFLUCAN 100 MG/NS 100 MG/50 ML IVPB IV SCH (08:25)
[2018-04-26] MEDS ORDERED: TYLENOL LIQUID NG ONE (09:41)
[2018-04-26] MEDS: MYCOSTATIN CREAM TOP SCH ×2 (09:45→21:26)
[2018-04-26] MEDS: HUMULIN N SUBQ SCH ×2 (09:45→21:26)
[2018-04-26] MEDS: COMBIGAN OPHTH SOLN BOTH EYES SCH ×2 (09:45→21:25)
[2018-04-26] MEDS: MIRALAX PO SCH (09:46)
[2018-04-26] MEDS: MORPHINE IV PRN ×3 (12:06→23:40)
--- NOTE | 2018-04-26 12:46 | PROGRESS NOTE ---
DATE: 04/26/2018 SUBJECTIVE DATA: Mr. Vega is lying comfortably, on Diprivan. He was not responsive today. OBJECTIVE DATA: On left lower extremity examination, I did remove the dressing that was in place. There was some serosanguineous drainage. He does still have some good beefy tissue to most of that wound. He did have some areas of slough so I did an excisional debridement with forceps and a scalpel. The wound size was 4 cm x 6 cm x 1.5 cm in depth. We did get down to some good bleeding tissue. There is another wound more laterally. That was full of slough even down to a 2 cm level. There was an area that tracked to the other wound as well. The patient was responsive to pain during the debridement. He was given pain medicine. ASSESSMENT: Status post left irrigation and debridement of left total knee. PLAN: We are going to try and put a wound VAC on today. I did have the wound care nurse come down to assess and she is in agreement. There is no surrounding erythema or drainage. He did have some good bleeding tissue and good granulation tissue in the base. We are going to see if VAC'ing that area can help promote some good granulation tissue. We will take it down most likely on and will be in wound care. Nurse is going to reassess it. We will just see how everything does. Dictated by EUGENE Gordillo for Jasson Yan MD cc: EUGENE Gordillo MD M. Neel Roberts, MD
--- NOTE | 2018-04-26 13:27 | NEPHROLOGY PROGRESS NOTE ---
DATE: 04/26/2018 TIME SEEN: 0745 SUBJECTIVE: Mr. Vega is resting quietly in bed. He is ventilator dependent. He is sedated. OBJECTIVE: Vital Signs: Temperature 98.1 degrees, blood pressure 119/70, heart rate 89, respirations 21, he currently has a tracheostomy at this point secondary to surgery yesterday remains on 40% FiO2. He has had 1696 in, he has had 111 out to Stoner catheter. LAB: Sodium 129, potassium 4.4, chloride 84, CO2 16, BUN 95, creatinine 8.5, glucose 130, anion gap 29, calcium 9.2, albumin 2.9, white count 11.26, hemoglobin 7.8, hematocrit 22.9, platelet count 225,000. ABGs pH 7.3, CO2 40, PO2 101, bicarb 20.1 on 40% FiO2. PHYSICAL EXAM: This is a 53-year-old male resting quietly in bed ventilator dependent with sedation.HEENT: Normocephalic, atraumatic. Conjunctiva is pale pink. He has SANDRA. Mucous membranes are dry. Neck: Supple, trachea midline. Tracheostomy remains in place. He is attached to ventilator for support. Unable to determine JVD secondary to tracheostomy ties. Cardiovascular: He is regular rate and rhythm. He has an S4 that is present. Lungs: Diminished breath sounds posterior bases otherwise clear to auscultation anterior with respiratory support. Abdomen: Soft, nontender, positive bowel sounds. PEG tube intact. Remains on Tube Feedings. Genitourinary: Minimal urine out, he has dialysis with assist. Extremities: Continue with brace and splint to the left knee, trace edema. No edema to the right lower extremity. Neurologic: As mentioned above. ASSESSMENT AND PLAN: 1. Acute kidney injury. Patient has had no recovery, due for dialysis today. We will place him on a 2 K bath. He is to dialyze for 3-1/2 hours. We will attempt to pull 2-3 L of ultrafiltration. We will discuss exchange to perma-cath as we get closer to discharge. 2. Electrolytes and acid-base balance. Patient has an elevated anion gap with a drop in his CO2 again with correction on dialysis. 3. Anemia. This has been slowly dropping over the last several days status post transfusion last week. No indications for intervention at this time. 4. Respiratory failure. Patient has had a tracheostomy completed yesterday with attempts for possible wean, this is followed by pulmonology. 5. Sepsis to left knee followed by Dr. Yan and the primary care team. Like to thank you for allowing us to follow with this patient. Dictated by EUGENE Agee for Donell Cruz MD cc: EUGENE Agee MD M. Neel Roberts, MD [facility]
[2018-04-26] MEDS ORDERED: VANCOMYCIN 1 GM/NS 1 GM/250 ML IVPB IV ONE (17:00)
[2018-04-26] MEDS: PATADAY 0.2% OPH SOLUTION BOTH EYES SCH (21:24)
[2018-04-26] MEDS: PROTONIX IV SCH (21:25)
[2018-04-26] MEDS: SODIUM CHLORIDE 0.9% INJ SCH (21:26)
[2018-04-26] MEDS: LOVENOX SUBQ SCH (21:26)
[2018-04-27] MEDS: BENADRYL LIQUID NG SCH ×4 (02:15→21:13)
[2018-04-27] MEDS: DUONEB (A & A) INH SCH ×6 (03:29→22:46)
[2018-04-27] MEDS: HUMULIN R SUBQ SCH ×5 (04:43→21:16)
[2018-04-27 04:50] LABS: ALLEN TEST YES; BE 0.3 mmoll (-3.0-3.0); BLOOD TYPE ARTERIAL; HCO3-(ACT) 25.2 mmoll (20.0-26.0); METHB 1.6 % (0.0-1.5); MODALITY COOL AEROSOL; O2(CT) 7.6 mL/dL (15.0-23.0); O2HB 95.5 % (95.0-99.0); PCO2(98.6) 47 mmHg (35-45); PO2(98.6) 93 mmHg (60-100); SAMPLE BLOOD; SAO2 100.3 % (95.0-100.0); THB 5.5 g/dL (11.5-17.4); pH(98.6) 7.35 (7.35-7.45)
[2018-04-27 05:37] LABS: HEMATOCRIT 24.4 % (42.0-52.0); HEMOGLOBIN 8.3 g/dL (14.0-18.0); MCH 29.7 PG (27-31); MCV 87.5 FL (81-99); MPV 10.6 FL (7.4-10.4); RBC 2.79 XMIL (4.7-6.1); RDW 18.6 % (11.5-14.5); WBC 9.85 X1000 (4.8-10.8)
[2018-04-27 06:17] LABS: ALB/GLOB RATIO 0.6; ALBUMIN 3.1 g/dL (3.5-5.0); CALCIUM 9.6 mg/dL (8.8-10.2); CREATININE 6.1 mg/dL (0.7-1.2); POTASSIUM 3.5 mmol/L (3.5-5.1); TOTAL BILIRUBIN 0.27 mg/dL (0.20-1.00); TOTAL PROTEIN 8.4 g/dL (6.3-8.3)
[2018-04-27] MEDS: MORPHINE IV PRN ×2 (06:26→12:37)
--- NOTE | 2018-04-27 06:55 | GENERAL SURGERY PROGRESS NOTE ---
DATE: 04/27/2018 Patient seems to be doing okay. He is now on trach collar. It looks like some of the edema around his mouth has improved. He is breathing fine, at this point, may want to monitor him for few days before considering placement of the PEG tube to see if he actually needs it. Pathology on the duodenal biopsy did not show anything look like malignancy, so we could potentially place it but, again, would like to see how he does the next couple days. cc: MD Capri Velasquez MD
--- NOTE | 2018-04-27 07:24 | PROGRESS NOTE ---
DATE: 04/27/2018 SUBJECTIVE: Mr. Vega is breathing comfortably on 40% oxygen via the trach tube. Blood gases this morning demonstrated a pH of 7.35, pCO2 of 47, PO2 of 93, and an O2 saturation of 100%. He is tolerating tube feedings with little residual. Blood sugars are ranging from 92 to 164. Urine output is still at a minimum. He has been having frequent episodes of diarrhea through the night. OBJECTIVE: Vital signs: Temperature 99.1 degrees, pulse 91, respiratory rate 13, BP 110/69. Cardiovascular: Regular rate and rhythm. Lungs: Faint crackles in the bases bilaterally. Abdomen: Soft, nontender, with active bowel sounds. Extremities: Without edema. Neuro: He seems much more awake and alert. He aroused to verbal stimuli. He followed simple commands. He moves all extremities grossly. LABS: Various laboratory studies were obtained. A CBC demonstrated a white count of 9.8, hemoglobin 8.3, hematocrit 24.4, and a platelet count of 248,000. Electrolytes demonstrated the following, sodium 134, potassium 3.5, chloride 90, BUN 66, creatinine 6.1. ASSESSMENT AND PLAN: 1. Acute respiratory failure secondary to aspiration pneumonia, resolved. He now has a trach collar in place and is breathing comfortably on 40% oxygen. 2. Septic left knee with severe sepsis complicated by acute renal failure due to acute tubular necrosis. He will need IV antibiotics for 6 to 8 weeks. We will continue to dose him with vancomycin with dialysis. He underwent a local debridement of the knee yesterday. 3. Malnutrition. He has mild protein calorie malnutrition. We will continue tube feedings. We are hoping to proceed with placement of a PEG tube for long-term nutritional needs. 4. Angioedema. He has less lip swelling and we will continue Benadryl p.r.n. 5. Acute renal failure secondary to acute tubular necrosis. Unfortunately, his urine output is at a minimum. He does not seem to have recovered his renal function. It appears that he will need dialysis for the foreseeable future. 6. Anemia of chronic disease. His blood counts were low but given the fact that he had normal blood pressure and was not tachycardic, I do not believe that he requires a transfusion today. cc: Capri Rossi MD
--- NOTE | 2018-04-27 07:54 | Diag Imaging Result Doc PS360 ---
EXAM: CHEST-PORTABLE INDICATION: ventilator pt TECHNIQUE: One view COMPARISON: 04/26/2018 FINDINGS: Tracheostomy tube and NG tube are in stable positions. Linear opacities in the mid and lower lung zones likely representing atelectasis are stable. No new consolidation is identified. Cardiac silhouette is stable. IMPRESSION: Stable chest. Electronically signed by Carlos Bray 04/27/2018 7:52 AM
[2018-04-27] MEDS: DIFLUCAN 100 MG/NS 100 MG/50 ML IVPB IV SCH (08:27)
[2018-04-27] MEDS: HUMULIN N SUBQ SCH ×2 (08:29→21:14)
[2018-04-27] MEDS: COMBIGAN OPHTH SOLN BOTH EYES SCH ×2 (08:30→21:14)
[2018-04-27] MEDS: MYCOSTATIN CREAM TOP SCH ×2 (08:30→21:14)
[2018-04-27] MEDS: MIRALAX PO SCH (08:31)
--- NOTE | 2018-04-27 14:50 | NEPHROLOGY PROGRESS NOTE ---
DATE: 04/27/2018 DATE SEEN: 04/27/2018. TIME SEEN: 07:30. SUBJECTIVE: Mr. Vega is resting quietly in bed. He has been extubated. He is on a cool aerosol trach collar. He is responding appropriately, not sedated. OBJECTIVE: Vital Signs: His most recent vital signs. Temperature 98.1 degrees, blood pressure 122/75, heart rate 90, respirations are actually 10. He is on cool aerosol. He has had 1582 in and 855 mL out. His saturation is at 94% on the monitor. General: This is a 53-year-old male resting quietly in bed. He is in no acute distress. Skin: Warm and dry. He appears chronically ill. HEENT: Normocephalic, atraumatic. Conjunctivae are pale pink. He has SANDRA. Mucous membranes are dry. Neck: Supple. Trachea midline. Tracheostomy remains in place with cool aerosol collar in place. Cardiovascular: He is regular rate and rhythm. S4 is present. Unable to determine JVD with the tracheostomy ties in place. Lungs: Diminished breath sounds bilaterally. Equal excursion. He is on 40% trach collar. He continues with tube feedings per Nepro at 45 mL an hour. Abdomen: Soft, nontender. PEG tube remains intact. No drainage present. Genitourinary: Not inspected. Minimal void with dialysis assist. Extremities: Continues with a brace/splint to the left knee. Continues with trace edema, left greater than right. Neurological: As above. LABORATORY DATA: Sodium 134, potassium 3.5, chloride 90, CO2 of 22, BUN 66, creatinine 6.1, glucose 82, anion gap 22, calcium 9.6, albumin 3.1. White count 9.85, hemoglobin is 8.3, hematocrit 24.4, with a platelet count of 248. ASSESSMENT AND PLAN: 1. Acute kidney injury. The patient has had no recovery requiring dialysis. We will place him on a dialysis in the a.m. No indications for acute intervention today. He tolerated dialysis well yesterday. 2. Electrolytes and acid-base balance. The patient remains with an elevated anion gap, though stable. 3. Anemia. The patient has a hemoglobin of 8.3. No indications for intervention. 4. Respiratory failure. Patient has been extubated. He is currently on a 40% trach collar. He is tolerating this well. 5. Sepsis. He continues to be followed by Dr. Yan and the primary care team. I would like to thank you for allowing us to follow with this patient. Dictated by EUGENE Aege for Donell Cruz MD cc: EUGENE Agee MD M. Neel Roberts, MD
[2018-04-27] MEDS: PROTONIX IV SCH (21:13)
[2018-04-27] MEDS: LOVENOX SUBQ SCH (21:13)
[2018-04-27] MEDS: PATADAY 0.2% OPH SOLUTION BOTH EYES SCH (21:15)
[2018-04-28] MEDS: MORPHINE IV PRN ×4 (00:29→16:43)
[2018-04-28] MEDS: HUMULIN R SUBQ SCH ×7 (00:37→23:52)
[2018-04-28] MEDS: BENADRYL LIQUID NG SCH ×4 (01:59→20:23)
[2018-04-28] MEDS: DUONEB (A & A) INH SCH ×6 (03:10→23:01)
[2018-04-28] MEDS: D50W SYRINGE IV PRN ×2 (03:30→07:49)
[2018-04-28 04:53] LABS: ALLEN TEST YES; BLOOD TYPE ARTERIAL; HCO3-(ACT) 22.6 mmoll (20.0-26.0); METHB 0.5 % (0.0-1.5); O2(CT) 11.8 mL/dL (15.0-23.0); O2HB 96.8 % (95.0-99.0); PO2(98.6) 102 mmHg (60-100); SAMPLE BLOOD; THB 8.5 g/dL (11.5-17.4); pH(98.6) 7.26 (7.35-7.45)
[2018-04-28 04:54] LABS: MODALITY COOL AEROSOL
[2018-04-28 04:55] LABS: PCO2(98.6) 54 mmHg (35-45)
[2018-04-28 05:12] LABS: HEMATOCRIT 24.9 % (42.0-52.0); HEMOGLOBIN 8.4 g/dL (14.0-18.0); MCH 29.5 PG (27-31); MCHC 33.7 g/dL (33-37); MCV 87.4 FL (81-99); MPV 10.3 FL (7.4-10.4); RBC 2.85 XMIL (4.7-6.1); RDW 18.2 % (11.5-14.5); WBC 9.79 X1000 (4.8-10.8)
[2018-04-28 05:33] LABS: ALB/GLOB RATIO 0.6; ALBUMIN 3.3 g/dL (3.5-5.0); CALCIUM 10.3 mg/dL (8.8-10.2); CREATININE 8.2 mg/dL (0.7-1.2); TOTAL BILIRUBIN 0.16 mg/dL (0.20-1.00); TOTAL PROTEIN 8.6 g/dL (6.3-8.3)
[2018-04-28] MEDS: DIFLUCAN 100 MG/NS 100 MG/50 ML IVPB IV SCH ×2 (06:05→06:52)
--- NOTE | 2018-04-28 06:27 | GENERAL SURGERY PROGRESS NOTE ---
DATE: 04/28/2018 SUBJECTIVE: Patient doing about the same. Trach doing fine. He is on trach collar. Still with significant edema, unsure if he can swallow. We will try to place PEG tube on Wednesday and, at the same time, per Nephrology request, we will try to place a tunneled hemodialysis catheter. We will hold tube feeds after midnight. cc: MD Capri Velasquez MD
[2018-04-28] MEDS ORDERED: NS 2,000 ML MISC PRN (06:44)
[2018-04-28] MEDS ORDERED: HEPARIN IV PRN (06:44)
[2018-04-28] MEDS ORDERED: TIGHT: 0.2 ML/HR FOR DIALYSIS MISC PRN (06:44)
--- NOTE | 2018-04-28 07:39 | Diag Imaging Result Doc PS360 ---
EXAM: CHEST-PORTABLE INDICATION: ventilator pt TECHNIQUE: One view COMPARISON: 04/27/2018 FINDINGS: Support tubes and lines are in stable positions. The linear opacities at the mid and lower lung zones bilaterally have not changed, probably representing atelectasis. No new consolidation is identified. Cardiac silhouette is stable. IMPRESSION: Stable chest. Electronically signed by Carlos Bray 04/28/2018 7:36 AM
[2018-04-28] MEDS: COMBIGAN OPHTH SOLN BOTH EYES SCH ×2 (08:04→20:23)
[2018-04-28] MEDS: MYCOSTATIN CREAM TOP SCH ×2 (08:04→20:23)
[2018-04-28] MEDS: HUMULIN N SUBQ SCH ×2 (08:05→20:33)
[2018-04-28] MEDS: MIRALAX PO SCH (08:11)
--- NOTE | 2018-04-28 08:44 | PROGRESS NOTE ---
DATE: 04/28/2018 Mr. Vega has had persistent nausea and vomiting. He had high residuals with the tube feedings. Tube feedings were held. They have placed an NG tube to low Gomco suction. He is awake and easily arousable. He opens his eyes to verbal stimuli. He follows simple commands. He continues to breathe comfortably. He is maintaining O2 saturations of 100% on 40% oxygen. Blood gases demonstrated a pH of 7.2, pCO2 54, PO2 102 and O2 sat 99%. Blood sugars are consistently less than 100. PHYSICAL EXAMINATION: Vital Signs: He is afebrile. Pulse 95, respirations 18. CV: Regular rate and rhythm. Lungs: Faint crackles in the bases bilaterally. Abdomen: Soft, nontender, with active bowel sounds. LABORATORY DATA: Electrolytes demonstrated a sodium 132, potassium 4.0, chloride 90, BUN 85, creatinine 8.2. A CBC demonstrated a white count 9.79, hemoglobin 8.4, hematocrit 24.9 and platelet count 277,000. ASSESSMENT AND PLAN: 1. Acute respiratory failure with hypoxia secondary to aspiration pneumonia. He had a large amount of nausea and vomiting last night and early this morning. His breathing seems unlabored although he is requiring more oxygen. I will recheck a portable chest x-ray today. 2. Nausea and vomiting. I suspect that he has some degree of gastroparesis. I will begin Reglan 5 mg IV q.6 hours. 3. Acute renal failure. It does not appear that his renal function is improving. He will continue dialysis per Dr. Cruz. 4. Septic left knee. Cultures grew out MRSA. We will continue to dose him with vancomycin with dialysis. cc: Capri Rossi MD
[2018-04-28] MEDS: REGLAN IV SCH ×3 (10:28→20:23)
--- NOTE | 2018-04-28 11:11 | Diag Imaging Result Doc PS360 ---
EXAM: CHEST-PORTABLE INDICATION: NG tube placement TECHNIQUE: One view COMPARISON: 04/28/2018 FINDINGS: The newly placed NG tube projects well below the diaphragm and is assumed to be in the body of the stomach in the expected position. Limited views of the lung parenchyma appear stable. IMPRESSION: Newly placed NG tube in expected position as described. Electronically signed by Carlos Bray 04/28/2018 11:09 AM
--- NOTE | 2018-04-28 13:14 | PROGRESS NOTE ---
DATE: 04/28/2018 SUBJECTIVE: Mr. Vega is a 53 -year-old male with a left knee wound following a removal of his left total knee arthroplasty, irrigation debridement and ex-fix placement. He had a wound VAC placed 2 days ago and has been doing well. OBJECTIVE: He is sedated and appears comfortable. Left lower extremity his wound VAC is intact and functioning. He has 2+ pedal pulse on the left lower extremity. The pin sites of the ex-fix are clean and dry with no sign of infection. ASSESSMENT: Left knee wound post removal of left total knee arthroplasty, irrigation, debridement and ex-fix placement. PLAN: We are going to remove his wound VAC tomorrow with the wound care nurse at bedside and we will further soft assess the wound at that time. Hopefully will have some improvement with the wound and so we can continue with the wound VAC. Dictated by REESE Mason for Jasson Yan MD cc: REESE Mason MD M. Neel Roberts, MD [facility] CENTERAbdirashid
--- NOTE | 2018-04-28 14:28 | NEPHROLOGY PROGRESS NOTE ---
DATE: 04/28/2018 TIME SEEN: 0705. SUBJECTIVE: Mr. Vega is resting quietly in bed. He remains on cool aerosol to midline trach. He is awake. He remains nonverbal. OBJECTIVE: Vital Signs: Temperature 98.4 degrees, blood pressure is 120/79, heart rate 94, respirations are 18. He is on 100% cool aerosol. Last recorded saturation is 99%. He has had 1,090 in, 350 mL out. Labs: Sodium 132, potassium 4, chloride 90, CO2 21, BUN 85, creatinine 8.2, glucose 95, anion gap 21, calcium is 10.3, albumin 3.3. White count 9.79, hemoglobin 8.4, hematocrit 24.9, with a platelet count 277,000. ABGs, pH 7.26, CO2 54, PO2 102, bicarb 22.6 on 100% cool aerosol. PHYSICAL EXAMINATION: General: This is a 53-year-old male resting quietly in bed, in no acute distress, though he appears chronically ill. Skin: Warm and dry. HEENT: Normocephalic, atraumatic. Conjunctivae pale. He has SANDRA. Mucous membranes are dry. Neck: Supple. Trachea midline. Unable to determine JVD secondary to his trach collar strings. Cardiovascular: He is regular rate and rhythm. S4 is present. Lungs: Clear to auscultation anteriorly. Equal excursion with diminished posterior bases. He remains on O2 support. Abdomen: Soft, nontender. Positive bowel sounds. Tube feedings remain in place. Due to high residual, this is now attached to low intermittent suction. Extremities: Patient has a splint to the left knee. Trace edema, left greater than right. Integumentary: The patient has no rashes or lesions. Genitourinary: Not inspected. Minimal void with dialysis assist. ASSESSMENT AND PLAN: 1. Acute kidney injury. Patient has had no recovery in urine output. We will plan for dialysis today. He is to dialyze for 3.5 hours. We will pull 2-3 L of ultrafiltration on a 2K bath. 2. Electrolytes and acid-base balance with correction on dialysis. 3. Anemia. This is low but stable. 4. Respiratory failure. Patient is extubated on a trach collar, tolerating well. 5. Sepsis. Followed by Dr. Yan and the Primary Care team with renal-dosed antibiotics. I would like to thank you for allowing us to follow with this patient. Dictated by EUGENE Agee for Donell Cruz MD cc: EUGENE Agee MD M. Neel Roberts, MD
[2018-04-28] MEDS ORDERED: VANCOMYCIN 1 GM/NS 1 GM/250 ML IVPB IV ONE (17:00)
[2018-04-28] MEDS: LOVENOX SUBQ SCH (20:23)
[2018-04-28] MEDS: PROTONIX IV SCH (20:23)
[2018-04-28] MEDS: PATADAY 0.2% OPH SOLUTION BOTH EYES SCH (20:23)
[2018-04-29] MEDS: DUONEB (A & A) INH SCH ×6 (02:37→22:39)
[2018-04-29] MEDS: REGLAN IV SCH ×4 (02:41→20:22)
[2018-04-29] MEDS: BENADRYL LIQUID NG SCH ×4 (02:41→20:15)
[2018-04-29] MEDS: HUMULIN R SUBQ SCH ×6 (03:12→23:39)
[2018-04-29 04:28] LABS: HEMATOCRIT 27.8 % (42.0-52.0); HEMOGLOBIN 9.1 g/dL (14.0-18.0); MCH 28.8 PG (27-31); MCHC 32.7 g/dL (33-37); MPV 10.2 FL (7.4-10.4); RBC 3.16 XMIL (4.7-6.1); WBC 13.4 X1000 (4.8-10.8)
[2018-04-29 04:41] LABS: ALLEN TEST YES; BE -0.9 mmoll (-3.0-3.0); BLOOD TYPE ARTERIAL; HCO3-(ACT) 24.2 mmoll (20.0-26.0); METHB 0.9 % (0.0-1.5); MODALITY COOL AEROSOL; O2(CT) 12.6 mL/dL (15.0-23.0); O2HB 96.9 % (95.0-99.0); PO2(98.6) 116 mmHg (60-100); SAMPLE BLOOD; SAO2 99.6 % (95.0-100.0); THB 9.1 g/dL (11.5-17.4); pH(98.6) 7.29 (7.35-7.45)
[2018-04-29 04:42] LABS: PCO2(98.6) 54 mmHg (35-45)
[2018-04-29 05:43] LABS: ALB/GLOB RATIO 0.6; ALBUMIN 3.5 g/dL (3.5-5.0); CALCIUM 9.6 mg/dL (8.8-10.2); POTASSIUM 4.2 mmol/L (3.5-5.1); TOTAL BILIRUBIN 0.32 mg/dL (0.20-1.00); TOTAL PROTEIN 9.4 g/dL (6.3-8.3)
--- NOTE | 2018-04-29 06:08 | GENERAL SURGERY PROGRESS NOTE ---
DATE: 04/29/2018 Nursing staff reports no major changes. He seems to be more alert. He is still on trach collar, breathing okay. The edema around his mouth appears to be improving. At this point, his kidney function is not improved so he needs a tunneled hemodialysis catheter. We will try to do that and place a PEG tube today for protein malnutrition. We will get consent from the family. cc: MD Capri Velasquez MD
[2018-04-29] MEDS: MORPHINE IV PRN ×2 (07:30→16:27)
--- NOTE | 2018-04-29 07:37 | Diag Imaging Result Doc PS360 ---
CHEST-PORTABLE - 04/29/2018 INDICATION: ventilator pt COMPARISON: 04/28/2018 FINDINGS: Support tubes are stable. There has been significant improvement in aeration of the left lower lobe. There is some persistent mild patchy infiltrate or atelectasis in both lung bases. Heart size and pulmonary vascularity remains top normal. No large pleural effusion. IMPRESSION: Significant improvement from prior. Electronically signed by Neel Ramírez 04/29/2018 7:35 AM
[2018-04-29] MEDS: COMBIGAN OPHTH SOLN BOTH EYES SCH ×2 (08:07→20:22)
[2018-04-29] MEDS: DIFLUCAN 100 MG/NS 100 MG/50 ML IVPB IV SCH (08:16)
--- NOTE | 2018-04-29 08:19 | PROGRESS NOTE ---
DATE: 04/29/2018 SUBJECTIVE: Mr. Vega is a 53-year-old male with a left knee wound status post removal of his left total knee arthroplasty, irrigation debridement, and Ex-Fix placement. He has been on a wound VAC for the past three day. We changed the wound VAC at bedside this morning. OBJECTIVE: He is a well-developed male. He is alert. He is in no acute distress. His left knee wound has improved since wound VAC placement last Wednesday. There is good granulation tissue that is forming. The dimensions of the medial wound is 5.5 x 4 x 1 inch deep. The dimensions of the lateral wound is 2 inches x 1.5 inches x 0.5 inches deep. The distal pin sites are clean and dry. The proximal pin sites have some drainage from them, and there is some erythema surrounding the pin sites. He continues to have a good pulse on his left lower extremity. ASSESSMENT: Left knee wound status post removal of his left total knee arthroplasty, irrigation, debridement Ex-Fix placement. PLAN: We are going to start cleaning the pin sites with peroxide daily. We are going to continue with the wound VAC management. Wound care nurse is placing the other wound VAC on his knee today, and we will change it next Wednesday and further assess his wound at that time. Dictated by REESE Mason for Jasson Yan MD cc: REESE Mason MD M. Neel Roberts, MD
[2018-04-29] MEDS: MYCOSTATIN CREAM TOP SCH ×2 (08:21→20:23)
--- NOTE | 2018-04-29 08:57 | PROGRESS NOTE ---
DATE: 04/29/2018 SUBJECTIVE: Mr. Vega is much more awake. He is responsive to verbal stimuli. He follows simple commands. He is having minimal output via the wound VAC. Urine output is still minimal. His BUN and creatinine were 59 and 6. He is breathing comfortably with the trach collar. OBJECTIVE: Vital Signs: His O2 saturations are 98% to 100%. He is afebrile. Pulse 95, respiratory rate 12. Cardiovascular: Regular rate and rhythm. Lungs: Faint crackles in the bases bilaterally. Abdomen: Soft, nontender, with active bowel sounds. ASSESSMENT AND PLAN: 1. Acute respiratory failure secondary to aspiration pneumonia. The acute respiratory failure has resolved. He is maintaining good O2 saturations on a trach collar. 2. Septic left knee with severe sepsis. I believe that the acute sepsis has resolved. He is having minimal output via the wound vacuum-assisted closure. He will need intravenous vancomycin dosed with dialysis for a total 6 to 8 weeks. 3. Acute renal failure secondary to suspected acute tubular necrosis. Unfortunately, his renal function is not improving. He is not having any increase in urine output. He is going to the operating room today for tunneled catheter placement. 4. Mild protein-calorie malnutrition. He is scheduled for placement of a PEG tube today, and we will begin bolus feedings. 5. Type 2 insulin-dependent diabetes mellitus. His blood sugars are consistently less than 100. I will reduce the insulin to 15 units subcutaneously twice daily. cc: Capri Rossi MD
--- NOTE | 2018-04-29 09:03 | NEPHROLOGY PROGRESS NOTE ---
DATE: 04/29/2018 SUBJECTIVE: Patient resting in bed. He is awake. He follows commands. Nonverbal. OBJECTIVE: Vital Signs: Temperature 100.1 degrees, pulse 99, respiratory rate 8, blood pressure 104/70. Intake 1 L; output 550 mL. General: This is a middle-aged gentleman resting in bed. Chronically ill appearing, in no acute distress. HEENT: Normocephalic, atraumatic. Oral mucosa dry. Conjunctivae are pale. Neck: Supple. No JVD. Cardiovascular: Regular rate and rhythm with a gallop. Pulmonary: He is clear bilaterally. Decreased breath sounds. O2 supplementation with a trach collar. Abdomen: Soft, with positive bowel sounds. : Stoner catheter. Small amount of urine. Extremities: Splint and external fixators to the left. A wound VAC noted. Trace edema. Integumentary: Skin is warm and dry otherwise. LAB DATA: WBC of 13.4, hemoglobin 9. Sodium 136, potassium 4.2, CO2 23, creatinine 6.0 (8.6). ASSESSMENT AND PLAN: 1. Acute kidney injury without recovery and oliguria. We have been dialyzing him on a Wednesday, , Wednesday schedule. We will continue this plan for the immediate time being. I understand the patient will likely go back to surgery today. We will plan to dialyze him tomorrow in the morning. I understand he is supposed to go for a tunneled dialysis catheter today. 2. Electrolytes, acid-base balance, anemia. These have been stable. Continue to treat on dialysis. 3. Respiratory failure. Remains on a trach collar. 4. Sepsis. Wounds followed by Primary, Surgery. Dictated by EUGENE Smith for Donell Cruz MD cc: MD Capri Stoner MD MTDD
[2018-04-29] MEDS: HUMULIN N SUBQ SCH ×2 (09:48→20:23)
[2018-04-29] MEDS: MIRALAX PO SCH (09:49)
[2018-04-29] MEDS: D50W SYRINGE IV PRN (11:15)
[2018-04-29] MEDS ORDERED: XYLOCAINE 1% ONE (13:29)
[2018-04-29] MEDS ORDERED: NS 250 ML ONE (13:29)
[2018-04-29] MEDS ORDERED: SENSORCAINE 0.5%-EPI 1:200,000 ONE (13:29)
[2018-04-29] MEDS ORDERED: NORCURON ONE (13:59)
[2018-04-29] MEDS ORDERED: NEO-SYNEPHRINE ONE (14:02)
[2018-04-29] MEDS ORDERED: ROBINUL ONE (14:45)
[2018-04-29] MEDS ORDERED: NEOSTIGMINE ONE (14:47)
--- NOTE | 2018-04-29 15:11 | OPERATIVE NOTE ---
PROCEDURE DATE: 04/29/2018 PREOPERATIVE DIAGNOSES: 1. Severe protein malnutrition. 2. Acute renal failure requiring hemodialysis. POSTOPERATIVE DIAGNOSES: 1. Severe protein malnutrition. 2. Acute renal failure requiring hemodialysis. 3. Gastritis. PROCEDURES: 1. EGD. 2. Percutaneous endoscopic gastrostomy tube placement. 3. Ultrasound of fluoroscopic-guided right internal jugular vein tunneled hemodialysis catheter. SURGEON: David No MD. NETWORK RELATIONS CONSULTANT: None. ANESTHESIA: General endotracheal. FINDINGS: Some gastritis noted. Good transillumination and digital palpation for the PEG. Ultrasound showed a good caliber right internal jugular vein. Fluoroscopy showed the catheter in good position. COMPLICATIONS: None at time of dictation. ESTIMATED BLOOD LOSS: 10 mL. SPECIMENS REMOVED: None. BRIEF HISTORY: A 53-year-old gentleman who has been on the ventilator for a while. He developed severe protein malnutrition. He needed a PEG tube. He also had acute renal failure, and felt that he would need long-term dialysis. We obtained consent from the family for both procedures. DESCRIPTION OF PROCEDURE: After informed consent was obtained, the patient was brought to the operative theatre, transferred to the operating table and placed in the supine position. The patient had a previous tracheostomy, and remained intubated for the entirety of the case. We proceeded first with the EGD and PEG. We placed an oral bite block in. We did a formal time-out, confirming patient, date, and procedure. All were in agreement. We inserted the EGD scope, and passed it all the way into the esophagus, into the stomach into the duodenum. There was some gastritis noted, and some trauma from the previous NG tube. We found a spot inferior to the costal margin and lateral to the xiphoid that transilluminated digital palpation. We used local anesthetic after prepping the abdomen in a standard fashion. I made a small stab incision, directed the needle to the area, and saw it go into the stomach. We put a snare and grasper rope, and a wire. We then pulled it out through the esophagus, attached the PEG tube to the wire, and then pulled it back into the abdomen with the typical Ponsky pull method securing the PEG tube at the skin at approximately 3 cm. We inserted the EGD scope, saw in good position. We secured it in place. We then turned our attention to the neck. We prepped and draped the neck in a standard fashion. We used the ultrasound to identify the right internal jugular vein, and used local anesthetic. Then, I was able to cannulate the right internal jugular vein, and pass a wire. It was seen go into superior vena cava under fluoro. I then created on the right chest wall pocket and tunneled hemodialysis catheter from the right chest wall to the neck, and exchanged over the wire in typical Seldinger technique to place tip of the catheter superior vena cava. All ports aspirated and flushed easily. We then secured in place in a standard fashion. The patient had sterile dressings applied. He tolerated the procedure. cc: MD Capri Velasquez MD MTDAbdirashid
--- NOTE | 2018-04-29 15:35 | Diag Imaging Result Doc PS360 ---
EXAM: CHEST-PORTABLE HISTORY: CVL placement TECHNIQUE: Chest single view COMPARISON: 5:07 AM FINDINGS: Interval placement of a right jugular line. The tip lies at the junction of the superior vena cava and right atrium. No pneumothorax. No other interval change. IMPRESSION: Right jugular line in good position with no postprocedural pneumothorax. Electronically signed by Hugo Juares 04/29/2018 3:32 PM
[2018-04-29] MEDS: PROTONIX IV SCH (20:22)
[2018-04-29] MEDS: PATADAY 0.2% OPH SOLUTION BOTH EYES SCH (20:22)
[2018-04-29] MEDS: LOVENOX SUBQ SCH (20:23)
[2018-04-30] MEDS: BENADRYL LIQUID NG SCH ×4 (02:14→21:28)
[2018-04-30] MEDS: DUONEB (A & A) INH SCH ×6 (02:43→22:58)
[2018-04-30] MEDS: REGLAN IV SCH ×4 (03:30→21:29)
[2018-04-30] MEDS: HUMULIN R SUBQ SCH ×5 (03:32→21:29)
[2018-04-30 04:35] LABS: HEMATOCRIT 25.5 % (42.0-52.0); HEMOGLOBIN 8.4 g/dL (14.0-18.0); MCH 29.1 PG (27-31); MCHC 32.9 g/dL (33-37); MCV 88.2 FL (81-99); MPV 9.8 FL (7.4-10.4); RBC 2.89 XMIL (4.7-6.1); RDW 17.9 % (11.5-14.5); WBC 12.51 X1000 (4.8-10.8)
[2018-04-30 04:38] LABS: ALLEN TEST YES; BE -5.7 mmoll (-3.0-3.0); BLOOD TYPE ARTERIAL; HCO3-(ACT) 20.5 mmoll (20.0-26.0); METHB 1.3 % (0.0-1.5); O2(CT) 12.3 mL/dL (15.0-23.0); O2HB 96.6 % (95.0-99.0); PCO2(98.6) 35 mmHg (35-45); PO2(98.6) 142 mmHg (60-100); SAMPLE BLOOD; SAO2 99.5 % (95.0-100.0); SRATE 12 BPM; THB 8.8 g/dL (11.5-17.4); TVOL 600 mL; pH(98.6) 7.35 (7.35-7.45)
[2018-04-30 04:39] LABS: MODALITY VENTILATOR
[2018-04-30 05:00] LABS: ALB/GLOB RATIO 0.6; ALBUMIN 3.1 g/dL (3.5-5.0); CALCIUM 10.4 mg/dL (8.8-10.2); CREATININE 8.3 mg/dL (0.7-1.2); POTASSIUM 4.6 mmol/L (3.5-5.1); TOTAL BILIRUBIN 0.71 mg/dL (0.20-1.00); TOTAL PROTEIN 8.7 g/dL (6.3-8.3)
[2018-04-30] MEDS: MIRALAX PO SCH (08:01)
--- NOTE | 2018-04-30 08:01 | Diag Imaging Result Doc PS360 ---
CHEST-PORTABLE - 04/30/2018 INDICATION: ventilator pt COMPARISON: 04/29/2018 FINDINGS: Stable tracheostomy tube and right dialysis catheter. Stable patchy atelectasis or infiltrates in the lung bases. No new infiltrates. Heart size remains normal. IMPRESSION: No change from prior. Electronically signed by Neel Ramírez 04/30/2018 7:58 AM
[2018-04-30] MEDS: MYCOSTATIN CREAM TOP SCH ×2 (08:04→21:31)
[2018-04-30] MEDS: COMBIGAN OPHTH SOLN BOTH EYES SCH ×2 (08:05→21:36)
[2018-04-30] MEDS: DIFLUCAN 100 MG/NS 100 MG/50 ML IVPB IV SCH (08:05)
[2018-04-30] MEDS ORDERED: TIGHT: 0.2 ML/HR FOR DIALYSIS MISC PRN (08:21)
[2018-04-30] MEDS ORDERED: NS 2,000 ML MISC PRN (08:21)
[2018-04-30] MEDS ORDERED: HEPARIN IV PRN (08:21)
--- NOTE | 2018-04-30 09:08 | PROGRESS NOTE ---
DATE: 04/30/2018 SUBJECTIVE: Mr. Vega is awake and easily arousable. He responds to verbal stimuli. He is following simple commands. He is breathing comfortably. He is maintaining O2 saturations of 99 to 100 percent on FiO2 of 40%. OBJECTIVE: His chest x-ray this morning demonstrates stable patchy atelectasis in the lung bases. There were no new infiltrates. He is currently undergoing dialysis on Wednesday, and Wednesday. A tunnelled catheter was placed yesterday. His blood sugars are ranging from 108 to 130, temperature 98.1 degrees, pulse 95, respiratory rate 19. Blood pressure 110/68. CV: Regular rate and rhythm. Lungs: Coarse rhonchi in the lung arenas. Abdomen soft, nontender, with active bowel sounds. ASSESSMENT AND PLAN: 1. Acute renal failure secondary to acute tubular necrosis. Unfortunately, he does not seem to be recovering any renal function. His BUN and creatinine were 88 and 8.3 this morning. I suspect that he will be on dialysis for the foreseeable future. He will be dialyzed today. 2. Metabolic encephalopathy secondary to septic left knee and sepsis. The sepsis has largely resolved. Cultures grew out Methicillin-resistant Staphylococcus aureus. We will continue to a dose vancomycin after each dialysis treatment for total of 8 weeks. 3. Type 2 insulin-dependent diabetes mellitus. We will continue NPH insulin and monitor her sugars closely. We will consult the dietitian to review recommendations for tube feedings and resume tube feedings via the PEG. cc: Capri Rossi MD
[2018-04-30] MEDS: HUMULIN N SUBQ SCH ×2 (12:04→21:30)
--- NOTE | 2018-04-30 12:50 | NEPHROLOGY PROGRESS NOTE ---
DATE: 04/30/2018 SUBJECTIVE: Patient resting in bed. He is awake and alert. He is currently on a trach collar. He is breathing on his own. He had a tunnel catheter placed yesterday. He has had some bleeding around the insertion site overnight. OBJECTIVE: Vital Signs: Temperature 98.8 degrees, pulse 95, respiratory rate 12, blood pressure 117/78. Intake 725 mL; output 3.2 L. General: This is a middle-aged gentleman resting in bed. Awake and alert. He follows commands. He is in no acute distress. HEENT: Normocephalic, atraumatic. Neck: Supple. Chest: He has a tunneled catheter to the right upper chest wall. It has obvious bleeding and oozing. Cardiovascular: Regular rate and rhythm. Pulmonary: He is clear bilaterally. Again, he is on a trach collar. He does have to be encouraged to take a deep breath periodically. Abdomen: Soft, with positive bowel sounds. : Not inspected. Extremities: Fixator splint to the left knee. Integumentary: Skin is warm and dry. He has a wound VAC noted. LAB DATA: WBC of 12.5, hemoglobin 8.4. Sodium 137, potassium 4.6, CO2 18, creatinine 8.3. ASSESSMENT AND PLAN: 1. Acute renal failure with acute tubular necrosis without recovery, dialyzing today. A 2 potassium bath, ultrafiltration to his last in-weight 3-1/2 hour treatment. Patient has a tunneled catheter. He should be able to continue dialysis as an outpatient for the foreseeable future when he goes to long-term acute care. He does have some oozing around the tunneled catheter site. Dr. No has been beeped by the attending nurse. We will defer to Surgery for evalulation and treatment, and hopefully can wait and dialyze this gentleman this afternoon. 2. Methicillin-resistant Staphylococcus aureus septic left knee and sepsis. He is on vancomycin. Continue this after each dialysis treatment. Dictated by EUGENE Smith for Donell Cruz MD cc: MD Capri Stoner MD MTDD
--- NOTE | 2018-04-30 15:17 | PULMONOLOGY PROGRESS NOTE ---
DATE: 04/30/2018 INTERIM HISTORY: The patient became nonresponsive yesterday evening with a decrease in his oxygen saturation despite being suctioned. The patient was placed back on mechanical ventilation. He did require Ambu ventilation before his oxygen saturation is improved. His oxygen saturation continued to improve overnight with weaning of his oxygen. The patient is back on trach collar this morning. He is awake and alert. He is slow to respond, but he does interact with examiner. OBJECTIVE: Vital Signs: Maximum temperature in the last 24 hours 100.1 degrees, current temperature 98.3 degrees, BP 128/88, heart rate 98, respiratory rate 18, oxygen saturation 97% on trach collar. HEENT: Pupils are equal and reactive. Oropharynx appears clear. Neck: Supple. Chest: Reveals occasional rhonchi bilaterally. Cardiac exam: S1, S2. Abdomen: Soft with positive bowel sounds. Extremities: Without edema. LABORATORIES/X-RAYS: Chest x-ray reveals patchy infiltrates in the lung bases. Arterial blood gas reveals a pH of 7.35, pCO2 of 35, PO2 of 142. White blood count 12.51, hemoglobin 8.4, platelet count 347,000. Sodium 137, potassium 4.6, chloride 91, bicarbonate 18. BUN 88, creatinine 8.3. IMPRESSION: 1. A 53-year-old with acute hypoxemic respiratory failure. 2. Acute hypercapnic respiratory failure. 3. Acute renal failure. 4. Staphylococcus aureus bacteremia associated with a left knee total arthroplasty with subsequent removal of the hardware and fusion of the left knee. 5. Status post 3 failed extubations with subsequent tracheostomy placement. He continues to require intermittent mechanical ventilation for periods of respiratory decompensation. RECOMMENDATIONS: 1. Continue to place patient on tracheostomy as tolerated with initiation of mechanical ventilation with periods of decompensation. 2. Continue tube feeds. 3. Continue vancomycin. cc: MD Capri Schmidt MD
[2018-04-30] MEDS ORDERED: VANCOMYCIN 1 GM/NS 1 GM/250 ML IVPB IV ONE (17:00)
[2018-04-30] MEDS: LOVENOX SUBQ SCH (21:31)
[2018-04-30] MEDS: PROTONIX IV SCH (21:31)
[2018-04-30] MEDS: MORPHINE IV PRN (23:12)
[2018-04-30] MEDS: PATADAY 0.2% OPH SOLUTION BOTH EYES SCH (23:15)
[2018-05-01] MEDS: HUMULIN R SUBQ SCH ×7 (00:34→20:23)
[2018-05-01] MEDS: DUONEB (A & A) INH SCH ×6 (02:55→23:06)
[2018-05-01] MEDS: BENADRYL LIQUID NG SCH ×4 (03:56→20:23)
[2018-05-01] MEDS: REGLAN IV SCH ×4 (03:57→20:25)
[2018-05-01 04:25] LABS: ALLEN TEST YES; BE -2.9 mmoll (-3.0-3.0); BLOOD TYPE ARTERIAL; HCO3-(ACT) 22.6 mmoll (20.0-26.0); METHB 0.9 % (0.0-1.5); O2(CT) 24.4 mL/dL (15.0-23.0); O2HB 95.4 % (95.0-99.0); PO2(98.6) 94 mmHg (60-100); SAMPLE BLOOD; SAO2 97.9 % (95.0-100.0); THB 18.2 g/dL (11.5-17.4); pH(98.6) 7.27 (7.35-7.45)
[2018-05-01 04:27] LABS: MODALITY COOL AEROSOL; PCO2(98.6) 55 mmHg (35-45)
[2018-05-01 06:29] LABS: HEMATOCRIT 26.9 % (42.0-52.0); HEMOGLOBIN 8.9 g/dL (14.0-18.0); MCH 29.7 PG (27-31); MCHC 33.1 g/dL (33-37); MCV 89.7 FL (81-99); MPV 10.3 FL (7.4-10.4); WBC 15.59 X1000 (4.8-10.8)
[2018-05-01 06:50] LABS: ALB/GLOB RATIO 0.7; ALBUMIN 3.4 g/dL (3.5-5.0); CREATININE 5.8 mg/dL (0.7-1.2); POTASSIUM 4.3 mmol/L (3.5-5.1); TOTAL BILIRUBIN 0.69 mg/dL (0.20-1.00); TOTAL PROTEIN 8.6 g/dL (6.3-8.3)
[2018-05-01] MEDS: MIRALAX PO SCH (08:21)
--- NOTE | 2018-05-01 08:21 | Diag Imaging Result Doc PS360 ---
CHEST-PORTABLE - 05/01/2018 INDICATION: ventilator pt COMPARISON: 04/30/2018 FINDINGS: Support lines and tubes are stable. Stable linear atelectasis or infiltrates in the lung bases bilaterally. No new infiltrates. Heart size remains top normal. IMPRESSION: No change from prior. Electronically signed by Neel Ramírez 05/01/2018 8:19 AM
[2018-05-01] MEDS: DIFLUCAN 100 MG/NS 100 MG/50 ML IVPB IV SCH (08:22)
[2018-05-01] MEDS: COMBIGAN OPHTH SOLN BOTH EYES SCH ×2 (08:23→20:31)
[2018-05-01] MEDS: HUMULIN N SUBQ SCH ×2 (08:26→20:26)
[2018-05-01] MEDS: MYCOSTATIN CREAM TOP SCH ×2 (08:26→20:27)
[2018-05-01] MEDS ORDERED: HUMULIN N SUBQ SCH (09:00)
--- NOTE | 2018-05-01 09:09 | PROGRESS NOTE ---
DATE: 05/01/2018 SUBJECTIVE: Mr. Vega had an episode of decreased O2 saturation, and was placed back on mechanical ventilation. Blood gases this morning demonstrate a pH of 7.27, pCO2 of 55, PO2 of 94, and an O2 saturation of 97.9. Chest x-rays demonstrate stable infiltrates in the lung bases bilaterally. There are no new infiltrates. OBJECTIVE: General: He is awake and easily arousable. He opens his eyes to verbal stimuli. He follows simple commands. He is tolerating tube feedings. Blood sugars are ranging from 187 to 290. Vital Signs: He is afebrile, pulse 96, respiratory rate 12, BP 105/71. CV: Regular rate and rhythm. Lungs: Faint crackles in the bases bilaterally. Abdomen: Soft, nontender, with active bowel sounds. ASSESSMENT AND PLAN: 1. Acute respiratory failure with hypoxia. 2. Staphylococcus aureus sepsis secondary to a septic left knee with left total knee arthroplasty. 3. Acute renal failure. 4. Severe protein calorie malnutrition. The patient appears responsive. He tried to speak this morning. He follows simple commands. He tracked me in the room. We will continue to initiate mechanical ventilation for periods of decompensation, and continue to get him back on the tracheostomy as tolerated. He is scheduled for dialysis in the morning. We will continue to dose vancomycin after each dialysis treatment. He was noted to have a leukocytosis of 15,000. I will obtain a urinalysis and a urine culture today as he does have a Stoner catheter, and the urine appeared cloudy. cc: Capri Rossi MD
--- NOTE | 2018-05-01 09:38 | NEPHROLOGY PROGRESS NOTE ---
DATE: 05/01/2018 SUBJECTIVE: Patient had decreased O2 saturations and was placed back on mechanical ventilation. He is resting easily this morning. OBJECTIVE: Vital Signs: Temperature 98.5 degrees, pulse 92, respiratory rate 12, blood pressure 103/68. Intake 1.3 L. Output 2.8 L. General: This is a middle-aged gentleman resting in bed. Currently sedated. Mechanically ventilated. No acute distress. HEENT: Normocephalic, atraumatic. Oral mucosa dry. Neck: Supple. He has a tracheostomy. Cardiovascular: Regular rate and rhythm. Pulmonary: He has some crackles bilaterally but no wheeze or rales, again mechanically ventilated. Abdomen: Soft. Positive bowel sounds. : Stoner catheter. Extremities: Continues with fixator device. Wounds and wound VAC noted. Integumentary: Skin is warm and dry otherwise. Lab Data: WBC of 15.5, hemoglobin 8.9. Sodium 137, potassium 4.3, CO2 22, creatinine 5.8. ASSESSMENT AND PLAN: 1. Acute renal failure, acute tubular necrosis without recovery. We have been dialyzing him on a Wednesday, , Wednesday schedule. We will plan to continue this while he remains in the hospital. I know there was some plan to try to get him to long-term acute care tomorrow. Unclear if that will happen with overnight events. We will dialyze with additional treatment as warranted. 2. Methicillin-resistant Staphylococcus aureus septic left knee, total left knee arthroplasty. On appropriately dosed antibiotics after dialysis. Dictated by EUGENE Smith for Donell Cruz MD cc: MD Capri Stoner MD
--- NOTE | 2018-05-01 12:57 | PULMONOLOGY PROGRESS NOTE ---
DATE: 05/01/2018 SUBJECTIVE: The patient is arousable to alert. He had some decline in mental status last evening, with oxygen desaturation requiring re-initiation of mechanical ventilation. OBJECTIVE: Vital Signs: The patient has been afebrile for the last 24 hours. Blood pressure 104/70, heart rate 90, respiratory rate 14, oxygen saturation 97%. HEENT: Pupils are equal and reactive. Oropharynx appears clear. Lips are prominent, both upper and lower. Neck: Supple. Chest: Coarse rhonchi bilaterally. Cardiac: S1, S2. Abdomen: Soft. Extremities: Unchanged. DIAGNOSTIC STUDIES: Chest x-ray reveals bibasilar infiltrates. Arterial blood gas reveals pH 7.27, pCO2 of 55, PO2 of 94. There is no new microbiology data. White blood count 15.6, hemoglobin 8.9, platelet count 410,000. IMPRESSION: A 53-year-old with: 1. Acute hypoxemic respiratory failure. 2. Acute hypercapnic respiratory failure. 3. Acute renal failure. 4. Staphylococcus aureus bacteremia associated with left knee total arthroplasty with fusion at the left knee and removal of the hardware. 5. Status post 3 failed extubations with subsequent tracheostomy placement. He continues to intermittently require mechanical ventilation. RECOMMENDATION: 1. Continue to cycle the patient off ventilator and on tracheostomy collar as tolerated. Etiology for decompensations is not clear. MRI of the brain will be considered, but may not be possible with his external fixator device. This would need to be checked before an MRI was pursued. 2. Continue tube feeds. 3. Continue vancomycin. 4. Continue glucose control. cc: MD Capri Schmidt MD
[2018-05-01 18:20] LABS: URINE SOURCE CATH
[2018-05-01 18:27] LABS: BILIRUBIN URINE NEGATIVE (NEGATIVE); BLOOD URINE SMALL (NEGATIVE); COLOR BROWN; GLUCOSE URINE NEGATIVE (NEGATIVE); KETONE URINE NEGATIVE (NEGATIVE); LEUKOCYTES URINE LARGE (NEGATIVE); NITRITE URINE NEGATIVE (NEGATIVE); PH URINE 5.5; PROTEIN URINE 50 mg/dL (NEGATIVE); SP GRAVITY URINE 1.018; TURBIDITY URINE TURBID (CLEAR); UROBILINOGEN URINE NORMAL (NORMAL)
[2018-05-01 18:28] LABS: UR EPITHELIAL CELLS >10 /HPF (<10); URINE BACTERIA NEGATIVE /HPF; URINE RBC <10 /HPF (<10); URINE WBC 20-40 /HPF (<10)
[2018-05-01] MEDS ORDERED: LEVAQUIN 250 MG/D5W 250 MG/50 ML IVPB IV SCH (20:00)
[2018-05-01] MEDS: LOVENOX SUBQ SCH (20:27)
[2018-05-01] MEDS: PROTONIX IV SCH (20:28)
[2018-05-01] MEDS: PATADAY 0.2% OPH SOLUTION BOTH EYES SCH (20:28)
[2018-05-02] MEDS: HUMULIN R SUBQ SCH ×4 (00:45→12:17)
[2018-05-02] MEDS: REGLAN IV SCH ×3 (01:21→08:09)
[2018-05-02] MEDS: BENADRYL LIQUID NG SCH ×2 (01:22→08:07)
[2018-05-02] MEDS: DUONEB (A & A) INH SCH ×3 (03:31→11:00)
[2018-05-02 04:28] LABS: ALLEN TEST YES; BE -0.1 mmoll (-3.0-3.0); BLOOD TYPE ARTERIAL; HCO3-(ACT) 24.8 mmoll (20.0-26.0); O2(CT) 12.7 mL/dL (15.0-23.0); O2HB 96.1 % (95.0-99.0); PCO2(98.6) 35 mmHg (35-45); PO2(98.6) 94 mmHg (60-100); SAMPLE BLOOD; SAO2 98.8 % (95.0-100.0); SRATE 12 BPM; THB 9.3 g/dL (11.5-17.4); TVOL 600 mL; pH(98.6) 7.44 (7.35-7.45)
[2018-05-02 04:31] LABS: MODALITY VENTILATOR
[2018-05-02 07:16] LABS: ALB/GLOB RATIO 0.5; ALBUMIN 1.9 g/dL (3.5-5.0); POTASSIUM 2.9 mmol/L (3.5-5.1); TOTAL BILIRUBIN 1.25 mg/dL (0.20-1.00); TOTAL PROTEIN 5.6 g/dL (6.3-8.3)
[2018-05-02] MEDS ORDERED: POTASSIUM CHLORIDE 40 MEQ/SWI 40 MEQ/100 ML IVPB IV ONE (07:38)
--- NOTE | 2018-05-02 07:43 | Diag Imaging Result Doc PS360 ---
CHEST-PORTABLE - 05/02/2018 INDICATION: ventilator pt COMPARISON: 05/01/2018 FINDINGS: Support lines and tubes are stable. Stable bibasilar atelectasis. Heart size remains slightly enlarged. No new infiltrates. IMPRESSION: No change from prior. Electronically signed by Neel Ramírez 05/02/2018 7:41 AM
[2018-05-02 07:57] LABS: HEMATOCRIT 24.3 % (42.0-52.0); MCH 28.9 PG (27-31); MCHC 32.9 g/dL (33-37); MCV 87.7 FL (81-99); MPV 9.6 FL (7.4-10.4); RBC 2.77 XMIL (4.7-6.1); WBC 14.66 X1000 (4.8-10.8)
[2018-05-02] MEDS: MIRALAX PO SCH (08:07)
[2018-05-02] MEDS: DIFLUCAN 100 MG/NS 100 MG/50 ML IVPB IV SCH (08:07)
[2018-05-02] MEDS: COMBIGAN OPHTH SOLN BOTH EYES SCH (08:09)
[2018-05-02] MEDS: MYCOSTATIN CREAM TOP SCH (08:10)
[2018-05-02] MEDS: HUMULIN N SUBQ SCH (08:10)
--- NOTE | 2018-05-02 08:34 | DISCHARGE SUMMARY ---
ADMISSION DATE: 04/08/2018 DISCHARGE DATE: 05/02/2018 DIAGNOSIS DIAGNOSES: 1. Metabolic encephalopathy. 2. Severe sepsis due to methicillin-resistant Staph aureus of the left knee. 3. Acute respiratory failure secondary to aspiration pneumonia. 4. Acute renal failure secondary to acute tubular necrosis requiring hemodialysis. 5. Diabetic ketoacidosis. 6. Idiopathic mental retardation. 7. Essential hypertension. DISCHARGE INSTRUCTIONS: 1. The patient will be transferred to the LTAC unit in [place], [place] via ambulance. 2. Nepro at 45 mL per hour with 30 mL flush every 4 hours and Liquacel b.i.d. MEDICATIONS: 1. DuoNeb nebulized q.4 hours. 2. Timolol 1 drop to each eye b.i.d. 3. Lovenox 30 mg subcutaneously daily. 4. Diflucan 100 mg IV daily. 5. Lasix 40 mg IV daily. 6. Levaquin 250 mg and 5 IV daily. 7. Reglan 5 mg IV q.6 hours. 8. Morphine sulfate IV q.4 hours p.r.n. pain. 9. Pataday 0.2% ophthalmic solution 1 drop to both eyes at night. 10. Pantoprazole 40 mg IV daily. 11. Vancomycin 1 g IV after each dialysis treatment. He will need to receive vancomycin after each dialysis treatment for an additional 1 month. 12. Humulin N 35 units subcutaneously b.i.d. PHYSICAL EXAM: This is a chronically ill 53-year-old, gentleman. He is awake and is responsive to verbal stimuli. He tracks you about the room, he follows simple commands. CV: Regular rate and rhythm. Lungs: Coarse rhonchi bilaterally. Abdomen: Soft, nontender, with active bowel sounds. Extremities: Without edema. HOSPITAL COURSE: Mr. Vega was admitted to [facility] with diabetic ketoacidosis. The patient was initially admitted to the ICU and the DKA protocol was initiated. With fluid resuscitation and insulin drip his ketoacidosis resolved. Patient was transitioned to long-acting insulin. At the time of discharge his blood sugars were ranging from 155 to 240. The patient was admitted to [facility] with a metabolic encephalopathy. He was felt to have severe sepsis from an underlying infected left knee. Dr. Yan performed removal of the left total knee arthroplasty, irrigation and debridement of the left knee, antibiotic bead placement and expanding compression external fixator on 04/09/2018. The patient was started on broad-spectrum antibiotics including vancomycin and Zosyn pending cultures. Wound cultures grew out MRSA. The patient was continued on IV vancomycin and will need to continue to receive vancomycin with each dialysis treatment for additional 1 month. Postoperatively he went into acute respiratory failure and required a mechanical intubation. Initially, the patient was weaned off the ventilator but required reextubation. He was gradually weaned off the vent again and required mechanical ventilation because of multiple episodes in which the patient required reintubation. It was felt that he would benefit from a tracheostomy. The tracheostomy was placed successfully and the patient was transitioned to a trach collar. He has subsequently had periods of hypoxia requiring reintubation. Dr. Bashir has recommended that we continued to cycle the patient off the ventilator and on the tracheostomy collar as tolerated. He did have an episode of angioedema which was treated with oral Benadryl. As a result of the underlying sepsis he went into acute renal failure. His renal failure continue to decline and Dr. Cruz was consulted to see the patient. A Vas-Cath was placed and dialysis was initiated. Unfortunately after multiple dialysis treatments his renal function was not improving and urine output was at a minimum. Dr. Cruz's felt that he would require prolonged dialysis. He has been dialyzed on Wednesday, Wednesday and Wednesday. Dr. No placed a tunneled catheter for the purpose of hemodialysis. The patient has severe protein calorie malnutrition. We initially fed him with Nepro via a nasogastric tube. We later placed the PEG tube. He has been receiving Nepro at 45 mL/h with 30 mL flush every 4 hours. He is tolerating tube feedings with minimal residuals. After a prolonged hospitalization, it was felt that he would still require fairly intensive care with prolonged weaning hemodialysis and nutritional support. The LTAC unit was consulted to evaluate the patient for admission and the patient was accepted. The patient was transferred to the LTAC unit in stable condition today. cc: Capri Rossi MD
--- NOTE | 2018-05-02 11:26 | PULMONOLOGY PROGRESS NOTE ---
DATE: 05/02/2018 SUBJECTIVE: The patient is awake and alert. He nods that he is doing okay. He has been maintained on mechanical ventilation overnight. OBJECTIVE: Vital Signs: The patient has been afebrile for the last 24 hours. Blood pressure 113/71, heart rate 98, respiratory rate 13, oxygen saturation 99%. HEENT: Pupils are equal and reactive. Oropharynx appears clear. Neck: Supple. Chest: Reveals good air entry bilaterally without wheezing or rhonchi. Cardiac: S1, S2. Abdomen: Soft. Extremities: Reveal a fixer device and wound VAC in position. Pin sites are clear. LABORATORY DATA: Arterial blood gas reveals a pH 7.44, pCO2 of 35, PO2 of 94, on mechanical ventilation. White blood count 14.6, hemoglobin 8.0, platelet count 380,000. Sodium 146, potassium 2.9, chloride 110, bicarbonate 21, BUN 63, creatinine 2.0, total protein 5.6, albumin 1.8. IMPRESSION: A 53-year-old with: 1. Acute hypoxemic respiratory failure. 2. Acute hypercapnic respiratory failure. 3. Acute renal failure. 4. Staphylococcus aureus pneumonia, status post removal of hardware and fusion of the left knee due to an infected left knee joint. 5. Status post 3 failed extubations with tracheostomy placement. He will do well for 24-36 hours and then have decompensation. Hopefully, this will improve over time. RECOMMENDATION: 1. Continue to cycle the patient off ventilator and placed on tracheostomy collar each day. We will plan on a tracheostomy collar in the daytime with the ventilator at night. 2. Continue tube feeds. We will need to augment free water. 3. Continue vancomycin. 4. Anticipate transfer to an LTAC in the near future. He is a stable candidate for transfer. cc: MD Capri Schmidt MD
--- NOTE | 2018-05-02 11:35 | NEPHROLOGY PROGRESS NOTE ---
DATE: 05/02/2018 TIME SEEN: 06. SUBJECTIVE: Mr. Vega is resting in bed. He is awake and alert. He remains on a trach collar. OBJECTIVE: Vital Signs: His most recent vital signs, temperature 98.8 degrees, blood pressure 109/68, heart rate 98, respirations 24. He is on 40% trach collar. Last recorded saturation 96%. He has had 1575 in and 100 out. Labs: His most recent labs, sodium 146, potassium 2.9, chloride is 110, CO2 21, BUN 63, creatinine 2, glucose 123, his anion gap is 15, his calcium is 8, his albumin is 1.9. White count 14.66, hemoglobin 8, hematocrit 24.3, platelet count 380,000. Physical Examination: General: This is a 53-year-old, male resting quietly in bed. He appears in no acute distress. His skin is warm and dry. HEENT: Normocephalic, atraumatic. Conjunctivae are pale. He has SANDRA. Mucous membranes are dry. Neck: Supple. Trachea midline. He has no evidence of JVD. Cardiovascular: He is regular rate and rhythm. He is tachycardic on the monitor. Lungs: These are clear to auscultation bilaterally. He remains on O2 support. Abdomen: He is soft. No tenderness noted. PEG tube remains in place with binder intact. Genitourinary: Not inspected. Minimal void with dialysis assist. Extremities: He has a splint to his left knee. No edema present bilateral. Integumentary: Skin is warm and dry. Wound VAC is noted. The patient also has a tunneled dialysis catheter to the right chest wall. Neurological: As above. ASSESSMENT AND PLAN: 1. Acute renal failure with acute tubular necrosis without recovery. The patient is requiring hemodialysis. We will plan for dialysis in the morning. No indications for intervention today. 2. Electrolytes. Patient is hypokalemic. We will replace his potassium via nasogastric tube or percutaneous endoscopic gastrostomy tube if not already ordered. 3. Acid-base balance, with correction on dialysis. 4. Anemia. This remains low but stable. 5. Methicillin-resistant Staphylococcus aureus septic knee. The patient remains on vancomycin, renally dosed. 6. Respiratory failure. Patient has been extubated and remains on a cool aerosol trach collar. I would like to thank you for allowing us to follow with this patient. Dictated by Cher M. Mcgovern, COAL INSPECTOR for Donell Cruz MD Face to face encounter, data reviewed, discussed with Diamond Mcgovern on 05/02/18. I agree with the above assessment and plan of care. cc: EUGENE Agee MD M. Neel Roberts, MD [facility] HOSPITALAbdirashid
[2018-05-02 13:10] VITALS: BP 106/65
== END 2018-05-02 12:45 | DRG 3 ==
LOC: ED 09:25 → 3S 15:47 → ICU 04-09 19:26
PROVIDERS: ADMIT Internal Medicine; ATTEND Internal Medicine
CPT/HCPCS: 36430; 70450; 71010; 71045; 73560; 73562; 76000; 76770; 77001; 80048; 80053; 80069; 80074; 80202; 81001; 81003; 82009; 82550; 82553; 82570; 82805; 82948; 83605; 83735; 84100; 84134; 84156; 84300; 84484; 85025; 85027; 85610; 85730; 86706; 86850; 86900; 86901; 86920; 87040; 87070; 87075; 87077; 87088; 87186; 87205; 87324; 87449; 87491; 87591; 88300; 88305; 88312; 89051; 89220; 93005; 93010; 94002; 94003; 94150; 94640; 94660; 94761; 94762; 96361; 96365; 97162; 99285; A9270; C1725; C1750; C9113; J0330; J1100; J1170; J1450; J1644; J1650; J1815; J1940; J1956; J2060; J2250; J2270; J2310; J2370; J2405; J2543; J2765; J2930; J3010; J3260; J3370; J3480; J7030; J7040; J7042; J7050; J7070; J7120; J7121; P9016; S0164; XXXXX

== ENCOUNTER 2018-08-01 03:40 | Inpatient (IN) ==
[2018-08-01] MEDS ORDERED: LR 1,000 ML ONE ×2 (08:27→14:03)
[2018-08-01] MEDS ORDERED: KEFZOL 1 GM/D5W 2 GM/100 ML IVPB ONE (08:27)
[2018-08-01] MEDS ORDERED: FENTANYL ONE (09:32)
[2018-08-01] MEDS ORDERED: XYLOCAINE-MPF 2% ONE (09:37)
[2018-08-01] MEDS ORDERED: AMIDATE ONE (09:38)
[2018-08-01] MEDS ORDERED: NEOSPORIN G.U. IRRIGANT ONE (11:40)
[2018-08-01] MEDS ORDERED: NEO-SYNEPHRINE ONE (12:58)
[2018-08-01] MEDS ORDERED: LASIX ONE (12:58)
[2018-08-01] MEDS: PHENERGAN ONE (14:08)
[2018-08-01] MEDS: DILAUDID ONE ×3 (14:18→14:50)
[2018-08-01] MEDS: LABETALOL IV ONE (14:46)
[2018-08-01] MEDS ORDERED: NS 1,000 ML ONE (14:50)
[2018-08-01] MEDS ORDERED: D50W SYRINGE IV PRN (16:00)
[2018-08-01] MEDS ORDERED: SODIUM CHLORIDE 0.9% INJ ONE (16:00)
[2018-08-01] MEDS ORDERED: NORCO-5 PO PRN (16:00)
[2018-08-01] MEDS ORDERED: PHENERGAN IV ONE (16:00)
[2018-08-01] MEDS: NS 1,000 ML IV SCH (16:12)
[2018-08-01] MEDS: HUMALOG SUBQ SCH (18:13)
[2018-08-01] MEDS: KEFZOL 2 GM/D5W 2 GM/50 ML IVPB IV SCH (18:18)
[2018-08-01] MEDS: MORPHINE IV PRN ×2 (18:19→21:33)
[2018-08-01 19:01] LABS: URINE SOURCE CATH
[2018-08-01 19:03] LABS: BILIRUBIN URINE NEGATIVE (NEGATIVE); BLOOD URINE TRACE (NEGATIVE); COLOR STRAW; GLUCOSE URINE NEGATIVE (NEGATIVE); KETONE URINE 20 mg/dL (NEGATIVE); LEUKOCYTES URINE NEGATIVE (NEGATIVE); NITRITE URINE NEGATIVE (NEGATIVE); PH URINE 6.5; PROTEIN URINE NEGATIVE (NEGATIVE); SP GRAVITY URINE 1.008; TURBIDITY URINE CLEAR (CLEAR); UR EPITHELIAL CELLS <10 /HPF (<10); URINE BACTERIA NEGATIVE /HPF; URINE RBC <10 /HPF (<10); URINE WBC <10 /HPF (<10); UROBILINOGEN URINE NORMAL (NORMAL)
[2018-08-01] MEDS ORDERED: ROBAXIN PO PRN (19:58)
[2018-08-01] MEDS ORDERED: BENADRYL PO PRN (19:58)
[2018-08-01] MEDS ORDERED: TYLENOL PO PRN (19:58)
[2018-08-01] MEDS ORDERED: INSULIN LISPRO SQ SCH (20:00)
[2018-08-01] MEDS ORDERED: TIMOLOL MALEATE ophthalmic (eye) SCH (21:00)
[2018-08-01] MEDS: ZOFRAN IV PRN (21:45)
[2018-08-01] MEDS: ATROVENT NEB INH SCH (21:48)
[2018-08-01] MEDS: RESTORIL PO SCH (22:00)
[2018-08-02] MEDS: HUMULIN N SUBQ SCH ×3 (00:44→21:37)
[2018-08-02] MEDS: MORPHINE IV PRN ×3 (00:45→07:45)
[2018-08-02] MEDS: LABETALOL IV ONE (02:18)
[2018-08-02] MEDS: PHENERGAN ONE (02:18)
[2018-08-02] MEDS: HUMALOG SUBQ SCH ×2 (02:19→07:45)
[2018-08-02] MEDS: KEFZOL 2 GM/D5W 2 GM/50 ML IVPB IV SCH (03:08)
[2018-08-02] MEDS: ATROVENT NEB INH SCH ×4 (03:14→21:25)
[2018-08-02] MEDS: ZOFRAN IV PRN (03:54)
[2018-08-02] MEDS ORDERED: TORADOL IV ONE (04:51)
[2018-08-02 06:11] LABS: BASO# 0.01 X1000 (0.0-0.2); BASO% 0.1 % (0.0-0.8); EOS# 0.03 X1000 (0.0-0.7); EOS% 0.2 % (0.0-10.0); HEMATOCRIT 30.9 % (42.0-52.0); HEMOGLOBIN 10.8 g/dL (14.0-18.0); IMM GRAN# 0.03 X1000 (0.0-0.04); IMM GRAN% 0.2 % (0.0-0.5); LYMPH% 6.2 % (20.5-51.1); MCH 31.6 PG (27-31); MCV 90.4 FL (81-99); MONO# 0.83 X1000 (0.11-0.59); MONO% 6.5 % (1.7-9.3); MPV 10.6 FL (7.4-10.4); NEUT# 11.11 X1000 (1.4-6.5); NEUT% 86.8 % (42.2-75.2); PLT 235 X1000 (130-400); RBC 3.42 XMIL (4.7-6.1); RDW 12.5 % (11.5-14.5); WBC 12.81 X1000 (4.8-10.8)
[2018-08-02 06:24] LABS: AGAP 11; ALB/GLOB RATIO 1.3; ALBUMIN 3.5 g/dL (3.5-5.0); ALKALINE PHOSPHATASE 104 U/L (32-122); BUN 10 mg/dL (8-22); CALCIUM 8.5 mg/dL (8.8-10.2); CHLORIDE 102 mmol/L (98-107); COSMO 285; CREATININE 1.1 mg/dL (0.7-1.2); ESTIMATED GFR > 60; GLUCOSE 225 mg/dL (70-104); GOT 16 U/L (10-34); GPT 9 U/L (10-44); POTASSIUM 3.8 mmol/L (3.5-5.1); SODIUM 140 mmol/L (136-145); TCO2 27 mmol/L (25-35); TOTAL PROTEIN 6.1 g/dL (6.3-8.3)
--- NOTE | 2018-08-02 07:37 | EKG Report ---
Test Performed on : 08/02/2018 04:30:55 AM Test Reason : Tachycardia Blood Pressure : / mmHG Vent. Rate : 125 BPM Atrial Rate : 125 BPM P-R Int : 142 ms QRS Dur : 070 ms QT Int : 310 ms P-R-T Axes : 025 -30 004 degrees QTc Int : 447 ms Sinus tachycardia. Possible Left atrial enlargement Left axis deviation Abnormal ECG When compared with ECG of 09-APR-2018 15:52, QRS duration has decreased Nonspecific T wave abnormality has replaced inverted T waves in Anterior leads Confirmed by Talat GARCIA, Vargas Infante ([id number]) on 08/02/2018 7:29:08 PM
[2018-08-02] MEDS ORDERED: LEVAQUIN 500 MG/D5W 500 MG/100 ML IVPB IV SCH (08:00)
--- NOTE | 2018-08-02 08:05 | EKG Report ---
Test Performed on : 08/02/2018 07:58:51 AM Test Reason : palpitations Blood Pressure : / mmHG Vent. Rate : 119 BPM Atrial Rate : 119 BPM P-R Int : 136 ms QRS Dur : 078 ms QT Int : 310 ms P-R-T Axes : 045 -29 012 degrees QTc Int : 436 ms Sinus tachycardia. Possible Left atrial enlargement Nonspecific T wave abnormality Abnormal ECG When compared with ECG of 02-AUG-2018 04:30, (Unconfirmed) Nonspecific T wave abnormality now evident in Lateral leads Confirmed by Talat GARCIA, Vargas Infante ([id number]) on 08/02/2018 7:29:42 PM
[2018-08-02] MEDS: ZYRTEC PO SCH (08:32)
[2018-08-02] MEDS: PERIDEX MT SCH ×2 (08:32→21:36)
[2018-08-02] MEDS: CYMBALTA PO SCH (08:32)
[2018-08-02] MEDS ORDERED: LASIX PO SCH (09:00)
[2018-08-02] MEDS ORDERED: VANCOMYCIN IV PER PHARMACY MISC SCH (09:15)
[2018-08-02] MEDS: DILAUDID ONE (09:29)
--- NOTE | 2018-08-02 09:37 | Diag Imaging Result Doc PS360 ---
EXAM: ABDOMEN FLAT/UPRIGHT INDICATION: abdominal distention TECHNIQUE: 2 views COMPARISON: None. FINDINGS: There is a fair amount stool in the colon, which may indicate mild constipation. There is no obstructive bowel pattern and no evidence of large volume free abdominal gas. There is an NG tube that projects below the diaphragm and is assumed to be in the lumen of the stomach in expected position. There is no evidence of organomegaly. IMPRESSION: Possible mild constipation. Electronically signed by Carlos Bray 08/02/2018 9:34 AM
[2018-08-02 10:35] LABS: URINE SOURCE CLEAN CATCH
[2018-08-02 10:49] LABS: BILIRUBIN URINE NEGATIVE (NEGATIVE); BLOOD URINE SMALL (NEGATIVE); COLOR YELLOW; GLUCOSE URINE NEGATIVE (NEGATIVE); KETONE URINE 40 mg/dL (NEGATIVE); LEUKOCYTES URINE TRACE (NEGATIVE); NITRITE URINE NEGATIVE (NEGATIVE); PROTEIN URINE 30 mg/dL (NEGATIVE); SP GRAVITY URINE 1.021; TURBIDITY URINE CLEAR (CLEAR); UR EPITHELIAL CELLS <10 /HPF (<10); URINE BACTERIA NEGATIVE /HPF; URINE WBC <10 /HPF (<10); UROBILINOGEN URINE NORMAL (NORMAL)
[2018-08-02] MEDS: HUMULIN R SUBQ SCH ×3 (11:21→21:37)
[2018-08-02] MEDS: NS IV SCH (12:07)
[2018-08-02] MEDS: VANCOMYCIN IV SCH (12:07)
[2018-08-02] MEDS: TENORMIN PO SCH ×2 (12:09→21:36)
[2018-08-02] MEDS: NS 1,000 ML IV SCH ×2 (21:35→23:11)
[2018-08-02] MEDS: NORCO-7.5 PO PRN (21:36)
[2018-08-02] MEDS: RESTORIL PO SCH (21:36)
[2018-08-03] MEDS: ATROVENT NEB INH SCH ×5 (04:01→21:30)
[2018-08-03] MEDS: HUMULIN R SUBQ SCH ×4 (06:21→22:12)
[2018-08-03 06:24] LABS: HEMATOCRIT 27.1 % (42.0-52.0); HEMOGLOBIN 9.3 g/dL (14.0-18.0); MCH 32.1 PG (27-31); MCHC 34.3 g/dL (33-37); MCV 93.4 FL (81-99); MPV 10.2 FL (7.4-10.4); RBC 2.9 XMIL (4.7-6.1); RDW 12.6 % (11.5-14.5); WBC 10.41 X1000 (4.8-10.8)
[2018-08-03 06:27] LABS: AGAP 3; BUN 6 mg/dL (8-22); CALCIUM 8.5 mg/dL (8.8-10.2); CHLORIDE 100 mmol/L (98-107); COSMO 272; CREATININE 0.8 mg/dL (0.7-1.2); ESTIMATED GFR > 60; GLUCOSE 145 mg/dL (70-104); POTASSIUM 3.4 mmol/L (3.5-5.1); SODIUM 136 mmol/L (136-145); TCO2 33 mmol/L (25-35)
[2018-08-03] MEDS: ZYRTEC PO SCH (08:36)
[2018-08-03] MEDS: CYMBALTA PO SCH (08:36)
[2018-08-03] MEDS: TENORMIN PO SCH ×2 (08:36→22:11)
[2018-08-03] MEDS: PERIDEX MT SCH ×2 (08:36→22:10)
[2018-08-03] MEDS: HUMULIN N SUBQ SCH ×2 (08:37→22:13)
[2018-08-03] MEDS: NS 1,000 ML IV SCH (10:14)
[2018-08-03] MEDS: LEVAQUIN 250 MG/D5W 250 MG/50 ML IVPB IV SCH (10:15)
[2018-08-03] MEDS: NS IV SCH (11:17)
[2018-08-03] MEDS: VANCOMYCIN IV SCH (11:17)
--- NOTE | 2018-08-03 15:32 | OPERATIVE NOTE ---
PROCEDURE DATE : 08/01/2018 PREOPERATIVE DIAGNOSIS: Left knee external fixator with delayed union of knee fusion. POSTOPERATIVE DIAGNOSIS: Left knee external fixator with delayed union of knee fusion. PROCEDURE PERFORMED: Removal of external fixator, revision of pin sites with irrigation, debridement and curettage of the pin tract, and placement of a left long fusion nail size 11.5 x 740 Raymond nail with 2 locking screws distally and 1 static locking screw proximally. ANESTHESIA: General. SURGEON: Jasson Yan MD. JOINT SETTER: Glory López PA-C, who was present throughout the case and whose assistance was critical for removal of external fixator, revision of the pin site tracts, and placement of the femoral nail and wound closure. Her assistance was critical for success of the procedure. BLOOD LOSS: Minimal. DESCRIPTION OF PROCEDURE: The patient was brought to the operative suite and placed in the supine position. After successful administration of general anesthesia, the external fixator was removed and then the leg was prepped and draped in the usual sterile fashion. Elliptical incisions were made overlying each of the pin tracts. These were dissected down to the origin of the bone removing all the pin tract and then curettaging the bone. Once this was completed attention was directed to the nail. A longitudinal incision was made at the tip of the greater trochanter. A guide pen was placed in the center of the femoral canal on AP and lateral images. It was reamed with a 2 mm cannulated reamer. A ball tip guide pin was buried across the femur, across the knee fusion, and into the distal ankle. It was serially reamed to a size 13.5 to accept a 11.5 nail. The 11.5 x 740 nail was then driven into place and then once it was in proper position 2 distal locking screws were placed through stab incisions using the perfect north fork techniques. Once these were in place we backslapped the nail to compress the knee and then a proximal dynamic screw was placed using the proximal guide. The guide was then removed. The wounds were all copiously irrigated. The fascia over the pin tracts was closed with 0 Vicryl, the skin edges were all approximated with 2-0 Vicryl, and the skin incisions were closed with nylon. A sterile dressing was applied. The patient tolerated the procedure well without complication. At the end of the procedure all counts were correct. The patient was transported to the recovery room in stable condition. cc: Jassno Yan MD MTDD
[2018-08-03] MEDS: NORCO-7.5 PO PRN (19:09)
--- NOTE | 2018-08-03 19:36 | ORTHOPAEDICS PROGRESS NOTE ---
DATE: 08/03/2018 SUBJECTIVE: Galen Vega is a 53-year-old male who underwent fusion of the knee on Wednesday. He has no significant complaints today and states he wishes to go home. OBJECTIVE: He is a well developed, well nourished male. He is alert and cooperative with exam. His wounds are clean, dry, and intact without sign of infection. He has had minimal ambulation with physical therapy, however, and only been able to stand up and walk a couple steps with a walker without putting any weight on his leg. IMPRESSION: Left knee fusion. PLAN: He cannot be discharged home until his wounds are healing nicely and completely, and he is able to weight bear as tolerated on his left leg. He may need to go back to rehab later in the week. I suspect that is what we will end up doing on or Wednesday. cc: Jasson Yan MD
--- NOTE | 2018-08-03 20:49 | INFECTIOUS DISEASE PROGRESS NO ---
DATE: 08/03/2018 PRESENT ILLNESS: The patient is status post fusion of the left knee with a fusion nail. MEDICATIONS: The patient is receiving vancomycin. This is day 1 of treatment with vancomycin. PHYSICAL EXAMINATION: Vital Signs: Temperature maximum was 100.6, now it is 99.1, pulse 96, respirations 16, blood pressure 140/83. General: This is a somewhat ill-appearing, middle-aged male. He is in no acute distress. Head, eyes, ears, nose, and throat: He can hear my spoken words and see near objects. He does not have any white patches on his tongue. Lungs: Clear to auscultation. Cardiovascular: Regular heart rate. Neck: No stiffness. Extremities: The patient's left leg has dressings on it. The dressings are intact. There is no drainage coming from the dressing. LAB AND X-RAY: There is no new radiographic study. CBC shows a white count of 10,410, hemoglobin 9.3, platelet count 175,000, creatinine is 0.8. GFR is greater than 60. Urine cultures negative. Blood cultures are pending. ASSESSMENT AND PLAN: The patient has had surgery to fuse the knee. My plan is to continue with vancomycin pending further results. I am going to discontinue Levaquin. COMORBIDITIES: The patient is a diabetic. cc: MD Jasson Wheatley MD
[2018-08-03] MEDS: RESTORIL PO SCH (22:10)
[2018-08-04] MEDS: NORCO-10 PO PRN ×2 (00:11→08:50)
[2018-08-04] MEDS: ATROVENT NEB INH SCH ×2 (04:00→09:30)
[2018-08-04] MEDS: HUMULIN R SUBQ SCH (06:28)
[2018-08-04] MEDS ORDERED: PROTONIX PO SCH (07:00)
[2018-08-04] MEDS: PERIDEX MT SCH (08:50)
[2018-08-04] MEDS: LEVAQUIN 250 MG/D5W 250 MG/50 ML IVPB IV SCH (08:50)
[2018-08-04] MEDS: CYMBALTA PO SCH (08:51)
[2018-08-04] MEDS: TENORMIN PO SCH (08:51)
[2018-08-04] MEDS: ZYRTEC PO SCH (08:51)
[2018-08-04] MEDS: HUMULIN N SUBQ SCH (08:52)
--- NOTE | 2018-08-04 11:10 | PROGRESS NOTE ---
DATE: 08/02/2018 SUBJECTIVE: Galen Vega is a 53-year-old male who is postoperative day 1 from a left fusion nail. He complains of pain. He has no other complaints. He has an NG tube secondary to nausea and vomiting in the recovery room. OBJECTIVE: General: He is a well-developed, well-nourished male. He is alert, oriented, and cooperative with exam. Extremities: Examination of his leg reveals that he can flex and extend his toes. He has brisk cap refill and intact sensation. LABORATORY DATA: His white count is 12.8, his hemoglobin is 10.8, hematocrit is 30.9. His blood sugar is 225. ASSESSMENT: Stable left knee fusion. PLAN: Will begin physical therapy. He will likely go to rehab on . cc: Jasson Yan MD
[2018-08-04 11:23] VITALS: BP 160/83
--- NOTE | 2018-08-04 14:55 | PROGRESS NOTE ---
DATE: 08/02/2018 SUBJECTIVE: Mr. Vega is postoperative day number 1 following removal of a left external fixator and bharat placement in the left leg. He continues with a persistent tachycardia. Heart rate has been in the range of 110-130. An EKG demonstrates sinus tachycardia. He denies any chest pain, palpitations, or anginal equivalents. He has a history of hypertension. Blood pressure is fluctuating. He denies any chest pain or dyspnea. Blood sugars are fluctuating. Blood sugars are ranging from 167-229. Postoperatively, he had significant nausea and vomiting and according to Dr. Yan probably swallowed air. They placed an NG tube. He is without episodes of nausea or vomiting. OBJECTIVE: Vital signs: Temperature 98.4, pulse 122 and regular, respiratory rate 18, BP 163/93. Cardiovascular: Tachycardic, regular S1, S2. Lungs: Clear. Abdomen: Soft, nontender, without active bowel sounds. ASSESSMENT AND PLAN: 1. Hypertension. Because of the tachycardia, I will begin Toprol XL 25 mg b.i.d. and monitor his blood pressure closely. 2. Intractable nausea and vomiting. His nausea and vomiting has largely resolved. I am going to check a flat and upright abdominal film. If feasible, I will stop the NG tube and begin clear liquids. 3. Leukocytosis. He has a white count of 12,000. He is tachycardic. He has a left shift. We will check blood cultures and urine culture. I will begin intravenous Levaquin. 4. Type 2 insulin-dependent diabetes mellitus. We will continue NPH insulin 15 units subcutaneous b.i.d. plus sliding scale insulin and pattern sugars. cc: MD Jasson Su MD
--- NOTE | 2018-08-04 18:34 | INFECTIOUS DISEASE CONSULT REP ---
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 RECOMMENDATIONS: I have discontinued Levaquin and placed the patient on vancomycin. I plan to treat the patient for a total of 8 weeks because given the infection that he has had in his knee involving the total knee arthroplasty, it also most assuredly involves bone, and the newest recommendation for treatment of methicillin-resistant Staphylococcus aureus bone infection, i.e., osteomyelitis, is to treat for 8 weeks. DISCUSSION: The patient had an infected left total knee arthroplasty. Multiple cultures taken from the knee and 1 time from the blood grew methicillin-resistant Staphylococcus aureus. The isolate was susceptible to vancomycin, gentamicin, tetracycline and trimethoprim-sulfamethoxazole. LABORATORY DATA: The patient's laboratory studies thus far today show a CBC with a white count of 12,810, hemoglobin of 10.8, and platelet count of 235,000. Creatinine is 1.1. GFR is greater than 60. Liver function studies are normal. Urinalysis did not show any white cells or bacteria. Blood cultures are pending. REVIEW OF SYSTEMS: Eyes and Ears: The patient denies any trouble hearing or seeing. Neck: No stiffness. Respiratory: No cough or shortness of breath. Cardiac: No chest pain or palpitations. GI: No nausea, vomiting or diarrhea. : No dysuria or flank pain. Bones/joints/muscles: See discussion of present illness. Neurologic: The patient does not have headaches. He has not recently lost any motor or sensory function. PREVIOUS HOSPITALIZATIONS AND OPERATIONS: The patient has had a left total knee arthroplasty implanted. It became infected, and there was a repeat surgery trying to clean out the prosthesis. This did not clear the infection, and yesterday the patient had a removal of his total knee arthroplasty, and a bharat was put in as mentioned above. MEDICAL DISEASES: Positive for diabetes mellitus, hypertension, myocardial infarction, stroke, and osteoarthritis. INFECTIOUS DISEASE HISTORY: Positive for urinary tract infection and a left total knee arthroplasty infection with methicillin-resistant Staphylococcus aureus. FAMILY HISTORY: Positive for hypertension, myocardial infarction, diabetes mellitus and stroke. SOCIAL HISTORY: [place] He is single. He lives with 2 family members. He has a dog as a pet. He is disabled due to back pain. He does not smoke cigarettes, drink alcoholic beverages or abuse drugs. ALLERGIES: Aspirin. HOME MEDICATIONS: Tylenol, Zyrtec, Benadryl, duloxetine, furosemide, hydrocodone, insulin, Atrovent, methocarbamol, insulin, temazepam, and timolol. PHYSICAL EXAMINATION: Vital Signs: Temperature is 98.4, pulse 122, respirations 18, blood pressure 163/93. The patient weighs 193 pounds. General: This is a somewhat ill-appearing middle-aged male. He is in no acute distress. He is lethargic. Head, Eyes, Ears, Nose, Throat: He can hear my spoken words and see near objects. He does not have any white coating on his tongue. Neck: No meningismus. Lungs: Clear to auscultation. Cardiovascular: Regular heart rate. Abdomen: Slightly distended. It is soft and nontender. Extremities: The left leg has a large dressing on it. I think there is a splint also. Neurologic: The patient is lethargic. He follows requests to move his arms and right leg. Integument: No rash noted. Thank you for the consult. cc: MD Jasson Wheatley MD
--- NOTE | 2018-08-05 06:47 | DISCHARGE SUMMARY ---
ADMISSION DATE: 08/01/2018 DISCHARGE DATE: 08/04/2018 ADMISSION DIAGNOSIS: Left knee delayed union knee fusion with conversion from an external fixator to an intramedullary nail on 08/01/2018. DISCHARGE DIAGNOSIS: Left knee delayed union knee fusion with conversion from an external fixator to an intramedullary nail on 08/01/2018. MEDICATIONS: See discharge medication list. DISPOSITION: The patient discharged to rehab with instructions for weightbearing as tolerated left lower extremity. Instructed to keep his wounds clean and dry. To follow up with Dr. Yan next . HOSPITAL COURSE: On the day of admission, patient underwent conversion of his leg from an external fixator to intramedullary bharat. His postoperative course was unremarkable except for slow progress with physical therapy. At discharge, he is afebrile, tolerating a regular diet, and ambulating well with physical therapy. His wounds are clean, dry, and intact without sign of infection. We have sent him prophylactically out on Bactrim antibiotics. He will return to see Dr. Yan as followup as described above. cc: Jasson Yan MD [facility]
--- NOTE | 2018-08-05 09:08 | CONSULTATION ---
DATE OF CONSULTATION: 08/01/2018 REFERRING PHYSICIAN: Dr. Ervin Yan. REASON FOR CONSULTATION: Mr. Galen Vega is a 53-year-old gentleman with a history of multiple medical problems including essential hypertension, gastroesophageal reflux disease, mixed hyperlipidemia, type 2 insulin-dependent diabetes mellitus complicated by polyneuropathy and major depression. He had been hospitalized at [facility] from 04/08/2018 until 05/02/2018 with a septic left knee which was debrided on multiple occasions by Dr. Ervin Yan. The patient was admitted to [facility] for a left knee fusion. Postoperatively, he had intractable nausea and vomiting with distention of his abdomen requiring NG tube placement. I have been asked to see him for medical management. As noted, he had had intractable nausea and vomiting and abdominal distention. When I saw him, he had had no further nausea or vomiting. He had brownish blood-tinged discharge via the NG tube. His flat and upright abdominal film was consistent with constipation. There was no free air noted. He has a longstanding history of type 2 insulin-dependent diabetes mellitus. His blood sugars were fluctuating. He has polyuria and polydipsia. He does have a history of hypertension. Blood pressure has been elevated at times. He denies any chest pain, palpitations, or anginal equivalents. PAST MEDICAL HISTORY: As above. PAST SURGICAL HISTORY: Hemorrhoidectomy. Left total knee left patellectomy, and fusion of left knee. ALLERGIES: LOWELL inhibitors. FAMILY HISTORY: Father had known ischemic heart disease status post MS, hypertension and rheumatoid arthritis. Mother has hypertension, COPD, and insulin-dependent diabetes mellitus. SOCIAL HISTORY: He denies the use of tobacco, alcohol, or illicit drugs. REVIEW OF SYSTEMS: He denies any recent weight gain or weight loss.HEENT: No loss of visual or auditory acuity. CV: No chest pain, palpitations, or anginal equivalents. Pulmonary: No shortness of breath, PND or orthopnea. GI: See HPI. Endocrine: No polyuria, no polydipsia. No cold or heat intolerance. Skin: No easy bruisability. : No leakage of urine with coughing or laughing. Skin: No easy bruisability. Neurologic: No migraines or seizures. Psychiatric: He has history of depression. PHYSICAL EXAMINATION: General: This is a chronically ill-appearing 53-year-old gentleman in no apparent distress. Vital Signs: Temperature 99.5 degrees, pulse 115, and regular, respiratory rate 16, and BP 146/94. HEENT: Fundi with arteriolar wall thickening. Pupils equal, round, reactive to light. Extraocular eye movements intact. Neck: Supple. No masses, JVD, or bruits. CV: Tachycardic. Regular S1-S2. Lungs: Clear. Abdomen: Mildly distended with hypoactive bowel sounds. No rebound or guarding. Extremities: Trace ankle edema. ASSESSMENT AND PLAN: 1. Type 2 insulin-dependent diabetes mellitus while he was NPO. We will continue the normal saline and place him on patterned sugars and a Humulin R sliding scale. 2. Tachycardia. EKG shows sinus tachycardia. I am going to rehydrate him with normal saline as I suspect he has some degree of volume depletion. 3. Intractable nausea and vomiting. We will continue the NG tube to low Gomco suction. I will treat his nausea and vomiting on a p.r.n. basis with Phenergan. We will repeat a flat and upright abdominal films in the morning. 4. Thank you for allowing me to participate in the care of this patient. cc: MD Jasson Su MD
== END 2018-08-04 11:29 | DRG 488 ==
LOC: SURHOLD 03:40 → EDSTATUS 07:30 → 4N 12:21
PROVIDERS: ADMIT Orthopaedic Surgery; ATTEND Orthopaedic Surgery
CPT/HCPCS: 74019; 74020; 76000; 80048; 80053; 81001; 82948; 85025; 85027; 87040; 87088; 93005; 93010; 94640; 94761; 97110; 97116; 97162; 97530; A9270; J0690; J1170; J1815; J1885; J1940; J1956; J2270; J2370; J2405; J2550; J3010; J3370; J7030; J7040; J7120; XXXXX